=== PATIENT | female | born 1935 | race Caucasian/White ===

== ENCOUNTER 2019-05-27 08:12 | Outpatient (CLI) | payer MEDICARE, SELFPAY ==
--- NOTE | ~2019-05-27 | CT_ITS ---
EXAMINATION: CT abdomen pelvis w con DATE: 05/27/2019 09:04 INDICATION: Restaging, malignant neoplasm of ascending colon TECHNIQUE: Computed tomography (CT) of the abdomen and pelvis was performed with 100 cc Omnipaque 350 intravenous contrast. Automated exposure control and iterative reconstruction technique were employe d. Exam dose: 366.96 mGy-cm total exam DLP. COMPARISON: 06/02/2017 CT abdomen pelvis FINDINGS: There is mild atelectasis and/or scarring at the lung bases. Cardiomegaly. No pericardial o r pleural effusion. There are multiple small stones in the dependent aspect of the gallbladder. No gallbladder wall thick ening or pericholecystic fluid or bile duct or pancreatic duct dilatation. There are multiple splenic and occasional hepatic calcified granulomas. No hepatic, splenic, pancreatic, and adrenal or renal s pace-occupying mass lesion is detected. No urinary tract calculus or hydroureteronephrosis is evident . There is extensive atherosclerotic calcification of the abdominal aorta and iliac and femoral artery calcification. No abdominal aortic aneurysm. No intraperitoneal or retroperitoneal or pelvic mass les ion or adenopathy or ascites. The uterus, adnexal areas and urinary bladder are unremarkable. There is prominent diverticulosis of the colon. A short segment of transverse colon partially occupie s and umbilical hernia. Status post right colectomy. No bowel obstruction or intraperitoneal free air is detected. Old healed right inferior pubic ramus fracture. There is prominent degenerative change at the apophys eal joints with associated grade 1 anterolisthesis at L4-5. There is severe degenerative disc disease at L2-3, L3-4 and L5-S1. Diffuse osteopenia. IMPRESSION: Status post right colectomy for colon cancer; no metastatic disease identified Cardiomegaly Cholelithiasis Prominent diverticulosis of the colon; no CT evidence of diverticulitis Umbilical hernia containing part of a short segment of the transverse colon Reviewed, dictated and finalized at Location A. Reviewed, dictated and finalized at location B. ATIONS INTERN IMPRESSION: Status post right colectomy for colon cancer; no metastatic diseas e identified Cardiomegaly Cholelithiasis Prominent diverticulosis of the colon; no CT evidence of diverticulitis Umbilical hernia containing part of a short segment of the transverse colon
[2019-05-27 08:51] LABS: Blood Urea Nitrogen 19 mg/dL (8-26); Estimated Glomerular Filt Rate 53
== END 2019-05-27 08:13 | disposition home or self-care (01) ==
PROVIDERS: PCP Family Medicine; Visit Provider Internal Medicine Hematology & Oncology
DX: C18.2 Malignant neoplasm of ascending colon (principal); Z90.49 Acquired absence of other specified parts of digestive tract; I51.7 Cardiomegaly; K57.90 Diverticulosis of intestine, part unspecified, without perforation or abscess without bleeding; K42.9 Umbilical hernia without obstruction or gangrene
CPT/HCPCS: 36415; 74177; 80053; 82378; 82607; 82746; 85025; Q9967

== ENCOUNTER 2019-05-27 09:24 | Outpatient (CLI) | payer MEDICARE, SELFPAY ==
[2019-05-27 09:45] LABS: Basophils Absolute Auto 0.1 K/mm3 (0.0-0.1); Basophils Percent Auto 0.7 % (0.2-1.2); Eosinophils Absolute Auto 0.3 K/mm3 (0-0.3); Eosinophils Percent Auto 3.7 % (0-4.4); Hematocrit 41.5 % (37.0-47.0); Hemoglobin 13.3 g/dL (12.0-15.0); Immature Granulocyte Absolute 0.01 K/mm3 (0.00-0.031); Immature Granulocyte Percent A 0.1 % (0-0.5); Lymphocytes Absolute Auto 1.59 K/mm3 (0.9-3.2); Lymphocytes Percent Auto 19.7 % (18.3-44.2); Mean Corpuscular Hemoglobin 33.1 pg (26-34); Mean Corpuscular Volume 103.2 fl (80-100); Mean Platelet Volume 12.1 fl (7.4-10.4); Monocytes Absolute Auto 1.1 K/mm3 (0.1-0.6); Neutrophils Absolute Auto 5.1 K/mm3 (1.3-6.7); Neutrophils Percent Auto 62.8 % (45.5-73.1); Platelet Count Result 174 k/mm3 (150-375); Red Blood Count 4.02 M/mm3 (4.2-5.4); Red Cell Distribution Width 14.5 % (11.5-14.5); White Blood Count 8.1 K/mm3 (4.5-10.0)
[2019-05-27 11:56] LABS: Alanine Aminotransferase 31 U/L (4-35); Albumin Level 4.2 g/dL (3.5-5.1); Alkaline Phosphatase 75 U/L (38-126); Aspartate Amino Transferase 36 U/L (14-36); Bilirubin,Total 0.6 mg/dL (0.2-1.3); Blood Urea Nitrogen 18 mg/dL (7-17); Calcium 9.7 mg/dL (8.4-10.2); Carbon Dioxide 28 mmol/L (22-30); Chloride 98 mmol/L (98-107); Estimated Glomerular Filt Rate 60; Glucose 85 mg/dL (65-105); Potassium 4.4 mmol/L (3.4-5.0); Sodium 139 mmol/L (137-145)
[2019-05-27 12:28] LABS: Carcinoembryonic Antigen 2.1 ng/mL (0.0-3.0)
[2019-05-27 13:03] LABS: Folic Acid > 20.0 ng/mL (2.76->20)
== END 2019-05-27 09:25 | disposition home or self-care (01) ==
PROVIDERS: PCP Family Medicine; Visit Provider Internal Medicine Hematology & Oncology
DX: C18.2 Malignant neoplasm of ascending colon (principal)
CPT/HCPCS: 36415; 80053; 82378; 82607; 82746; 85025

== ENCOUNTER 2019-11-25 10:17 | Outpatient (CLI) | payer MEDICARE, SELFPAY ==
[2019-11-25 10:38] LABS: Basophils Absolute Auto 0.1 K/mm3 (0.0-0.1); Basophils Percent Auto 0.7 % (0.2-1.2); Eosinophils Absolute Auto 0.6 K/mm3 (0-0.3); Eosinophils Percent Auto 7.2 % (0-4.4); Hemoglobin 12.6 g/dL (12.0-15.0); Immature Granulocyte Absolute 0.02 K/mm3 (0.00-0.031); Immature Granulocyte Percent A 0.2 % (0-0.5); Lymphocytes Absolute Auto 1.62 K/mm3 (0.9-3.2); Lymphocytes Percent Auto 18.9 % (18.3-44.2); Mean Corpuscular HGB Conc 32.3 g/dl (32-36); Mean Corpuscular Hemoglobin 32.8 pg (26-34); Mean Corpuscular Volume 101.6 fl (80-100); Mean Platelet Volume 12.1 fl (7.4-10.4); Monocytes Absolute Auto 1.2 K/mm3 (0.1-0.6); Monocytes Percent Auto 14.3 % (2.6-8.5); Neutrophils Percent Auto 58.7 % (45.5-73.1); Platelet Count Result 173 k/mm3 (150-375); Red Blood Count 3.84 M/mm3 (4.2-5.4); Red Cell Distribution Width 15.4 % (11.5-14.5); White Blood Count 8.6 K/mm3 (4.5-10.0)
[2019-11-25 12:19] LABS: Alanine Aminotransferase 36 U/L (4-35); Albumin Level 4.2 g/dL (3.5-5.1); Alkaline Phosphatase 87 U/L (38-126); Anion Gap 8 mmol/L (8-16); Aspartate Amino Transferase 34 U/L (14-36); Bilirubin,Total 0.6 mg/dL (0.2-1.3); Blood Urea Nitrogen 18 mg/dL (7-17); Calcium 9.5 mg/dL (8.4-10.2); Carbon Dioxide 26 mmol/L (22-30); Chloride 103 mmol/L (98-107); Estimated Glomerular Filt Rate > 60; Glucose 108 mg/dL (65-105); Potassium 4.7 mmol/L (3.4-5.0); Sodium 137 mmol/L (137-145)
[2019-11-25 12:48] LABS: Carcinoembryonic Antigen 1.8 ng/mL (0.0-3.0)
== END 2019-11-25 10:18 | disposition home or self-care (01) ==
LOC: ANHLAB 10:19
PROVIDERS: PCP Family Medicine; Visit Provider Internal Medicine Hematology & Oncology
DX: C18.2 Malignant neoplasm of ascending colon (principal)
CPT/HCPCS: 36415; 80053; 82378; 85025

== ENCOUNTER 2020-01-27 10:41 | Outpatient (CLI) | payer MEDICARE, SELFPAY ==
[2020-01-27 13:19] LABS: Cholesterol 168 mg/dL (0-200); HDL Direct 55 mg/dL; Triglycerides 212 mg/dL (<150)
[2020-01-27 13:30] LABS: LDL Cholesterol Direct 67 mg/dL
== END 2020-01-27 10:42 | disposition home or self-care (01) ==
PROVIDERS: PCP Family Medicine; Visit Provider Family Medicine
DX: E78.5 Hyperlipidemia, unspecified (principal); E03.9 Hypothyroidism, unspecified; I10 Essential (primary) hypertension
CPT/HCPCS: 36415; 80061; 84443

== ENCOUNTER 2020-02-05 10:43 | Outpatient (CLI) | payer MEDICARE, SELFPAY ==
[2020-02-05 11:14] LABS: Hematocrit 41.1 % (37.0-47.0); Hemoglobin 13.2 g/dL (12.0-15.0); Mean Corpuscular HGB Conc 32.1 g/dl (32-36); Mean Corpuscular Hemoglobin 32.8 pg (26-34); Mean Platelet Volume 11.8 fl (7.4-10.4); Platelet Count Result 184 k/mm3 (150-375); Red Blood Count 4.03 M/mm3 (4.2-5.4); Red Cell Distribution Width 14.4 % (11.5-14.5)
[2020-02-05 13:12] LABS: Add Urine Microscopic? YES; Appearance Urine Clear (Clear); Bacteria Urine Trace /hpf; Bilirubin Urine Negative (Negative); Blood Urine Negative (Negative); Color Urine Yellow (Yellow); Glucose Urine UA Negative (Negative); Ketones Urine Negative (Negative); Leukocyte Esterase Ur Trace LEU/UL (Negative); Mucus Urine Rare /lpf; Nitrate Urine Negative (Negative); Protein Urine Negative (Negative); RBC Urine 0-2 /hpf (0-2); Squamous Epithelial Cell Urine Rare /hpf (Few); Transitional Epi Cells Urine Rare /hpf (None Seen); Urobilinogen Urine Negative mg/dL (<2.0)
[2020-02-05 13:17] LABS: Alanine Aminotransferase 24 U/L (4-35); Albumin Level 4.2 g/dL (3.5-5.1); Alkaline Phosphatase 71 U/L (38-126); Anion Gap 8 mmol/L (8-16); Aspartate Amino Transferase 30 U/L (14-36); Bilirubin,Total 0.5 mg/dL (0.2-1.3); Blood Urea Nitrogen 22 mg/dL (7-17); CRP < 0.5 mg/dL (<1.0); Calcium 10.1 mg/dL (8.4-10.2); Carbon Dioxide 29 mmol/L (22-30); Chloride 102 mmol/L (98-107); Estimated Glomerular Filt Rate > 60; Glucose 104 mg/dL (65-105); Potassium 4.4 mmol/L (3.4-5.0); Sodium 139 mmol/L (137-145)
[2020-02-05 13:23] LABS: Erythrocyte Sedimentation Rate 15 mm/hr (0-20)
== END 2020-02-05 10:44 | disposition home or self-care (01) ==
PROVIDERS: PCP Family Medicine; Visit Provider Internal Medicine
DX: M35.3 Polymyalgia rheumatica (principal); M19.90 Unspecified osteoarthritis, unspecified site; Z79.899 Other long term (current) drug therapy
CPT/HCPCS: 36415; 80053; 81001; 85027; 85652; 86140

== ENCOUNTER 2020-05-12 13:00 | Outpatient (CLI) | payer MEDICARE, SELFPAY ==
[2020-05-12 13:18] LABS: Basophils Absolute Auto 0.1 K/mm3 (0.0-0.1); Basophils Percent Auto 0.8 % (0.2-1.2); Eosinophils Absolute Auto 0.3 K/mm3 (0-0.3); Eosinophils Percent Auto 3.6 % (0-4.4); Hematocrit 40.4 % (37.0-47.0); Hemoglobin 12.9 g/dL (12.0-15.0); Immature Granulocyte Absolute 0.03 K/mm3 (0.00-0.031); Immature Granulocyte Percent A 0.3 % (0-0.5); Lymphocytes Absolute Auto 2.11 K/mm3 (0.9-3.2); Lymphocytes Percent Auto 22.9 % (18.3-44.2); Mean Corpuscular HGB Conc 31.9 g/dl (32-36); Mean Corpuscular Hemoglobin 32.7 pg (26-34); Mean Corpuscular Volume 102.3 fl (80-100); Mean Platelet Volume 12.3 fl (7.4-10.4); Monocytes Absolute Auto 0.9 K/mm3 (0.1-0.6); Monocytes Percent Auto 10.1 % (2.6-8.5); Neutrophils Absolute Auto 5.7 K/mm3 (1.3-6.7); Neutrophils Percent Auto 62.3 % (45.5-73.1); Platelet Count Result 184 k/mm3 (150-375); Red Blood Count 3.95 M/mm3 (4.2-5.4); Red Cell Distribution Width 14.3 % (11.5-14.5); White Blood Count 9.2 K/mm3 (4.5-10.0)
[2020-05-12 16:47] LABS: Alanine Aminotransferase 22 U/L (4-35); Alkaline Phosphatase 77 U/L (38-126); Anion Gap 8 mmol/L (8-16); Aspartate Amino Transferase 29 U/L (14-36); Bilirubin,Total 0.4 mg/dL (0.2-1.3); Blood Urea Nitrogen 19 mg/dL (7-17); Calcium 9.7 mg/dL (8.4-10.2); Carbon Dioxide 28 mmol/L (22-30); Chloride 105 mmol/L (98-107); Estimated Glomerular Filt Rate 60; Glucose 121 mg/dL (65-105); Potassium 4.2 mmol/L (3.4-5.0); Sodium 141 mmol/L (137-145)
[2020-05-12 16:49] LABS: CRP < 0.5 mg/dL (<1.0)
[2020-05-12 17:11] LABS: Erythrocyte Sedimentation Rate 15 mm/hr (0-20)
[2020-05-12 17:17] LABS: Carcinoembryonic Antigen 1.6 ng/mL (0.0-3.0)
== END 2020-05-12 13:01 | disposition home or self-care (01) ==
LOC: ANHLAB 13:02
PROVIDERS: Internal Medicine Hematology & Oncology; PCP Family Medicine; Visit Provider Internal Medicine
DX: M19.90 Unspecified osteoarthritis, unspecified site (principal); C18.2 Malignant neoplasm of ascending colon; M35.3 Polymyalgia rheumatica
CPT/HCPCS: 36415; 80053; 82378; 85025; 85652; 86140

== ENCOUNTER 2020-08-20 15:32 | Outpatient (CLI) | payer MEDICARE, SELFPAY ==
--- NOTE | ~2020-08-20 | MM_ITS ---
EXAMINATION: MM screening [facility] BI w josiane HISTORY: Screening mammogram TECHNIQUE: Craniocaudal and mediolateral oblique 3-D tomosynthesis images were obtained and synthetic 2-D images were generated. CAD analysis was submitted and interpreted. COMPARISON: 12/18/2017, 12/15/2016, 12/07/2015 BREAST PARENCHYMAL COMPOSITION: There are scattered areas of fibroglandular density. FINDINGS: There is no evidence of suspicious mass, calcification, or architectural distortion to sugg est malignancy in either breast. There has been no suspicious interval change. IMPRESSION: 1. No mammographic evidence of malignancy. 2. Recommend routine screening mammography in one year. BI-RADS Category 1: Negative Reviewed, dictated and finalized at location A.
== END 2020-08-20 15:33 | disposition home or self-care (01) ==
LOC: ANHIMG 15:37
PROVIDERS: PCP Family Medicine; Visit Provider Obstetrics & Gynecology
DX: Z12.31 Encounter for screening mammogram for malignant neoplasm of breast (principal)
CPT/HCPCS: 77063; 77067

== ENCOUNTER 2020-12-15 09:58 | Outpatient (CLI) | payer MEDICARE, SELFPAY ==
[2020-12-15 10:14] LABS: Basophils Absolute Auto 0.1 K/mm3 (0.0-0.1); Basophils Percent Auto 0.8 % (0.2-1.2); Eosinophils Absolute Auto 0.3 K/mm3 (0-0.3); Eosinophils Percent Auto 3.4 % (0-4.4); Hematocrit 41.5 % (37.0-47.0); Hemoglobin 13.4 g/dL (12.0-15.0); Immature Granulocyte Absolute 0.03 K/mm3 (0.00-0.031); Immature Granulocyte Percent A 0.3 % (0-0.5); Lymphocytes Absolute Auto 1.85 K/mm3 (0.9-3.2); Lymphocytes Percent Auto 20.4 % (18.3-44.2); Mean Corpuscular HGB Conc 32.3 g/dl (32-36); Mean Corpuscular Volume 102.2 fl (80-100); Mean Platelet Volume 12.1 fl (7.4-10.4); Monocytes Absolute Auto 1.1 K/mm3 (0.1-0.6); Monocytes Percent Auto 11.6 % (2.6-8.5); Neutrophils Absolute Auto 5.7 K/mm3 (1.3-6.7); Neutrophils Percent Auto 63.5 % (45.5-73.1); Platelet Count Result 181 k/mm3 (150-375); Red Blood Count 4.06 M/mm3 (4.2-5.4); Red Cell Distribution Width 14.1 % (11.5-14.5); White Blood Count 9.1 K/mm3 (4.5-10.0)
[2020-12-15 20:44] LABS: Alanine Aminotransferase 23 U/L (4-35); Albumin Level 4.3 g/dL (3.5-5.1); Alkaline Phosphatase 75 U/L (38-126); Anion Gap 8 mmol/L (8-16); Aspartate Amino Transferase 28 U/L (14-36); Bilirubin,Total 0.6 mg/dL (0.2-1.3); Blood Urea Nitrogen 18 mg/dL (7-17); Calcium 9.7 mg/dL (8.4-10.2); Carbon Dioxide 26 mmol/L (22-30); Chloride 104 mmol/L (98-107); Estimated Glomerular Filt Rate > 60; Glucose 101 mg/dL (65-110); Potassium 4.2 mmol/L (3.4-5.0); Sodium 138 mmol/L (137-145)
[2020-12-15 21:13] LABS: Carcinoembryonic Antigen 1.9 ng/mL (0.0-3.0)
== END 2020-12-15 09:59 | disposition home or self-care (01) ==
LOC: ANHLAB 10:02
PROVIDERS: PCP Family Medicine; Visit Provider Internal Medicine Hematology & Oncology
DX: C18.2 Malignant neoplasm of ascending colon (principal)
CPT/HCPCS: 36415; 80053; 82378; 85025

== ENCOUNTER 2021-02-01 12:13 | Outpatient (CLI) | payer MEDICARE, SELFPAY ==
[2021-02-01 16:44] LABS: Cholesterol 161 mg/dL (0-200); HDL Direct 51 mg/dL; Triglycerides 233 mg/dL (<150)
[2021-02-01 16:54] LABS: LDL Cholesterol Direct 52 mg/dL
[2021-02-01 17:00] LABS: Vitamin D 25 Hydroxy 38.9 ng/mL
== END 2021-02-01 12:14 | disposition home or self-care (01) ==
PROVIDERS: PCP Family Medicine; Visit Provider Family Medicine
DX: E03.9 Hypothyroidism, unspecified (principal); E78.5 Hyperlipidemia, unspecified; E55.9 Vitamin D deficiency, unspecified
CPT/HCPCS: 36415; 80061; 82306; 84443

== ENCOUNTER 2021-06-14 08:26 | Outpatient (CLI) | payer MEDICARE, SELFPAY ==
--- NOTE | ~2021-06-14 | CT_ITS ---
EXAMINATION: CT abdomen pelvis w con EXAM DATE: 06/14/2021 08:52 INDICATION: Colon cancer. TECHNIQUE: Spiral CT of the abdomen and pelvis was performed following intravenous injection of 100 m L Omnipaque 350. Axial, coronal and sagittal images of the abdomen and pelvis were reviewed. The do se-length product (DLP) for this examination was 838.34 mGy-cm. The exposure was tailored according to patient size (auto mA exposure control), and iterative reconstruction (ASIR) was used as additiona l dose reduction technique. Comparison is made to prior examination from 05/27/2019. FINDINGS: The liver, spleen, adrenal glands and pancreas are unremarkable. There are gallstones with in an otherwise unremarkable gallbladder. No evidence of obstructive biliary disease. Portal and sp lenic veins are patent. Kidneys enhance symmetrically. There is no hydronephrosis. The uterus is unremarkable. The bladder is unremarkable. There is no retroperitoneal or pelvic lymphadenopathy. There is mild to moderate scattered arteriosclerotic disease. Upper abdominal wall dehiscence with gastric antrum bulging within Probable cecal resection. There is moderate colonic diverticulosis. There is no adjacent inflammator y change to suggest diverticulitis. The stomach and small bowel are unremarkable. There is expected amount of colonic stool. No free intraperitoneal gas. There is cardiomegaly. There are no pleura l or pericardial effusions. The lung bases are unremarkable. Old right rib fracture. Mild lumbar le voscoliosis. Advanced mid lumbar disc disease. There are no osteoblastic or osteolytic lesions identi fied. IMPRESSION: 1. Right hemicolectomy. Stable exam, no evidence of metastatic disease. 2. Colonic diverticulosis. 3. Cardiomegaly. Reviewed, dictated and finalized at location A. GER BUSINESS CONTINUITY
[2021-06-14 08:47] LABS: Estimated Glomerular Filt Rate > 60
== END 2021-06-14 08:27 | disposition home or self-care (01) ==
PROVIDERS: PCP Family Medicine; Visit Provider Internal Medicine Hematology & Oncology
DX: C18.2 Malignant neoplasm of ascending colon (principal); Z90.49 Acquired absence of other specified parts of digestive tract; K57.90 Diverticulosis of intestine, part unspecified, without perforation or abscess without bleeding; I51.7 Cardiomegaly
CPT/HCPCS: 36415; 74177; 80053; 82378; 85025; Q9967

== ENCOUNTER 2021-06-14 09:00 | Outpatient (CLI) | payer MEDICARE, SELFPAY ==
[2021-06-14 09:23] LABS: Basophils Absolute Auto 0.1 K/mm3 (0.0-0.1); Basophils Percent Auto 0.8 % (0.2-1.2); Eosinophils Absolute Auto 0.2 K/mm3 (0-0.3); Eosinophils Percent Auto 2.8 % (0-4.4); Hematocrit 41.8 % (37.0-47.0); Hemoglobin 13.1 g/dL (12.0-15.0); Immature Granulocyte Absolute 0.02 K/mm3 (0.00-0.031); Immature Granulocyte Percent A 0.2 % (0-0.5); Lymphocytes Absolute Auto 1.61 K/mm3 (0.9-3.2); Lymphocytes Percent Auto 19.1 % (18.3-44.2); Mean Corpuscular HGB Conc 31.3 g/dl (32-36); Mean Corpuscular Volume 105.3 fl (80-100); Mean Platelet Volume 11.8 fl (7.4-10.4); Monocytes Percent Auto 11.6 % (2.6-8.5); Neutrophils Absolute Auto 5.5 K/mm3 (1.3-6.7); Neutrophils Percent Auto 65.5 % (45.5-73.1); Platelet Count Result 200 k/mm3 (150-375); Red Blood Count 3.97 M/mm3 (4.2-5.4); Red Cell Distribution Width 15.1 % (11.5-14.5); White Blood Count 8.5 K/mm3 (4.5-10.0)
[2021-06-14 10:32] LABS: Alanine Aminotransferase 24 U/L (4-35); Albumin Level 4.3 g/dL (3.5-5.1); Alkaline Phosphatase 83 U/L (38-126); Anion Gap 8 mmol/L (8-16); Aspartate Amino Transferase 30 U/L (14-36); Bilirubin,Total 0.7 mg/dL (0.2-1.3); Blood Urea Nitrogen 21 mg/dL (7-17); Calcium 9.1 mg/dL (8.4-10.2); Carbon Dioxide 27 mmol/L (22-30); Chloride 103 mmol/L (98-107); Estimated Glomerular Filt Rate > 60; Glucose 112 mg/dL (65-110); Potassium 4.2 mmol/L (3.4-5.0); Sodium 138 mmol/L (137-145)
[2021-06-14 10:58] LABS: Carcinoembryonic Antigen 1.5 ng/mL (0.0-3.0)
== END 2021-06-14 09:01 | disposition home or self-care (01) ==
LOC: ANHLAB 09:03
PROVIDERS: PCP Family Medicine; Visit Provider Internal Medicine Hematology & Oncology
DX: C18.2 Malignant neoplasm of ascending colon (principal)
CPT/HCPCS: 36415; 80053; 82378; 85025

== ENCOUNTER 2022-02-01 10:46 | Outpatient (CLI) | payer MEDICARE, SELFPAY ==
[2022-02-01 19:36] LABS: Basophils Percent Auto 0.3 % (0.2-1.2); Eosinophils Absolute Auto 0.9 K/mm3 (0-0.3); Eosinophils Percent Auto 7.2 % (0-4.4); Hemoglobin 13.2 g/dL (12.0-15.0); Immature Granulocyte Absolute 0.04 K/mm3 (0.00-0.031); Immature Granulocyte Percent A 0.3 % (0-0.5); Lymphocytes Absolute Auto 2.17 K/mm3 (0.9-3.2); Lymphocytes Percent Auto 16.6 % (18.3-44.2); Mean Corpuscular HGB Conc 31.4 g/dl (32-36); Mean Corpuscular Hemoglobin 32.8 pg (26-34); Mean Corpuscular Volume 104.5 fl (80-100); Mean Platelet Volume 12.2 fl (7.4-10.4); Monocytes Absolute Auto 1.2 K/mm3 (0.1-0.6); Monocytes Percent Auto 8.8 % (2.6-8.5); Neutrophils Absolute Auto 8.7 K/mm3 (1.3-6.7); Neutrophils Percent Auto 66.8 % (45.5-73.1); Platelet Count Result 267 k/mm3 (150-375); Red Blood Count 4.02 M/mm3 (4.2-5.4); Red Cell Distribution Width 14.9 % (11.5-14.5); White Blood Count 13.1 K/mm3 (4.5-10.0)
[2022-02-01 21:06] LABS: Alanine Aminotransferase 24 U/L (6-35); Albumin Level 4.4 g/dL (3.5-5.1); Alkaline Phosphatase 94 U/L (38-126); Anion Gap 10 mmol/L (8-16); Aspartate Amino Transferase 30 U/L (14-36); Bilirubin,Total 0.5 mg/dL (0.2-1.3); Blood Urea Nitrogen 18 mg/dL (7-17); Calcium 9.7 mg/dL (8.4-10.2); Carbon Dioxide 25 mmol/L (22-30); Chloride 106 mmol/L (98-107); Cholesterol 139 mg/dL (0-200); Estimated Glomerular Filt Rate 59; Glucose 111 mg/dL (65-110); HDL Direct 36 mg/dL; Potassium 4.2 mmol/L (3.4-5.0); Sodium 141 mmol/L (137-145); Triglycerides 205 mg/dL (<150); Uric Acid 7.2 mg/dL (2.5-7.5)
[2022-02-01 21:15] LABS: LDL Cholesterol Direct 49 mg/dL
[2022-02-01 22:10] LABS: Hemoglobin A1C 6.5 % (<5.7)
[2022-02-01 22:18] LABS: Vitamin D 25 Hydroxy 37.3 ng/mL
== END 2022-02-01 10:47 | disposition home or self-care (01) ==
LOC: ANHGOSHLAB 10:50
PROVIDERS: PCP Family Medicine; Visit Provider Family Medicine
DX: I10 Essential (primary) hypertension (principal); M25.442 Effusion, left hand; E53.8 Deficiency of other specified B group vitamins; E78.5 Hyperlipidemia, unspecified; E55.9 Vitamin D deficiency, unspecified; I50.9 Heart failure, unspecified; G57.93 Unspecified mononeuropathy of bilateral lower limbs; E03.9 Hypothyroidism, unspecified; R73.9 Hyperglycemia, unspecified; G47.00 Insomnia, unspecified
CPT/HCPCS: 36415; 71046; 73130; 80053; 80061; 82306; 82607; 83036; 84443; 84550; 85025

== ENCOUNTER → 2022-02-01 11:00 | Outpatient (CLI) | payer MEDICARE, SELFPAY ==
--- NOTE | ~2022-02-01 | XR_ITS ---
XR chest 2V 02/01/2022 11:17 Indication: Cough Procedure: 2 view chest Comparison: Comparison to multiple prior studies sequentially, with oldest reviewed study dated 11/22. Findings: Status post median sternotomy for CABG. Cardiomegaly. There is mild interstitial edema. The re is elevation of the left diaphragm. There are healed right rib fractures with deformity of the [address]. There is deformity of the clavicles bilaterally, unchanged. Impression: 1: Cardiomegaly with mild interstitial edema. Reviewed, dictated and finalized at location B. Impression: 1: Cardiomegaly with mild interstitial edema.
--- NOTE | ~2022-02-01 | XR_ITS ---
XR hand LT min 3V DATE: 02/01/2022 11:17 INDICATION: Left hand swelling TECHNIQUE: 3 views COMPARISON: None FINDINGS: There is diffuse osteopenia. There is polyarticular osteoarthritis, including triscaphe, first carpometacarpal and particular mult iple interphalangeal joints. No fracture or dislocation, periosteal reaction or bone destruction. IMPRESSION: Polyarticular osteoarthritis Osteopenia Reviewed, dictated and finalized at location A.
== END ==
PROVIDERS: PCP Family Medicine; Visit Provider Family Medicine
DX: R05.9 Cough, unspecified (principal); M25.442 Effusion, left hand; M19.042 Primary osteoarthritis, left hand; M85.842 Other specified disorders of bone density and structure, left hand; I51.7 Cardiomegaly; J84.9 Interstitial pulmonary disease, unspecified
CPT/HCPCS: 71046; 73130

== ENCOUNTER 2022-02-14 10:54 | Outpatient (CLI) | payer MEDICARE, SELFPAY ==
[2022-02-14 19:51] LABS: Anion Gap 9 mmol/L (8-16); Blood Urea Nitrogen 22 mg/dL (7-17); Calcium 9.4 mg/dL (8.4-10.2); Carbon Dioxide 25 mmol/L (22-30); Chloride 105 mmol/L (98-107); Estimated Glomerular Filt Rate 59; Glucose 105 mg/dL (65-110); Potassium 4.2 mmol/L (3.4-5.0); Sodium 139 mmol/L (137-145)
== END 2022-02-14 10:55 | disposition home or self-care (01) ==
LOC: ANHGOSHLAB 10:58
PROVIDERS: PCP Family Medicine; Visit Provider Specialist
DX: I25.10 Atherosclerotic heart disease of native coronary artery without angina pectoris (principal)
CPT/HCPCS: 36415; 80048

== ENCOUNTER 2022-03-14 14:08 | Outpatient (CLI) | payer MEDICARE, SELFPAY ==
[2022-03-14 19:05] LABS: Appearance Urine Slightly Cloudy (Clear); Bilirubin Urine Negative (Negative); Blood Urine Negative (Negative); Color Urine Yellow (Yellow); Glucose Urine UA Negative (Negative); Ketones Urine Negative (Negative); Leukocyte Esterase Ur 1+ LEU/UL (Negative); Nitrate Urine Negative (Negative); Protein Urine 2+ mg/dL (Negative); Urobilinogen Urine 0.2 mg/dL (<2.0)
[2022-03-14 19:10] LABS: Bacteria Urine Trace /hpf; Mucus Urine Rare /lpf; RBC Urine 21-50 /hpf (0-2); Squamous Epithelial Cell Urine Rare /hpf (Few); WBC Urine >75 /hpf
[2022-03-14 19:14] LABS: Add Urine Microscopic? YES
== END 2022-03-14 14:09 | disposition home or self-care (01) ==
LOC: ANHGOSHLAB 14:12
PROVIDERS: PCP Family Medicine; Visit Provider Family Medicine
DX: R35.0 Frequency of micturition (principal)
CPT/HCPCS: 81001; 87077; 87086; 87186

== ENCOUNTER 2022-03-27 01:42 | Emergency (ER) | payer MEDICARE, SELFPAY ==
[2022-03-27] VITALS (13 sets, daily range): BP systolic 151–168; BP diastolic 52–94; PULSE 56–77; RESP 18–29; TEMP 36.5; O2SAT 94–99
--- NOTE | ~2022-03-27 | XR_ITS ---
EXAMINATION: XR chest 2V DATE: 03/27/2022 04:58 INDICATION: Cough TECHNIQUE: PA and lateral views of the chest are obtained. COMPARISON: 02/01/2022 FINDINGS: There is mild atelectasis of the lung bases. No pleural effusion or pneumothorax. The heart size is normal. Median sternotomy wires and mediastinal surgical clips are seen, likely from prior c oronary artery bypass grafting. There are healed fractures of the clavicles and multiple right ribs. A coronary artery stent is noted. There is mild thoracic spondylosis. IMPRESSION: 1. Mild atelectasis of the lung bases. Reviewed, dictated and finalized at location A. S OPERATIONS ASSISTANT
[2022-03-27 05:09] LABS: Basophils Absolute Auto 0.1 K/mm3 (0.0-0.1); Basophils Percent Auto 0.7 % (0.2-1.2); Eosinophils Absolute Auto 0.3 K/mm3 (0-0.3); Eosinophils Percent Auto 2.5 % (0-4.4); Hematocrit 41.5 % (37.0-47.0); Hemoglobin 13.3 g/dL (12.0-15.0); Immature Granulocyte Absolute 0.05 K/mm3 (0.00-0.031); Immature Granulocyte Percent A 0.5 % (0-0.5); Lymphocytes Absolute Auto 2.74 K/mm3 (0.9-3.2); Lymphocytes Percent Auto 25.6 % (18.3-44.2); Mean Corpuscular Hemoglobin 32.8 pg (26-34); Mean Corpuscular Volume 102.2 fl (80-100); Mean Platelet Volume 11.8 fl (7.4-10.4); Monocytes Absolute Auto 1.1 K/mm3 (0.1-0.6); Monocytes Percent Auto 10.4 % (2.6-8.5); Neutrophils Absolute Auto 6.5 K/mm3 (1.3-6.7); Neutrophils Percent Auto 60.3 % (45.5-73.1); Platelet Count Result 184 k/mm3 (150-375); Red Blood Count 4.06 M/mm3 (4.2-5.4); Red Cell Distribution Width 15.3 % (11.5-14.5); White Blood Count 10.7 K/mm3 (4.5-10.0)
[2022-03-27 05:19] LABS: Alanine Aminotransferase 28 U/L (6-35); Albumin Level 4.6 g/dL (3.5-5.1); Alkaline Phosphatase 78 U/L (38-126); Anion Gap 8 mmol/L (8-16); Aspartate Amino Transferase 30 U/L (14-36); Bilirubin,Total 0.5 mg/dL (0.2-1.3); Blood Urea Nitrogen 20 mg/dL (7-17); Calcium 9.5 mg/dL (8.4-10.2); Carbon Dioxide 25 mmol/L (22-30); Chloride 105 mmol/L (98-107); Estimated CRCL calculation 48 ml/min; Estimated Glomerular Filt Rate > 60; Glucose 115 mg/dL (65-110); Potassium 3.9 mmol/L (3.4-5.0); Sodium 138 mmol/L (137-145)
[2022-03-27 05:27] LABS: NT Pro B Type Natriuretic Pept 3510 pg/mL (5-100)
[2022-03-27 05:32] LABS: INR 1.1; Prothrombin Time 13.3 Seconds (11.1-14.7)
[2022-03-27 05:33] LABS: Partial Thromboplastin Time 28.3 SECONDS (22.3-36.8)
--- NOTE | 2022-03-27 05:46 | ED.GENADULT ---
HPI - General Adult General Chief complaint: Unspecified Stated complaint: cough, bilateral arm numbness Time Seen by Provider: 03/27/22 04:09 History of Present Illness HPI narrative: Patient is an 86-year-old female who presents ER with 2 issues. First complaint is cough and nasal congestion. Ongoing for 2 days. Worse when she lays back. No dyspnea or exertional shortness of breath. She is without fevers or chills or sweats. No known sick contacts. Related Data Home Medications Medication Instructions Recorded Confirmed aspirin 81 mg tablet,delayed 81 mg PO DAILY 03/26/19 03/21/22 release (Adult Low Dose Aspirin) clopidogrel 75 mg tablet 75 mg PO DAILY 03/26/19 03/21/22 cranberry 500 mg capsule 1,000 mg PO DAILY 03/26/19 03/21/22 diclofenac sodium 1 % topical gel 2 gm topical QID 03/26/19 03/21/22 (Voltaren) isosorbide mononitrate 30 mg 30 mg PO DAILY 03/26/19 03/21/22 tablet,extended release 24 hr lactobacillus combination no.8 PO 03/26/19 03/21/22 [Adult Probiotic] multivitamin 1 tablet PO DAILY 03/26/19 03/21/22 nitroglycerin 0.4 mg sublingual 0.4 mg sublingual Q5M PRN 03/26/19 03/21/22 tablet (Nitrostat) calcium carbonate 600 mg calcium 600 mg PO DAILY 06/20/19 03/21/22 (1,500 mg) tablet (Calcium) peg 400-propylene glycol 0.4 %-0.3 1 drop ophthalmic (eye) DAILY PRN 06/20/19 03/21/22 % eye drops (Systane Ultra) psyllium seed (sugar) oral powder 1 tsp PO DAILY 06/20/19 03/21/22 (Metamucil (sugar) oral powder) spironolactone 25 mg tablet 6.25 mg PO DAILY 06/20/19 03/21/22 vitamin B complex (B 1 tablet PO DAILY 06/20/19 03/21/22 Complex-Vitamin B12 tablet) carvedilol 25 mg tablet 12.5 mg PO Q12H 01/27/20 03/21/22 acetaminophen 500 mg tablet 650 mg PO Q6H PRN 11/02/20 03/21/22 lactobacillus combination no.9 4 4,000 mmu cells PO DAILY 07/08/21 03/21/22 billion cell capsule (Adult 50 Plus Probiotic) peg 400-propylene glycol 0.4 %-0.3 1 drp EACH EYE DAILY PRN 07/08/21 03/21/22 % eye drops (Systane Ultra) psyllium husk 0.4 gram capsule 0.4 g PO DAILY 07/08/21 03/21/22 (Metamucil) bimatoprost 0.01 % eye drops 1 drp EACH EYE DAILY 08/09/21 03/21/22 furosemide 20 mg tablet 20 mg PO QAM 08/09/21 03/21/22 latanoprost 0.005 % eye drops 1 drp EACH EYE QPM 08/09/21 03/21/22 loteprednol etabonate 0.5 % eye 1 drp EACH EYE BID 10/20/21 03/21/22 drops,suspension timolol 0.5 % eye drops 1 drp RIGHT EYE DAILY 10/20/21 03/21/22 clobetasol 0.05 % topical cream 1 applic topical DAILY 02/01/22 03/21/22 tacrolimus 0.1 % topical ointment 1 applic topical .PRN 02/01/22 03/21/22 Allergies Allergy/AdvReac Type Severity Reaction Status Date / Time hydroxychloroquine Allergy Mild Rash Verified 03/21/22 11:47 clindamycin AdvReac Intermediate cDiff Verified 03/21/22 11:47 duloxetine AdvReac Mild Diarrhea Verified 03/21/22 11:47 PMFSH Past Medical History Medical History Anxiety CAD in [place] artery CHF (congestive heart failure) Chronic low back pain without sciatica Dyslipidemia, goal LDL below 100 Eczema Essential (primary) hypertension Generalized osteoarthritis of multiple sites History of Clostridioides difficile colitis 2018 History of colon cancer History of recurrent deep vein thrombosis (DVT) 2013 - left LE 2019 - left LE Hx of blood clots Hypothyroidism (acquired) Insomnia Neuropathy of lower extremity Polymyalgia rheumatica (~2019) Surgical History Surgical History History of back surgery 1990 for herniated disc L spine History of coronary artery stent placement 1999 History of eyelid surgery 03/2013 - b/l History of right hemicolectomy 05/2017 Hx of cataract extraction left - 11/2012 right - 12/2012 Family History Family History Mother Family history of cardiovascular disease Father Cerebrovascular accident
[2022-03-27 07:13] LABS: Influenza A QL RT-PCR Negative (Negative); Influenza B QL RT-PCR Negative (Negative); SARS-CoV-2 RNA PCR Negative
== END 2022-03-27 08:11 | disposition home or self-care (01) ==
PROVIDERS: Emergency Provider Emergency Medicine; PCP Family Medicine
DX: B34.9 Viral infection, unspecified (principal); I25.10 Atherosclerotic heart disease of native coronary artery without angina pectoris; I11.0 Hypertensive heart disease with heart failure; I50.9 Heart failure, unspecified; E03.9 Hypothyroidism, unspecified; Z85.038 Personal history of other malignant neoplasm of large intestine; Z20.822 Contact with and (suspected) exposure to COVID-19; Z79.82 Long term (current) use of aspirin
CPT/HCPCS: 36415; 71046; 80053; 83880; 84484; 85025; 85610; 85730; 87636; 99284

== ENCOUNTER 2022-04-07 10:31 | Outpatient (CLI) | payer MEDICARE, SELFPAY ==
[2022-04-08 10:46] LABS: Basophils Absolute Auto 0.1 K/mm3 (0.0-0.1); Eosinophils Absolute Auto 0.4 K/mm3 (0-0.3); Eosinophils Percent Auto 3.9 % (0-4.4); Hematocrit 41.7 % (37.0-47.0); Hemoglobin 13.1 g/dL (12.0-15.0); Immature Granulocyte Absolute 0.02 K/mm3 (0.00-0.031); Immature Granulocyte Percent A 0.2 % (0-0.5); Lymphocytes Absolute Auto 1.82 K/mm3 (0.9-3.2); Lymphocytes Percent Auto 20.5 % (18.3-44.2); Mean Corpuscular HGB Conc 31.4 g/dl (32-36); Mean Corpuscular Hemoglobin 32.7 pg (26-34); Mean Platelet Volume 12.9 fl (7.4-10.4); Monocytes Percent Auto 11.3 % (2.6-8.5); Neutrophils Absolute Auto 5.6 K/mm3 (1.3-6.7); Neutrophils Percent Auto 63.1 % (45.5-73.1); Platelet Count Result 199 k/mm3 (150-375); Red Blood Count 4.01 M/mm3 (4.2-5.4); Red Cell Distribution Width 15.4 % (11.5-14.5); White Blood Count 8.9 K/mm3 (4.5-10.0)
[2022-04-08 10:59] LABS: Alanine Aminotransferase 26 U/L (6-35); Albumin Level 4.4 g/dL (3.5-5.1); Alkaline Phosphatase 73 U/L (38-126); Anion Gap 6 mmol/L (8-16); Aspartate Amino Transferase 40 U/L (14-36); Bilirubin,Total 0.7 mg/dL (0.2-1.3); Blood Urea Nitrogen 27 mg/dL (7-17); Calcium 9.6 mg/dL (8.4-10.2); Carbon Dioxide 30 mmol/L (22-30); Chloride 105 mmol/L (98-107); Estimated Glomerular Filt Rate 59; Glucose 116 mg/dL (65-110); Potassium 4.2 mmol/L (3.4-5.0); Sodium 141 mmol/L (137-145)
[2022-04-08 11:26] LABS: Carcinoembryonic Antigen 1.5 ng/mL (0.0-3.0)
== END 2022-04-07 10:32 | disposition home or self-care (01) ==
LOC: ANHGOSHLAB 10:34
PROVIDERS: PCP Family Medicine; Visit Provider Internal Medicine Hematology & Oncology
DX: C18.2 Malignant neoplasm of ascending colon (principal)
CPT/HCPCS: 36415; 80053; 82378; 85025

== ENCOUNTER 2022-07-06 14:33 | Outpatient (CLI) | payer MEDICARE, SELFPAY ==
[2022-07-06 18:57] LABS: Appearance Urine Cloudy (Clear); Bacteria Urine None Seen /hpf; Bilirubin Urine Negative (Negative); Blood Urine Negative (Negative); Color Urine Dark Yellow (Yellow); Glucose Urine UA Negative (Negative); Ketones Urine Negative (Negative); Leukocyte Esterase Ur 3+ LEU/UL (Negative); Nitrate Urine Negative (Negative); Non Pathogenic Casts 0-2; Protein Urine 1+ mg/dL (Negative); RBC Urine 0-2 /hpf (0-2); Specific Grav Ur 1.023 (1.001-1.035); Squamous Epithelial Cell Urine None seen /hpf (Few); WBC Urine >100 /hpf
[2022-07-06 19:01] LABS: Add Urine Microscopic? YES
== END 2022-07-06 14:34 | disposition home or self-care (01) ==
LOC: ANHGOSHLAB 14:35
PROVIDERS: PCP Family Medicine; Visit Provider Family Medicine
DX: R30.0 Dysuria (principal)
CPT/HCPCS: 81001; 87086; 87147; 87181; 87186

== ENCOUNTER 2022-08-08 10:27 | Outpatient (CLI) | payer MEDICARE, SELFPAY ==
[2022-08-08 13:46] LABS: Basophils Absolute Auto 0.1 K/mm3 (0.0-0.1); Basophils Percent Auto 1.1 % (0.2-1.2); Eosinophils Percent Auto 10.7 % (0-4.4); Hematocrit 41.6 % (37.0-47.0); Hemoglobin 12.9 g/dL (12.0-15.0); Immature Granulocyte Absolute 0.03 K/mm3 (0.00-0.031); Immature Granulocyte Percent A 0.3 % (0-0.5); Lymphocytes Absolute Auto 2.04 K/mm3 (0.9-3.2); Mean Corpuscular Hemoglobin 32.3 pg (26-34); Mean Corpuscular Volume 104.3 fl (80-100); Mean Platelet Volume 12.3 fl (7.4-10.4); Monocytes Absolute Auto 0.9 K/mm3 (0.1-0.6); Monocytes Percent Auto 9.6 % (2.6-8.5); Neutrophils Absolute Auto 5.2 K/mm3 (1.3-6.7); Neutrophils Percent Auto 56.3 % (45.5-73.1); Platelet Count Result 192 k/mm3 (150-375); Red Blood Count 3.99 M/mm3 (4.2-5.4); Red Cell Distribution Width 15.4 % (11.5-14.5); White Blood Count 9.3 K/mm3 (4.5-10.0)
[2022-08-08 13:55] LABS: Hemoglobin A1C 6.1 % (<5.7)
[2022-08-08 13:56] LABS: Alanine Aminotransferase 29 U/L (6-35); Albumin Level 4.5 g/dL (3.5-5.1); Alkaline Phosphatase 70 U/L (38-126); Anion Gap 5 mmol/L (8-16); Aspartate Amino Transferase 55 U/L (14-36); Bilirubin,Total 0.8 mg/dL (0.2-1.3); Blood Urea Nitrogen 20 mg/dL (7-17); Calcium 9.6 mg/dL (8.4-10.2); Carbon Dioxide 31 mmol/L (22-30); Chloride 104 mmol/L (98-107); Cholesterol 169 mg/dL (0-200); Estimated Glomerular Filt Rate > 60; Glucose 94 mg/dL (65-110); HDL Direct 52 mg/dL; Sodium 140 mmol/L (137-145); Triglycerides 242 mg/dL (<150)
[2022-08-08 13:58] LABS: Appearance Urine Clear (Clear); Bacteria Urine 1+ /hpf; Bilirubin Urine Negative (Negative); Blood Urine Negative (Negative); Color Urine Yellow (Yellow); Glucose Urine UA Negative (Negative); Ketones Urine Negative (Negative); Leukocyte Esterase Ur 1+ LEU/UL (NEGATIVE); Nitrate Urine Negative (Negative); Non Pathogenic Casts 0-2; Protein Urine Trace mg/dL (Negative); RBC Urine 0-2 /hpf (0-2); Specific Grav Ur 1.018 (1.001-1.035); Squamous Epithelial Cell Urine None seen /hpf (Few); Urobilinogen Urine 0.2 mg/dL (<2.0); WBC Urine 21-50 /hpf (0-3); pH Urine 7.5 (5.0-9.0)
[2022-08-08 14:07] LABS: Add Urine Microscopic? YES
[2022-08-08 14:08] LABS: LDL Cholesterol Direct 53 mg/dL
== END 2022-08-08 10:28 | disposition home or self-care (01) ==
LOC: ANHGOSHLAB 10:30
PROVIDERS: PCP Family Medicine; Visit Provider Nurse Practitioner Family
DX: E03.9 Hypothyroidism, unspecified (principal); E11.9 Type 2 diabetes mellitus without complications; E78.5 Hyperlipidemia, unspecified; I10 Essential (primary) hypertension
CPT/HCPCS: 36415; 80053; 80061; 81001; 83036; 84443; 85025; 87086; 87147; 87181; 87186

== ENCOUNTER 2022-08-09 10:12 | Outpatient (NON) | payer MEDICARE, SELFPAY | END 2022-08-09 10:13 | disposition home or self-care (01) | PROVIDERS: PCP Family Medicine; Visit Provider Nurse Practitioner Family | DX: R82.90 Unspecified abnormal findings in urine (principal) | CPT/HCPCS: 87086; 87147; 87181; 87186 ==

== ENCOUNTER 2022-12-07 10:14 | Outpatient (CLI) | payer MEDICARE, SELFPAY ==
[2022-12-07 10:32] LABS: Hematocrit 39.3 % (37.0-47.0); Hemoglobin 12.8 g/dL (12.0-15.0); Mean Corpuscular HGB Conc 32.6 g/dl (32-36); Mean Corpuscular Hemoglobin 34.2 pg (26-34); Mean Corpuscular Volume 105.1 fl (80-100); Mean Platelet Volume 11.6 fl (7.4-10.4); Platelet Count Result 165 k/mm3 (150-375); Red Blood Count 3.74 M/mm3 (4.2-5.4); White Blood Count 13.5 K/mm3 (4.5-10.0)
[2022-12-07 14:37] LABS: Alanine Aminotransferase 40 U/L (6-35); Alkaline Phosphatase 53 U/L (38-126); Anion Gap 3 mmol/L (8-16); Aspartate Amino Transferase 35 U/L (14-36); Bilirubin,Total 0.6 mg/dL (0.2-1.3); Blood Urea Nitrogen 25 mg/dL (7-17); CRP < 0.5 mg/dL (<1.0); Calcium 9.2 mg/dL (8.4-10.2); Carbon Dioxide 31 mmol/L (22-30); Chloride 104 mmol/L (98-107); Estimated Glomerular Filt Rate 53; Glucose 120 mg/dL (65-110); Potassium 4.2 mmol/L (3.4-5.0); Sodium 138 mmol/L (137-145)
[2022-12-07 14:41] LABS: Appearance Urine Clear (Clear); Bacteria Urine None Seen /hpf; Bilirubin Urine Negative (Negative); Blood Urine Negative (Negative); Color Urine Dark Yellow (Yellow); Glucose Urine UA Negative (Negative); Ketones Urine Negative (Negative); Leukocyte Esterase Ur Trace LEU/UL (Negative); Nitrate Urine Negative (Negative); Non Pathogenic Casts 0-2; Protein Urine Negative (Negative); RBC Urine 0-2 /hpf (0-2); Specific Grav Ur 1.022 (1.001-1.035); Squamous Epithelial Cell Urine None seen /hpf (Few); Urobilinogen Urine 0.2 mg/dL (<2.0); pH Urine 6.5 (5.0-9.0)
[2022-12-07 14:51] LABS: Add Urine Microscopic? YES
[2022-12-07 15:30] LABS: Erythrocyte Sedimentation Rate 8 mm/hr (0-20)
== END 2022-12-07 10:15 | disposition home or self-care (01) ==
LOC: ANHLAB 10:17
PROVIDERS: Internal Medicine; PCP Family Medicine; Visit Provider Internal Medicine Hematology & Oncology
DX: G57.93 Unspecified mononeuropathy of bilateral lower limbs (principal); M35.3 Polymyalgia rheumatica; M19.90 Unspecified osteoarthritis, unspecified site
CPT/HCPCS: 36415; 80053; 81001; 85027; 85652; 86140; 87086

== ENCOUNTER 2023-01-04 14:11 | Outpatient (CLI) | payer MEDICARE, SELFPAY ==
[2023-01-04 14:26] LABS: Basophils Absolute Auto 0.1 K/mm3 (0.0-0.1); Basophils Percent Auto 0.5 % (0.2-1.2); Eosinophils Absolute Auto 0.1 K/mm3 (0-0.3); Eosinophils Percent Auto 0.5 % (0-4.4); Hematocrit 39.6 % (37.0-47.0); Hemoglobin 12.6 g/dL (12.0-15.0); Immature Granulocyte Absolute 0.08 K/mm3 (0.00-0.031); Immature Granulocyte Percent A 0.7 % (0-0.5); Lymphocytes Absolute Auto 1.13 K/mm3 (0.9-3.2); Lymphocytes Percent Auto 10.5 % (18.3-44.2); Mean Corpuscular HGB Conc 31.8 g/dl (32-36); Mean Corpuscular Hemoglobin 34.1 pg (26-34); Mean Corpuscular Volume 107.3 fl (80-100); Monocytes Absolute Auto 0.8 K/mm3 (0.1-0.6); Monocytes Percent Auto 7.5 % (2.6-8.5); Neutrophils Absolute Auto 8.6 K/mm3 (1.3-6.7); Neutrophils Percent Auto 80.3 % (45.5-73.1); Platelet Count Result 174 k/mm3 (150-375); Red Blood Count 3.69 M/mm3 (4.2-5.4); Red Cell Distribution Width 15.1 % (11.5-14.5); White Blood Count 10.7 K/mm3 (4.5-10.0)
[2023-01-04 16:46] LABS: Alanine Aminotransferase 37 U/L (6-35); Albumin Level 4.2 g/dL (3.5-5.1); Alkaline Phosphatase 52 U/L (38-126); Anion Gap 5 mmol/L (8-16); Aspartate Amino Transferase 36 U/L (14-36); Bilirubin,Total 0.6 mg/dL (0.2-1.3); Blood Urea Nitrogen 22 mg/dL (7-17); Calcium 9.3 mg/dL (8.4-10.2); Carbon Dioxide 27 mmol/L (22-30); Chloride 105 mmol/L (98-107); Estimated Glomerular Filt Rate 52; Glucose 128 mg/dL (65-110); Potassium 4.3 mmol/L (3.4-5.0); Sodium 137 mmol/L (137-145)
[2023-01-04 16:59] LABS: Carcinoembryonic Antigen 2.5 ng/mL (0.0-3.0)
== END 2023-01-04 14:12 | disposition home or self-care (01) ==
PROVIDERS: PCP Family Medicine; Visit Provider Internal Medicine Hematology & Oncology
DX: C18.2 Malignant neoplasm of ascending colon (principal)
CPT/HCPCS: 36415; 80053; 82378; 85025

== ENCOUNTER 2023-04-08 09:16 | Emergency (ER) | payer MEDICARE, SELFPAY ==
[2023-04-08 09:30] VITALS: BP 150/78; PULSE 72; RESP 16; TEMP 36.4; O2SAT 98
--- NOTE | 2023-04-08 09:36 | ED.EXTPRO ---
HPI - Extremity Problem General Chief complaint: Extremity Problem,Nontraumatic Stated complaint: left leg is swollen Time Seen by Provider: 04/08/23 09:30 Source: patient Mode of arrival: ambulatory Limitations: no limitations History of Present Illness HPI Narrative: Krystle is a 87-year-old female patient presenting to clinic today with complaints of left leg swelling x1 week. The left leg appears to be twice the size of the right leg. States she does have a history congestive heart failure. Does take Plavix daily as prescribed. Is concerned about a blood clot in the left leg. Has pain into her knee all the way down into her foot. Denies any injury to the left leg. History of neuropathy in the left lower extremity. Denies any open wounds. Denies any chest pain. Related Data Home Medications Medication Instructions Recorded Confirmed aspirin 81 mg tablet,delayed 81 mg PO DAILY 03/26/19 04/08/23 release (Adult Low Dose Aspirin) clopidogrel 75 mg tablet 75 mg PO DAILY 03/26/19 04/08/23 cranberry 500 mg capsule 1,000 mg PO DAILY 03/26/19 04/08/23 diclofenac sodium 1 % topical gel 2 gm topical QID 03/26/19 04/08/23 (Voltaren) isosorbide mononitrate 30 mg 30 mg PO DAILY 03/26/19 04/08/23 tablet,extended release 24 hr multivitamin 1 tablet PO DAILY 03/26/19 04/08/23 nitroglycerin 0.4 mg sublingual 0.4 mg sublingual Q5M PRN Chest 03/26/19 04/08/23 tablet (Nitrostat) Pain calcium carbonate 600 mg calcium 600 mg PO DAILY 06/20/19 04/08/23 (1,500 mg) tablet (Calcium) spironolactone 25 mg tablet 6.25 mg PO DAILY 06/20/19 04/08/23 vitamin B complex (B 1 tablet PO DAILY 06/20/19 04/08/23 Complex-Vitamin B12 tablet) carvedilol 25 mg tablet 12.5 mg PO Q12H 01/27/20 04/08/23 acetaminophen 500 mg tablet 650 mg PO Q6H PRN Pain (Scale 11/02/20 04/08/23 Score 1-3) lactobacillus combination no.9 4 4,000 mmu cells PO DAILY 07/08/21 04/08/23 billion cell capsule (Adult 50 Plus Probiotic) peg 400-propylene glycol 0.4 %-0.3 1 drp EACH EYE DAILY PRN Dry Eyes 07/08/21 04/08/23 % eye drops (Systane Ultra) psyllium husk 0.4 gram capsule 0.4 g PO DAILY 07/08/21 04/08/23 (Metamucil) bimatoprost 0.01 % eye drops 1 drp EACH EYE DAILY 08/09/21 04/08/23 furosemide 20 mg tablet 20 mg PO QAM 08/09/21 04/08/23 latanoprost 0.005 % eye drops 1 drp EACH EYE QPM 08/09/21 04/08/23 loteprednol etabonate 0.5 % eye 1 drp EACH EYE BID 10/20/21 04/08/23 drops,suspension timolol 0.5 % eye drops 1 drp RIGHT EYE DAILY 10/20/21 04/08/23 tacrolimus 0.1 % topical ointment 1 applic topical .PRN 02/01/22 04/08/23 alprazolam 0.25 mg tablet 0.25 mg PO DAILY PRN Anxiety 08/08/22 04/08/23 clobetasol 0.05 % topical cream 1 applic topical DAILY PRN Rash 08/08/22 04/08/23 prednisone 2.5 mg tablet 2.5 mg PO DAILY 08/08/22 04/08/23 Allergies Allergy/AdvReac Type Severity Reaction Status Date / Time hydroxychloroquine Allergy Mild Rash Verified 03/06/23 10:38 clindamycin AdvReac Intermediate cDiff Verified 03/06/23 10:38 duloxetine AdvReac Mild Diarrhea Verified 03/06/23 10:38 Review of Systems Review of Systems: Pertinent positives per HPI. Patient denies any fever, chills, rash, headache, visual changes, dizziness, cough, runny nose, sore throat, shortness of breath, chest pain, palpitations, nausea, vomiting, diarrhea, constipation, abdominal pain, or any urinary issues. [facility] Past Medical History Medical History Anxiety Bullous pemphigoid CAD in [place] artery CHF (congestive heart failure) Chronic low back pain without sciatica Dyslipidemia, goal LDL below 100 Eczema Essential (primary) hypertension Generalized osteoarthritis of multiple sites History of Clostridioides difficile colitis 2018 History of colon cancer History of recurrent deep vein thrombosis (DVT) 2014 - left LE 2019 - left LE Hx of blood clots Hypothyroidism (acquired) Insomnia Neuropathy of lower extremity
== END 2023-04-08 09:45 | disposition short-term general hospital (02) ==
PROVIDERS: Emergency Provider Nurse Practitioner Family; PCP Family Medicine
DX: R60.9 Edema, unspecified (principal); M79.662 Pain in left lower leg; I25.10 Atherosclerotic heart disease of native coronary artery without angina pectoris; I50.9 Heart failure, unspecified; E78.5 Hyperlipidemia, unspecified; I11.0 Hypertensive heart disease with heart failure; E03.9 Hypothyroidism, unspecified
CPT/HCPCS: 99212; G0463

== ENCOUNTER 2023-04-08 10:01 | Emergency (ER) | payer MEDICARE, SELFPAY ==
[2023-04-08] VITALS (7 sets, daily range): BP systolic 115–149; BP diastolic 51–66; PULSE 59–78; RESP 14–22; TEMP 36.5; O2SAT 95–96
--- NOTE | ~2023-04-08 | XR_ITS ---
EXAMINATION: XR chest 2V DATE: 04/08/2023 10:55 INDICATION: Extremity swelling. Congestive heart failure. TECHNIQUE: Frontal and lateral views of the chest were obtained. COMPARISON: Chest 2 views 03/27/2022 FINDINGS: There is mild atelectasis at the lung bases. No pleural effusion or pneumothorax. Cardiomeg aliza is noted. There are old healed right rib fractures. Median sternotomy wires are noted. There are old healed fractures of the clavicles. IMPRESSION: 1. Mild atelectasis at the lung bases. 2. Cardiomegaly. Reviewed, dictated and finalized at location A. S ACCOUNT MANAGER
--- NOTE | ~2023-04-08 | US_ITS ---
EXAMINATION: US venous doppler LE DATE: 04/08/2023 14:50 INDICATION: BLE pain and swelling, L>R . TECHNIQUE: Grayscale images without and with compression and Doppler images of the bilateral lower ex tremity veins were obtained. COMPARISON: US venous lower extremity left 07/27/2018 FINDINGS: The right common femoral vein, profunda (deep) femoral vein, femoral vein, popliteal vein, peroneal v ein, posterior tibial veins, and greater saphenous vein are patent. The left common femoral vein, profunda (deep) femoral vein, femoral vein, popliteal vein, peroneal v ein, posterior tibial veins, and greater saphenous vein are patent. IMPRESSION: Patent bilateral lower extremity veins. No evidence of deep venous thrombosis. Reviewed, dictated and finalized at location K. DING ENERGY CONSULTANT
--- NOTE | 2023-04-08 10:04 | ECG_ITS ---
Measurements Intervals [place] Rate: 59 P: 38 [place]: 207 QRS: -7 QRSD: 101 T: 97 QT: 444 QTc: 442 Interpretive Statements SINUS BRADYCARDIA WITH FREQUENT SUPRAVENTRICULAR PREMATURE COMPLEXES MODERATE T-WAVE ABNORMALITY, CONSIDER LATERAL ISCHEMIA [-0.1+ mV T WAVE IN I/aVL/V5/V6] COMPARED TO ECG 11/22/2018 02:45:31 SINUS BRADYCARDIA NOW PRESENT Electronically Signed On 04-09-2023 14:32:16 SHOP MANAGER by Inga Chu M.D.
[2023-04-08 10:29] LABS: Basophils Percent Auto 0.4 % (0.2-1.2); Eosinophils Absolute Auto 0.1 K/mm3 (0-0.3); Eosinophils Percent Auto 1.1 % (0-4.4); Hematocrit 39.3 % (37.0-47.0); Hemoglobin 12.2 g/dL (12.0-15.0); Immature Granulocyte Absolute 0.03 K/mm3 (0.00-0.031); Immature Granulocyte Percent A 0.3 % (0-0.5); Lymphocytes Percent Auto 10.4 % (18.3-44.2); Mean Corpuscular Hemoglobin 32.7 pg (26-34); Mean Corpuscular Volume 105.4 fl (80-100); Mean Platelet Volume 12.2 fl (7.4-10.4); Monocytes Absolute Auto 0.7 K/mm3 (0.1-0.6); Monocytes Percent Auto 6.8 % (2.6-8.5); Neutrophils Absolute Auto 7.7 K/mm3 (1.3-6.7); Platelet Count Result 163 k/mm3 (150-375); Red Blood Count 3.73 M/mm3 (4.2-5.4); Red Cell Distribution Width 14.7 % (11.5-14.5); White Blood Count 9.6 K/mm3 (4.5-10.0)
[2023-04-08 10:39] LABS: Alanine Aminotransferase 23 U/L (6-35); Alkaline Phosphatase 74 U/L (38-126); Anion Gap 8 mmol/L (8-16); Aspartate Amino Transferase 31 U/L (14-36); Bilirubin,Total 0.6 mg/dL (0.2-1.3); Blood Urea Nitrogen 22 mg/dL (7-17); Calcium 9.8 mg/dL (8.4-10.2); Carbon Dioxide 27 mmol/L (22-30); Chloride 106 mmol/L (98-107); Estimated CRCL calculation 38 ml/min; Estimated Glomerular Filt Rate 59; Glucose 122 mg/dL (65-110); Sodium 141 mmol/L (137-145)
[2023-04-08 10:41] LABS: Prothrombin Time 13.7 Seconds (11.1-14.7)
[2023-04-08 10:42] LABS: Partial Thromboplastin Time 25.7 SECONDS (22.3-36.8)
[2023-04-08 10:50] LABS: NT Pro B Type Natriuretic Pept 2830 pg/mL (19.9-100); Troponin I 0.015 ng/mL (0.000-0.034)
--- NOTE | 2023-04-08 12:03 | ED.EXTPRO ---
HPI - Extremity Problem General Chief complaint: Extremity Problem,Nontraumatic <Swetha Muñiz PA-C - Last Filed: 04/08/23 18:12> Stated complaint: swollen legs <Swetha Muñiz PA-C - Last Filed: 04/08/23 18:12> Time Seen by Provider: 04/08/23 11:39 <Swetha Muñiz PA-C - Last Filed: 04/08/23 18:12> History of Present Illness HPI Narrative: 87 y/o F with a hx of CABG, s/p stent placement, CHF, hypertension, dyslipidemia, CHF reports for evaluation for BLE for 1 week. Pt states she has progressively haven worsening BLE for the past week, worse in the left leg. She states she is concerned for CHF and a DVT. She had a DVT many years ago but is not currently anticoagulated. she denies chest pain, shortness of breath, cough or congestion, fever, lower abdominal pain or edema, dysuria or hematuria, fever or rash. <Swetha Muñiz PA-C - Last Filed: 04/08/23 18:12> Related Data Home medications: Home Medications Medication Instructions Recorded Confirmed aspirin 81 mg tablet,delayed 81 mg PO DAILY 03/26/19 04/08/23 release (Adult Low Dose Aspirin) clopidogrel 75 mg tablet 75 mg PO DAILY 03/26/19 04/08/23 cranberry 500 mg capsule 1,000 mg PO DAILY 03/26/19 04/08/23 diclofenac sodium 1 % topical gel 2 gm topical QID 03/26/19 04/08/23 (Voltaren) isosorbide mononitrate 30 mg 30 mg PO DAILY 03/26/19 04/08/23 tablet,extended release 24 hr multivitamin 1 tablet PO DAILY 03/26/19 04/08/23 nitroglycerin 0.4 mg sublingual 0.4 mg sublingual Q5M PRN Chest 03/26/19 04/08/23 tablet (Nitrostat) Pain calcium carbonate 600 mg calcium 600 mg PO DAILY 06/20/19 04/08/23 (1,500 mg) tablet (Calcium) spironolactone 25 mg tablet 6.25 mg PO DAILY 06/20/19 04/08/23 vitamin B complex (B 1 tablet PO DAILY 06/20/19 04/08/23 Complex-Vitamin B12 tablet) carvedilol 25 mg tablet 12.5 mg PO Q12H 01/27/20 04/08/23 lactobacillus combination no.9 4 4,000 mmu cells PO DAILY 07/08/21 04/08/23 billion cell capsule (Adult 50 Plus Probiotic) peg 400-propylene glycol 0.4 %-0.3 1 drp EACH EYE DAILY PRN Dry Eyes 07/08/21 04/08/23 % eye drops (Systane Ultra) psyllium husk 0.4 gram capsule 0.4 g PO DAILY 07/08/21 04/08/23 (Metamucil) bimatoprost 0.01 % eye drops 1 drp EACH EYE DAILY 08/09/21 04/08/23 furosemide 20 mg tablet 20 mg PO QAM 08/09/21 04/08/23 latanoprost 0.005 % eye drops 1 drp EACH EYE QPM 08/09/21 04/08/23 loteprednol etabonate 0.5 % eye 1 drp EACH EYE BID 10/20/21 04/08/23 drops,suspension timolol 0.5 % eye drops 1 drp RIGHT EYE DAILY 10/20/21 04/08/23 tacrolimus 0.1 % topical ointment 1 applic topical .PRN 02/01/22 04/08/23 alprazolam 0.25 mg tablet 0.25 mg PO DAILY PRN Anxiety 08/08/22 04/08/23 clobetasol 0.05 % topical cream 1 applic topical DAILY PRN Rash 08/08/22 04/08/23 prednisone 2.5 mg tablet 7.5 mg PO EVERY OTHER DAY 08/08/22 04/08/23 doxycycline hyclate 100 mg tablet 100 mg PO DAILY 04/08/23 04/08/23 <Swetha Muñiz PA-C - Last Filed: 04/08/23 18:12> Allergies/Adverse reactions: Allergies Allergy/AdvReac Type Severity Reaction Status Date / Time hydroxychloroquine Allergy Mild Rash Verified 04/08/23 10:18 clindamycin AdvReac Intermediate cDiff Verified 04/08/23 10:18 duloxetine AdvReac Mild Diarrhea Verified 04/08/23 10:18 <Swetha Muñiz PA-C - Last Filed: 04/08/23 18:12> Review of Systems Review of Systems: CONSTITUTIONAL: Denies fever, chills, or sweats. EYES: Denies visual changes, redness, or discharge. ENT: Denies rhinorrhea, congestion, sore throat, or otalgia. CARDIOVASCULAR: See HPI RESPIRATORY: Denies cough or dyspnea. GASTROINTESTINAL: Denies abdominal pain, nausea, vomiting, or diarrhea. GENITOURINARY: Denies dysuria or hematuria. SKIN: Denies rash or itching. MUSCULOSKELETAL: Denies back pain, joint pain, or myalgia. NEUROLOGIC: Denies headache, numbness, or weakness. PSYCHIATRIC: Denies anxiety or depression. <Swetha Muñiz PA-C - [place]
[2023-04-08 12:16] LABS: Magnesium 1.9 mg/dL (1.6-2.3)
[2023-04-08 12:26] LABS: NT Pro B Type Natriuretic Pept 2810 pg/mL (19.9-100)
[2023-04-08] MEDS: FUROSEMIDE INJ 40 MG/4 ML VIAL IV PUSH (13:06)
== END 2023-04-08 16:52 | disposition home or self-care (01) ==
PROVIDERS: Emergency Medicine; Emergency Provider Physician Assistant; PCP Family Medicine
DX: R60.0 Localized edema (principal); I11.0 Hypertensive heart disease with heart failure; I50.9 Heart failure, unspecified; E03.9 Hypothyroidism, unspecified; M35.3 Polymyalgia rheumatica; G62.9 Polyneuropathy, unspecified; E78.5 Hyperlipidemia, unspecified; I25.10 Atherosclerotic heart disease of native coronary artery without angina pectoris; L12.0 Bullous pemphigoid; F41.9 Anxiety disorder, unspecified; Z95.5 Presence of coronary angioplasty implant and graft; Z90.49 Acquired absence of other specified parts of digestive tract; Z85.038 Personal history of other malignant neoplasm of large intestine; Z79.82 Long term (current) use of aspirin; Z79.02 Long term (current) use of antithrombotics/antiplatelets; Z79.621 Long term (current) use of calcineurin inhibitor
CPT/HCPCS: 36415; 71046; 80053; 83735; 83880; 84484; 85025; 85610; 85730; 93005; 93970; 96374; 99284; J1940

== ENCOUNTER 2023-05-10 10:10 | Outpatient (CLI) | payer MEDICARE, SELFPAY ==
[2023-05-10 14:00] LABS: Anion Gap 8 mmol/L (8-16); Blood Urea Nitrogen 31 mg/dL (7-17); Calcium 9.8 mg/dL (8.4-10.2); Carbon Dioxide 27 mmol/L (22-30); Chloride 104 mmol/L (98-107); Estimated Glomerular Filt Rate 59; Glucose 113 mg/dL (65-110); Potassium 4.7 mmol/L (3.4-5.0); Sodium 139 mmol/L (137-145)
== END 2023-05-10 10:11 | disposition home or self-care (01) ==
LOC: ANHGOSHLAB 10:13
PROVIDERS: PCP Family Medicine; Visit Provider Specialist
DX: I50.9 Heart failure, unspecified (principal)
CPT/HCPCS: 36415; 80048

== ENCOUNTER → 2023-05-19 14:48 | Outpatient (CLI) | payer MEDICARE, SELFPAY ==
--- NOTE | ~2023-05-19 | XR_ITS ---
EXAMINATION: XR foot LT min 3V DATE: 05/19/2023 15:06 INDICATION: Lateral left foot pain. TECHNIQUE: 4 views of left foot were obtained. COMPARISON: None. FINDINGS: There is mild hallux valgus. No fracture. There is mild osteoarthritis of first metatarsoph alangeal joint and some of the interphalangeal joints and midfoot joints. There are enthesophytes at the posterior and plantar aspects of calcaneal tuberosity. IMPRESSION: 1. Mild polyarticular osteoarthritis. 2. Mild hallux valgus. Reviewed, dictated and finalized at location E. PATIAL APPLICATIONS DEVELOPER
== END ==
PROVIDERS: PCP Nurse Practitioner Family; Visit Provider Nurse Practitioner Family
DX: M15.9 Polyosteoarthritis, unspecified (principal); M20.12 Hallux valgus (acquired), left foot; M79.672 Pain in left foot
CPT/HCPCS: 73630

== ENCOUNTER 2023-06-16 09:23 | Observation (INO) | payer MEDICARE, SELFPAY ==
[2023-06-16] VITALS (19 sets, daily range): BP systolic 99–157; BP diastolic 49–78; PULSE 58–77; RESP 12–27; TEMP 36.1; O2SAT 95–100; BMI 24.7
--- NOTE | ~2023-06-16 | CT_ITS ---
EXAMINATION: CTA chest PE abdomen pel DATE: 06/16/2023 10:35 INDICATION: Left-sided chest pain TECHNIQUE: Computed tomography angiography (CTA) of the chest was performed with 100 mL Omnipaque-350 intravenous contrast timed to evaluate the pulmonary arteries. Subsequent postcontrast images of the abdomen and pelvis are obtained. Coronal maximum intensity projection 3D-reconstructions were create d by the technologist. The dose-length product (DLP) was 877.50 mGy-cm. Automated exposure control an d iterative reconstruction technique were employed. COMPARISON: 06/14/2021 FINDINGS: CTA CHEST: The pulmonary arteries are well-opacified. No pulmonary embolism is identified. Cardiomega ly is noted. There are no pathologically enlarged thoracic lymph nodes. There is mild dependent atele ctasis. No pleural effusion or pneumothorax. There are multiple old bilateral rib fractures. An old h ealed right clavicle fracture is also noted. There is an age-indeterminate mild compression fracture of T8. ABDOMEN/PELVIS CT: Punctate calcifications in an otherwise normal spleen likely represent healed gran ulomatous disease. The liver, pancreas, and adrenal glands are unremarkable. Stones are present in th e nondistended gallbladder. Hypoattenuating lesions in the kidneys, measuring up to 3 mm on the right , are too small to characterize but likely represent cysts. There is a 10 mm nonobstructing stone of the left kidney lower pole. There is calcified atherosclerosis of the aorta and many of the other art eries. No pathologically enlarged abdominal or pelvic lymph nodes are identified. Colonic diverticulo sis is present without evidence of diverticulitis. There is a [place] midline ventral hernia contai hugo fat. There is severe lumbar spondylosis. IMPRESSION: 1. No pulmonary embolus identified. 2. No acute findings of the abdomen and pelvis. 3. Cholelithiasis without evidence of cholecystitis. 4. Nonobstructing left nephrolithiasis. 5. Cardiomegaly. Reviewed, dictated and finalized at location B. [employer]
--- NOTE | 2023-06-16 09:35 | ECG_ITS ---
Measurements Intervals [place] Rate: 59 P: -10 NE: 221 QRS: -7 QRSD: 106 T: 137 QT: 429 QTc: 428 Interpretive Statements SINUS BRADYCARDIA WITH FIRST DEGREE AV BLOCK ST-T WAVE ABNORMALITY IN LAT/HIGH LAT LEADS- CONSIDER ISCHEMIA BASELINE ARTIFACT- I, II, III, AVR, AVL, AVF, V6 ABNORMAL ECG COMPARED TO ECG 04/08/2023 10:16:03 ST-T WAVE ABNORMALITY NOW PRESENT Electronically Signed On 06-16-2023 10:10:19 LEAD PROGRAMMER ANALYST by Jay Gibson D.O.
--- NOTE | 2023-06-16 10:05 | ED.GENADULT ---
HPI - General Adult General Chief complaint: Abdominal Pain Stated complaint: abdominal pain Time Seen by Provider: 06/16/23 09:39 History of Present Illness HPI narrative: Patient 87-year-old female who presents emerged from with chief complaint of left-sided abdominal pain/chest pain. Patient reports that several days ago started having sharp pain underneath her left breast that radiates to her epigastrium and her back. The patient reports pain worse by inspiration worse by movement the patient states that she has had no diaphoresis reports that time because her daughter she takes deep breath but does not have shortness of breath. The patient reports that she has prior history of bowel resection due to a localized: Neoplasm patient reports she is not on any chemoradiation therapy reports that she has been cancer free since her surgery. Related Data Home Medications Medication Instructions Recorded Confirmed aspirin 81 mg tablet,delayed 81 mg PO DAILY 03/26/19 05/19/23 release (Adult Low Dose Aspirin) clopidogrel 75 mg tablet 75 mg PO DAILY 03/26/19 05/19/23 cranberry 500 mg capsule 1,000 mg PO DAILY 03/26/19 05/19/23 isosorbide mononitrate 30 mg 30 mg PO DAILY 03/26/19 04/08/23 tablet,extended release 24 hr multivitamin 1 tablet PO DAILY 03/26/19 05/19/23 nitroglycerin 0.4 mg sublingual 0.4 mg sublingual Q5M PRN Chest 03/26/19 05/19/23 tablet (Nitrostat) Pain calcium carbonate 600 mg calcium 600 mg PO DAILY 06/20/19 05/19/23 (1,500 mg) tablet (Calcium) spironolactone 25 mg tablet 6.25 mg PO DAILY 06/20/19 05/19/23 vitamin B complex (B 1 tablet PO DAILY 06/20/19 05/19/23 Complex-Vitamin B12 tablet) carvedilol 25 mg tablet 12.5 mg PO Q12H 01/27/20 05/19/23 lactobacillus combination no.9 4 4,000 mmu cells PO DAILY 07/08/21 05/19/23 billion cell capsule (Adult 50 Plus Probiotic) peg 400-propylene glycol 0.4 %-0.3 1 drp EACH EYE DAILY PRN Dry Eyes 07/08/21 05/19/23 % eye drops (Systane Ultra) psyllium husk 0.4 gram capsule 0.4 g PO DAILY 07/08/21 05/19/23 (Metamucil) bimatoprost 0.01 % eye drops 1 drp EACH EYE DAILY 08/09/21 04/08/23 latanoprost 0.005 % eye drops 1 drp EACH EYE QPM 08/09/21 05/19/23 loteprednol etabonate 0.5 % eye 1 drp EACH EYE BID 10/20/21 04/08/23 drops,suspension alprazolam 0.25 mg tablet 0.25 mg PO DAILY PRN Anxiety 08/08/22 05/19/23 clobetasol 0.05 % topical cream 1 applic topical DAILY PRN Rash 08/08/22 05/19/23 prednisone 2.5 mg tablet 7.5 mg PO EVERY OTHER DAY 08/08/22 05/19/23 doxycycline hyclate 100 mg tablet 100 mg PO DAILY 04/08/23 05/19/23 furosemide 20 mg tablet 40 mg PO QAM 05/19/23 05/19/23 Allergies Allergy/AdvReac Type Severity Reaction Status Date / Time hydroxychloroquine Allergy Mild Rash Verified 06/16/23 09:24 clindamycin AdvReac Intermediate cDiff Verified 06/16/23 09:24 duloxetine AdvReac Mild Diarrhea Verified 06/16/23 09:24 Review of Systems Review of Systems: A 10 system review of systems was completed on the patient and is negative except for what is stated in the HPI. Nursing and ancillary documentation was reviewed. [facility] Past Medical History Medical History Anxiety Bullous pemphigoid CAD in [place] artery CHF (congestive heart failure) Chronic low back pain without sciatica Dyslipidemia, goal LDL below 100 Eczema Essential (primary) hypertension Generalized osteoarthritis of multiple sites History of Clostridioides difficile colitis 2018 History of colon cancer History of recurrent deep vein thrombosis (DVT) 2014 - left LE 2019 - left LE Hx of blood clots Hypothyroidism (acquired) Insomnia Neuropathy of lower extremity Polymyalgia rheumatica (~2019) Surgical History Surgical History History of back surgery 1990 for herniated disc L spine History of coronary artery stent placement 1999 History of eyelid jyoti
[2023-06-16 10:16] LABS: Basophils Absolute Auto 0.1 K/mm3 (0.0-0.1); Basophils Percent Auto 0.5 % (0.2-1.2); Eosinophils Absolute Auto 0.2 K/mm3 (0-0.3); Eosinophils Percent Auto 2.2 % (0-4.4); Hematocrit 37.6 % (37.0-47.0); Immature Granulocyte Absolute 0.02 K/mm3 (0.00-0.031); Immature Granulocyte Percent A 0.2 % (0-0.5); Lymphocytes Absolute Auto 1.65 K/mm3 (0.9-3.2); Lymphocytes Percent Auto 17.2 % (18.3-44.2); Mean Corpuscular HGB Conc 31.9 g/dl (32-36); Mean Corpuscular Hemoglobin 32.8 pg (26-34); Mean Corpuscular Volume 102.7 fl (80-100); Mean Platelet Volume 11.9 fl (7.4-10.4); Monocytes Absolute Auto 1.5 K/mm3 (0.1-0.6); Monocytes Percent Auto 15.1 % (2.6-8.5); Neutrophils Absolute Auto 6.2 K/mm3 (1.3-6.7); Neutrophils Percent Auto 64.8 % (45.5-73.1); Platelet Count Result 166 k/mm3 (150-375); Red Blood Count 3.66 M/mm3 (4.2-5.4); Red Cell Distribution Width 15.4 % (11.5-14.5); White Blood Count 9.6 K/mm3 (4.5-10.0)
[2023-06-16 10:23] LABS: Alanine Aminotransferase 23 U/L (6-35); Albumin Level 4.1 g/dL (3.5-5.1); Alkaline Phosphatase 65 U/L (38-126); Anion Gap 4 mmol/L (8-16); Aspartate Amino Transferase 33 U/L (14-36); Bilirubin,Total 0.8 mg/dL (0.2-1.3); Blood Urea Nitrogen 22 mg/dL (7-17); Calcium 9.6 mg/dL (8.4-10.2); Carbon Dioxide 27 mmol/L (22-30); Chloride 106 mmol/L (98-107); Estimated Glomerular Filt Rate > 60; Glucose 116 mg/dL (65-110); Lipase 156 U/L (23-300); Potassium 4.3 mmol/L (3.4-5.0); Sodium 137 mmol/L (137-145)
[2023-06-16 10:39] LABS: NT Pro B Type Natriuretic Pept 2630 pg/mL (19.9-100); Partial Thromboplastin Time 26.2 SECONDS (22.3-36.8); Troponin I 0.052 ng/mL (0.000-0.034)
[2023-06-16 10:46] LABS: Appearance Urine Clear (Clear); Bacteria Urine None Seen /hpf; Bilirubin Urine Negative (Negative); Blood Urine Negative (Negative); Color Urine Yellow (Yellow); Glucose Urine UA Negative (Negative); Ketones Urine Negative (Negative); Leukocyte Esterase Ur 1+ LEU/UL (Negative); Need Manual Microscopic Reviewed; Nitrate Urine Negative (Negative); Non Pathogenic Casts 0-2; Protein Urine Negative (Negative); RBC Urine 0-2 /hpf (0-2); Specific Grav Ur 1.016 (1.001-1.035); Squamous Epithelial Cell Urine None seen /hpf (Few); Urobilinogen Urine 0.2 mg/dL (<2.0); WBC Urine 0-5 /hpf
[2023-06-16 10:47] LABS: Add Urine Microscopic? YES
[2023-06-16] MEDS: ASPIRIN 81 MG CHEWABLE TABLET 324 MG PO (11:43)
--- NOTE | 2023-06-16 11:45 | PC.NURSE ---
pt stated they already took one 81mg aspirin this morning prior to arrival. pt received 3 more 81mg chewable aspirin to completed the dose. one 81mg aspirin was returned to [facility]
--- NOTE | 2023-06-16 12:42 | ECG_ITS ---
Measurements Intervals [place] Rate: 59 P: 3 NM: 229 QRS: -21 QRSD: 96 T: 152 QT: 458 QTc: 455 Interpretive Statements SINUS BRADYCARDIA WITH FIRST DEGREE AV BLOCK ATRIAL PREMATURE COMPLEX DELAYED PRECORDIAL R/S TRANSITION ST-T WAVE ABNORMALITY IN LAT/HIGH LAT LEADS- CONSIDER ISCHEMIA BASELINE ARTIFACT- I, II, III, AVR, AVL, AVF, V2 ABNORMAL ECG COMPARED TO ECG 06/16/2023 09:48:06 NO SIGNIFICANT CHANGES Electronically Signed On 06-16-2023 12:51:54 PTA by Jay Gibson D.O.
[2023-06-16 13:15] LABS: Troponin I 0.054 ng/mL (0.000-0.034)
--- NOTE | 2023-06-16 14:06 | PM.IMHP ---
H&P: HPI History of Present Illness Date/Time: 06/16/23 14:06 Chief Complaint: Left upper quadrant/abdominal pain Narrative: 87 year old female with significant medical history of hypertension, coronary artery disease s/p bypass graft (2009), diastolic heart failure with reduced ejection fraction (EF 47%), dyslipidemia, hypothyroidism, recurrent lower extremity DVT, and adenocarcinoma of the ascending colon s/p right colectomy (06/07/2017). Patient arrives to the hospital from home for left upper quadrant/chest pain. Patient gave the following history with daughter in room, daughter gave further information with patient permission. Patient describes the pain as an intermittent sharp, stabbing pain with radiation to the back. She states the pain started on Tuesday 06/13 and has continued to progress. The pain is worse with inspiration and twisting movements. She took aspirin with minimal relief of symptoms. She denies recent shortness of breath, nausea, vomiting, changes in bowel/bladder, cough and sick contacts. She has an extensive cardiac history and follows Dr. Barboza. History of LAD revascularization followed by restenosis requiring RICE placed to LAD. RICE graft failed and another LAD intervention was done. Angiogram in 2008 demonstrates revascularization. She was recently seen by her apiculturist, who increased her furosemide due to increased lower extremity edema. Her most recent echo was on 09/2019 which revealed impaired diastolic dysfunction grade I with an ejection fraction of 47%, mild mitral valve regurgitation and mild tricuspid regurgitation. EKG in ED is essentially unchanged from previous EKG in 03/2023. Her BNP and troponin levels were elevated in the ED. Will continue to trend troponin until downtrending. Will obtain an echo to reevaluate heart function. Patient found to have chronic macrocytosis without associated anemia. She is on B12 supplementation. Patient most recent TSH 4.94 in 08/2022. Will check TSH level and continue home levothyroxine. Patient will be admitted to IMU. Her home medications will be reviewed and resumed as appropriate. VS on arrival: AF, HR 66, RR 18, SpO2 100%, BP 136/64 ED workup: Elevated troponin 0.054 and BNP 2630. Labs other unremarkable. CTA chest revealed no pulmonary embolus and cardiomegaly. EKG sinus bradycardia with first degree AV block and T wave depression in lateral leads. T wave depression noted in previous EKG from 03/2023. Received aspirin in the ER. Review of Systems Review of Systems: All systems reviewed & are unremarkable except as noted in HPI and below PMFSH Past Medical History Medical History Anxiety Bullous pemphigoid CAD in [place] artery CHF (congestive heart failure) Chronic low back pain without sciatica Dyslipidemia, goal LDL below 100 Eczema Essential (primary) hypertension Generalized osteoarthritis of multiple sites History of Clostridioides difficile colitis 2018 History of colon cancer History of recurrent deep vein thrombosis (DVT) 2014 - left LE 2019 - left LE Hx of blood clots Hypothyroidism (acquired) Insomnia Neuropathy of lower extremity Polymyalgia rheumatica (~2018) Surgical History Surgical History History of back surgery 1990 for herniated disc L spine History of coronary artery stent placement 1999 History of eyelid surgery 03/2013 - b/l History of right hemicolectomy 05/2017 Hx of cataract extraction left - 11/2012 right - 12/2012 Family History Family History Mother Family history of cardiovascular disease Father Cerebrovascular accident Social History Social History Social History: Caffeine-coffee daily Smoking status: Never smoker Second hand tobacco smoke exposure: No Alc
--- NOTE | 2023-06-16 17:23 | PC.NURSE ---
Pt admitted to room 204-1. The pt was escorted to the unit on a stretcher. Assisted to the bed per staff. Denies pain no distress noted. Fall precautions initiated. Orientation given to the unit, call light, et unit normals. Call light remains in reach
[2023-06-16] MEDS: ACETAMINOPHEN 325 MG TABLET 650 MG PO (22:22)
[2023-06-16] MEDS: ATORVASTATIN 10 MG TABLET PO (23:59)
[2023-06-16] MEDS: carvediloL 12.5 MG TABLET PO (23:59)
[2023-06-17] VITALS (18 sets, daily range): BP systolic 113–154; BP diastolic 49–69; PULSE 60–91; RESP 16–20; TEMP 35.8–36.4; O2SAT 94–98
--- NOTE | 2023-06-17 | ECHO_ITS ---
Patient Info Name: Krystle Avila Age: 87 years : 1935 Gender: Female Ht: 67 in Wt: 158 lbs BSA: 1.85 m2 HR: 78 bpm BP: 154 / 65 mmHg Heart Rhythm: Sinus Rhythm Technical Quality: Fair Exam Date: 06/17/2023 9:18 AM Exam Location: Echo Lab Exam Room: [facility] Patient Status: Outpatient Admit Date: 06/16/2023 Staff Ordering Physician: Patricia Howe PA-C Pilot Boat Captain: Brittaney Schilling RDCS Attending Provider: Ricardo Flood MD Referring Physician: Shyam PÉREZ; Exam Type: CA echo dop color flow w con Study Info Indications - ELEVATED TYROPONINS CAD HTN S/P CABG CHEST PAIN Complete two-dimensional, color flow and Doppler transthoracic echocardiogram is performed with contrast to opacify the left ventricle and to improve the deliniation of the left ventricle endocardial borders. Contrast/Agitated Saline Contrast/Ag. Saline: Definity Amount: 2.00 ml Administered By: Brittaney Schilling [facility] Existing IV Access: Yes IV Access Condition: patent with no signs of infiltration Summary 1. Left ventricular chamber dimension is moderately enlarged. 2. Left ventricular systolic function is severely reduced, estimated at 20-25%. 3. The left ventricular diastolic function is grade I diastolic dysfunction. 4. Right ventricular systolic function is normal. 5. Left atrial chamber dimension is severely enlarged. 6. Right atrial chamber dimension is mildly enlarged. 7. There is mild aortic valve regurgitation. 8. There is moderate to severe mitral valve regurgitation. 9. There is mild tricuspid valve regurgitation. Left Ventricle Left ventricular chamber dimension is moderately enlarged. Left ventricular systolic function is severely reduced, estimated at 20-25%. There is no increased left ventricular wall thickness. The left ventricular diastolic function is grade I diastolic dysfunction. Right Ventricle Right ventricular chamber dimension is normal. Right ventricular systolic function is normal. Left Atria Left atrial chamber dimension is severely enlarged. Right Atria Right atrial chamber dimension is mildly enlarged. Atrial Septum Intact interatrial septum visualized by color flow imaging. Aortic Valve The aortic valve is trileaflet. There is no aortic valve stenosis. There is mild aortic valve regurgitation. There is mild aortic valve calcification. Pulmonic Valve The pulmonic valve is not well visualized. There is trace pulmonic regurgitation. Mitral Valve There is moderate to severe mitral valve regurgitation. The mitral valve annulus is mildly calcified. Tricuspid Valve There is mild tricuspid valve regurgitation. Pericardium/Pleural There is no pericardial effusion. Inferior Vena Cava Normal inferior vena cava with >50% collapse upon inspiration consistent with normal right atrial pressure, 3 mmHg. Aorta The aortic root size at the sinus of Valsalva is normal. Left Ventricular Outflow Tract Name Value Normal LVOT 2D LVOT Diameter 1.96 cm LVOT Doppler LVOT Peak Gradient 5 mmHg LVOT Mean Gradient 3 mmHg LVOT VTI 22.97 cm LV
[2023-06-17 04:54] LABS: Hematocrit 36.5 % (37.0-47.0); Hemoglobin 11.5 g/dL (12.0-15.0); Mean Corpuscular HGB Conc 31.5 g/dl (32-36); Mean Corpuscular Hemoglobin 32.6 pg (26-34); Mean Corpuscular Volume 103.4 fl (80-100); Mean Platelet Volume 12.8 fl (7.4-10.4); Platelet Count Result 154 k/mm3 (150-375); Red Blood Count 3.53 M/mm3 (4.2-5.4); Red Cell Distribution Width 15.4 % (11.5-14.5); White Blood Count 8.9 K/mm3 (4.5-10.0)
[2023-06-17 05:12] LABS: Anion Gap 3 mmol/L (8-16); Blood Urea Nitrogen 20 mg/dL (7-17); Calcium 9.4 mg/dL (8.4-10.2); Carbon Dioxide 25 mmol/L (22-30); Chloride 107 mmol/L (98-107); Estimated CRCL calculation 42 ml/min; Estimated Glomerular Filt Rate > 60; Glucose 98 mg/dL (65-110); Sodium 135 mmol/L (137-145)
[2023-06-17] MEDS: LEVOTHYROXINE SODIUM 75 MCG TABLET PO (06:33)
--- NOTE | 2023-06-17 07:14 | PM.IMPN ---
Progress Note: A&P Assessment and Plan (1) Elevated troponin: Code(s): R79.89 - Other specified abnormal findings of blood chemistry Status: Acute Assessment and Plan: Patient presented with left sided chest pain worse with movement and deep inspiration. PE and pancreatitis ruled out, likely musculoskeletal due to pain being reproducible with inspiration and movement. Peak troponin 0.054. EKG unchanged from previous tracing. Echo shows LVEF 20-25%. Per cardiology will optimize heart failure regimen by increasing her spironolactone to 25mg. Continue dual antiplatelet therapy (2) Heart failure with reduced ejection fraction and diastolic dysfunction: Code(s): I50.40 - Unspecified combined systolic (congestive) and diastolic (congestive) heart failure Status: Acute Assessment and Plan: Echo 09/2019: impaired diastolic dysfunction grade I with an ejection fraction of 47%. Appears euvolemic. Echo 06/17/23: LVEF 20-25% Continue home medications of lisinopril, furosemide, and carvedilol Increase spironolactone to 25mg per cardiology recommendations (3) CAD in [place] artery: Code(s): I25.10 - Atherosclerotic heart disease of [place] coronary artery without angina pectoris Status: Acute Assessment and Plan: History of LAD revascularization followed by restenosis requiring RICE placed to LAD. RICE graft failed and another LAD intervention was done. Angiogram in 2008 demonstrates revascularization. Continue home dual therapy with aspirin and clopidogrel Continue home medication of isosorbide Continue home medication of atorvastatin Nitroglycerin PRN for chest pain (4) Essential (primary) hypertension: Code(s): I10 - Essential (primary) hypertension Status: Acute Assessment and Plan: BP reviewed and are stable. Will controlled on home medications Continue home medication of lisinopril and carvedilol (5) Hypothyroidism (acquired): Code(s): E03.9 - Hypothyroidism, unspecified Status: Acute Assessment and Plan: Previous TSH 4.94 on 08/30. TSH ordered Continue home levothyroxine Plan VTE prophylaxis with home dual antiplatelet therapy. Time Spent With Patient Time with patient: 25 - 35 minutes Subjective Date/time seen: 06/17/23 07:14 Interval history: 87 year old female with significant medical history of hypertension, coronary artery disease s/p bypass graft (2009), diastolic heart failure with reduced ejection fraction (EF 47%), dyslipidemia, hypothyroidism, recurrent lower extremity DVT, and adenocarcinoma of the ascending colon s/p right colectomy (06/07/2017). Patient arrives to the hospital from home for left upper quadrant/chest pain. Patient gave the following history with daughter in room, daughter gave further information with patient permission. Patient describes the pain as an intermittent sharp, stabbing pain with radiation to the back. She states the pain started on Tuesday 06/13 and has continued to progress. The pain is worse with inspiration and twisting movements. She took aspirin with minimal relief of symptoms. She denies recent shortness of breath, nausea, vomiting, changes in bowel/bladder, cough and sick contacts. She has an extensive cardiac history and follows Dr. Barboza. History of LAD revascularization followed by restenosis requiring RICE placed to LAD. RICE graft failed and another LAD intervention was done. Angiogram in 2008 demonstrates revascularization. She was recently seen by her chief technician, who increased her furosemide due to increased lower extremity edema. Her most recent echo was on 09/2019 which revealed impaired diastolic dysfunction grade I with an ejection fraction of 47%, mild mitral valve regurgitation and mild tricuspid regurgitation. EKG in ED is essentially unchanged from previous EKG in 03/2023. Her BNP and troponin levels were elevated in the ED. Will continue to trend troponin until
[2023-06-17] MEDS: ASPIRIN 81 MG CHEWABLE TABLET PO (08:29)
[2023-06-17] MEDS: ISOSORBIDE MONONITRATE 30 MG TAB.ER.24H PO (08:29)
[2023-06-17] MEDS: ACIDOPHILUS/BULGARICUS CHEWABLE TABLET 2 TABLET BY MOUTH (08:29)
[2023-06-17] MEDS: POTASSIUM CHLORIDE 20 MEQ ER TABLET PO (08:30)
[2023-06-17] MEDS: CALCIUM CARBONATE (OSCAL) 500 MG TABLET PO (08:35)
[2023-06-17] MEDS: SPIRONOLACTONE 12.5 MG TABLET 6.25 MG PO (08:35)
[2023-06-17] MEDS: GABAPENTIN 300 MG CAPSULE BY MOUTH ×2 (08:37→18:38)
[2023-06-17] MEDS: FUROSEMIDE 40 MG TABLET PO (08:37)
[2023-06-17] MEDS: CLOPIDOGREL BISULFATE 75 MG TABLET PO (08:37)
[2023-06-17] MEDS: lisinopriL 20 MG TABLET PO (08:37)
[2023-06-17] MEDS: MULTIVITAMINS THERAPEUTIC TAB (*BKC) 1 TABLET PO (08:37)
[2023-06-17] MEDS: VITAMIN B COMPLEX CAPSULE 1 CAP PO (08:37)
[2023-06-17] MEDS: DOXYCYCLINE HYCLATE 100 MG TABLET PO (08:38)
[2023-06-17] MEDS: PSYLLIUM POWDER PACKET 1 PACKET BY MOUTH (08:40)
[2023-06-17] MEDS: IPRATROPIUM NASAL SPRAY 0.06% 15 ML BOTTLE 2 SPRAY NASAL (08:45)
[2023-06-17] MEDS: LOTEPREDNOL ETABONATE 0.5% OPH 5 ML BOTTLE 1 DROP EACH EYE ×2 (08:46→18:38)
[2023-06-17] MEDS: PERFLUTREN LIPID MICROSPHERES 1.5 ML VIAL DILUTED TO 10 ML TOTAL VOLUME IV PUSH (10:00)
--- NOTE | 2023-06-17 10:12 | PM.CNCAR ---
Assessment and Plan Assessment and plan (1) Chest pain: Code(s): R07.9 - Chest pain, unspecified Status: Acute Assessment and Plan: Her chest pain is very atypical and is clearly reproducible on examination, consistent with a musculoskeletal etiology. Recommend Tylenol for pain control. Echocardiogram has been ordered, will follow up on results. (2) Elevated troponin: Code(s): R79.89 - Other specified abnormal findings of blood chemistry Status: Acute Assessment and Plan: Minimally elevated and flat. EKGs are unchanged compared to previous ones. This is not consistent with an acute coronary syndrome. Echocardiogram has been ordered, will follow up on the results. (3) Heart failure with reduced ejection fraction and diastolic dysfunction: Code(s): I50.40 - Unspecified combined systolic (congestive) and diastolic (congestive) heart failure Status: Acute Assessment and Plan: Stable. Echo pending. Continue Coreg, Lisinopril, PO Lasix, Spironolactone. (4) Essential (primary) hypertension: Code(s): I10 - Essential (primary) hypertension Status: Acute Assessment and Plan: Continue home antihypertensive regimen. (5) CAD in [place] artery: Code(s): I25.10 - Atherosclerotic heart disease of [place] coronary artery without angina pectoris Status: Acute Assessment and Plan: Continue ASA, Plavix, statin, beta nereyda, Imdur History of Present Illness History of Present Illness Consult date/time: 06/17/23 10:12 Requesting physician: Patricia Howe PA-C Consult reason: Other (Elevated troponin) Reason For Visit: Chest/Abdominal Pain/Elevated Troponin Narrative: We are consulted for elevated troponin. This is an 87 year old female patient of Dr. Barboza'archie who has coronary artery disease and cardiomyopathy. She underwent interventional revascularization of her LAD a long time ago and unfortunately suffered repeated stenoses requiring surgery where she had a RICE to her LAD placed. Despite that, she had failure of her RICE graft and had another LAD intervention done and has been doing okay from a coronary standpoint since then. She has known cardiomyopathy, last echo from 2019 shows LVEF visually estimated at 35% (measured at 47% however). Patient presented to [place] [facility] for chest pain that has been occurring since Monday. Pain is sharp and located underneath her left breast and goes to the left side and to her back. It gets worse when she is trying to get up from laying in bed. EKGs show sinus rhythm with STTW abnormality in the lateral leads. EKGs are unchanged compared to previous. Troponins are mildly elevated at 0.052, 0.054, 0.050. Review of Systems Review of Systems: All systems reviewed & are unremarkable except as noted in HPI and below (HPI) [facility] Past Medical History Medical History Anxiety Bullous pemphigoid CAD in [place] artery CHF (congestive heart failure) Chronic low back pain without sciatica Dyslipidemia, goal LDL below 100 Eczema Essential (primary) hypertension Generalized osteoarthritis of multiple sites History of Clostridioides difficile colitis 2018 History of colon cancer History of recurrent deep vein thrombosis (DVT) 2013 - left LE 2019 - left LE Hx of blood clots Hypothyroidism (acquired) Insomnia Neuropathy of lower extremity Polymyalgia rheumatica (~2018) Surgical History Surgical History History of back surgery 1990 for herniated disc L spine History of coronary artery stent placement 1999 History of eyelid surgery 03/2013 - b/l History of right hemicolectomy 05/2017 Hx of cataract extraction left - 11/2012 right - 12/2012 Family History Family History Mother Family history of cardiovascular disease Father Cerebrovascular accide
--- NOTE | 2023-06-17 10:30 | IVDEFINITY ---
Prior to administration of IV Definity the patient was educated on the risks and benefits of the imaging enhancing agent including potential adverse side effects. The patient verbalized understanding. Allergies were verified. No exclusion criteria were identified and at least one of the following inclusion criteria were met: 1) physician request, 2) patient technically difficult to image (per the [place] [employer]ocardi[employer] guidelines of two or more segments not discernable within the apical view), or 3) questionable left ventricular function. ?
[2023-06-17] MEDS: ACETAMINOPHEN 325 MG TABLET 650 MG PO ×2 (11:30→19:13)
[2023-06-17] MEDS: carvediloL 12.5 MG TABLET PO ×2 (11:30→20:23)
[2023-06-17] MEDS: LATANOPROST 0.005% OP SOLN 2.5 ML BTL 1 DROP EACH EYE (18:40)
[2023-06-17] MEDS: ATORVASTATIN 10 MG TABLET PO (20:23)
[2023-06-18] VITALS (11 sets, daily range): BP systolic 104–122; BP diastolic 41–61; PULSE 58–83; RESP 16–18; TEMP 36.1–36.5; O2SAT 93–97
--- NOTE | 2023-06-18 01:54 | PC.NURSE ---
Daylight Savings Time For Daylight Savings Time Ending in the Fall - Clocks are moved back. For Daylight Savings Time Beginning in the Spring - Clocks are moved ahead. For [facility], the time of change occurs at 0200 hrs. Time is taken from the time study observer. This entry on the patient's chart recognizes the change in time reflected during documentation. Example: 2 entries for vital signs may be charted for 0200 hrs.
[2023-06-18] MEDS: LEVOTHYROXINE SODIUM 75 MCG TABLET PO (06:27)
[2023-06-18] MEDS: PSYLLIUM POWDER PACKET 1 PACKET BY MOUTH (09:13)
[2023-06-18] MEDS: LOTEPREDNOL ETABONATE 0.5% OPH 5 ML BOTTLE 1 DROP EACH EYE (09:13)
[2023-06-18] MEDS: predniSONE 2.5 MG TABLET 7.5 MG PO (09:15)
[2023-06-18] MEDS: ISOSORBIDE MONONITRATE 30 MG TAB.ER.24H PO (09:16)
[2023-06-18] MEDS: FUROSEMIDE 40 MG TABLET PO (09:16)
[2023-06-18] MEDS: ACIDOPHILUS/BULGARICUS CHEWABLE TABLET 2 TABLET BY MOUTH (09:16)
[2023-06-18] MEDS: DOXYCYCLINE HYCLATE 100 MG TABLET PO (09:16)
[2023-06-18] MEDS: CALCIUM CARBONATE (OSCAL) 500 MG TABLET PO (09:17)
[2023-06-18] MEDS: GABAPENTIN 300 MG CAPSULE BY MOUTH (09:17)
[2023-06-18] MEDS: VITAMIN B COMPLEX CAPSULE 1 CAP PO (09:17)
[2023-06-18] MEDS: carvediloL 12.5 MG TABLET PO (09:17)
[2023-06-18] MEDS: SPIRONOLACTONE 25 MG TABLET PO (09:17)
[2023-06-18] MEDS: ACETAMINOPHEN 325 MG TABLET 650 MG PO (09:17)
[2023-06-18] MEDS: lisinopriL 20 MG TABLET PO (09:18)
[2023-06-18] MEDS: CLOPIDOGREL BISULFATE 75 MG TABLET PO (09:18)
[2023-06-18] MEDS: ASPIRIN 81 MG ENTERIC TABLET PO (09:18)
[2023-06-18] MEDS: MULTIVITAMINS THERAPEUTIC TAB (*BKC) 1 TABLET PO (09:18)
[2023-06-18] MEDS: POTASSIUM CHLORIDE 20 MEQ ER TABLET PO (09:18)
[2023-06-18] MEDS: IPRATROPIUM NASAL SPRAY 0.06% 15 ML BOTTLE 2 SPRAY NASAL (09:19)
--- NOTE | 2023-06-18 10:35 | PM.PNCARD ---
Progress Note: A&P Assessment and Plan (1) Chest pain: Code(s): R07.9 - Chest pain, unspecified Status: Acute Assessment and Plan: Her chest pain is very atypical and is clearly reproducible on examination, consistent with a musculoskeletal etiology. Recommend Tylenol for pain control. Her pain has significantly improved with Tylenol. (2) Elevated troponin: Code(s): R79.89 - Other specified abnormal findings of blood chemistry Status: Acute Assessment and Plan: Minimally elevated and flat. EKGs are unchanged compared to previous ones. This is not consistent with an acute coronary syndrome. 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 Echocardiogram this admission shows LVEF is now 20-25%. Discussed the results with the patient. Will optimize her heart failure regimen. Increased her Spironolactone to 25mg. Continue Coreg, Lisinopril, PO Lasix. Since I increased her dose of Spironolactone, will stop her potassium supplement of 20meq daily to avoid hyperkalemia. Will have her check a BMP in 1 week. (4) Essential (primary) hypertension: Code(s): I10 - Essential (primary) hypertension Status: Acute Assessment and Plan: Continue home antihypertensive regimen. Her Spironolactone was increased to 25mg once daily. (5) CAD in [place] artery: Code(s): I25.10 - Atherosclerotic heart disease of [place] coronary artery without angina pectoris Status: Acute Assessment and Plan: Continue ASA, Plavix, statin, beta nereyda, Imdur Plan Okay to discharge home from my standpoint. Will arrange follow up with Dr. Barboza. Subjective Date/time seen: 06/18/23 10:35 Interval history: Reason for visit: Chest pain, elevated troponins HPI: We are consulted for elevated troponin. This is an 87 year old female patient of Dr. Barboza's who has coronary artery disease and cardiomyopathy. She underwent interventional revascularization of her LAD a long time ago and unfortunately suffered repeated stenoses requiring surgery where she had a RICE to her LAD placed. Despite that, she had failure of her RICE graft and had another LAD intervention done and has been doing okay from a coronary standpoint since then. She has known cardiomyopathy, last echo from 2019 shows LVEF visually estimated at 35% (measured at 47% however). Patient presented to [facility] for chest pain that has been occurring since Monday. Pain is sharp and located underneath her left breast and goes to the left side and to her back. It gets worse when she is trying to get up from laying in bed. EKGs show sinus rhythm with STTW abnormality in the lateral leads. EKGs are unchanged compared to previous. Troponins are mildly elevated at 0.052, 0.054, 0.050. Date of service 06/17: Feeling well today. Review of Systems Review of Systems: All systems reviewed & are unremarkable except as noted in HPI and below (HPI) Exam Const: General: comfortable and no acute distress HENMT: Mouth: Yes moist mucous membranes Eyes: General: appearance normal, both eyes and all related structures Sclera: sclerae normal Resp: Effort & Inspection: normal respiratory effort Cardio: Rate: regular rate Rhythm: regular rhythm Skin: General skin exam: normal color Neuro: Speech: normal speech Psych: Mental Status: mental status grossly normal Affect: normal affect Objective Data Vital Signs Vital Signs: Vital Signs - 24 hr 06/17/23 10:00 06/17/23 11:30 06/17/23 11:32 Temperature 35.8 C L Pulse Rate 91 65 73 Respiratory Rate 20 Blood Pressure 138/57 L Pulse Oximetry 96 Oxygen Delivery 06/17/23 15:52 06/17/23 12:00 06/17/23 16:00 Temperature 35.9 C L Pulse Rate 78 Respiratory Rate 18 Blood
--- NOTE | 2023-06-18 10:48 | PM.DS ---
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: Code(s): I50.40 - Unspecified combined systolic (congestive) and diastolic (congestive) heart failure Status: Acute (3) CAD in [place] artery: Code(s): I25.10 - Atherosclerotic heart disease of [place] coronary artery without angina pectoris Status: Acute (4) Essential (primary) hypertension: Code(s): I10 - Essential (primary) hypertension Status: Acute (5) Hypothyroidism (acquired): Code(s): E03.9 - Hypothyroidism, unspecified Status: Acute DS: Summary Hospital Course Reason for hospitalization: Elevated troponin Heart failure wtih reduced ejection fraction and diastolic dysfunction CAD Hypertension Hypothyroidism Hospital Course: 87 year old female with significant medical history of hypertension, coronary artery disease s/p bypass graft (2009), diastolic heart failure with reduced ejection fraction (EF 47%), dyslipidemia, hypothyroidism, recurrent lower extremity DVT, and adenocarcinoma of the ascending colon s/p right colectomy (06/07/2017). Patient arrived to the hospital from home for left upper quadrant/chest pain. Patient gave the following history with daughter in room, daughter gave further information with patient permission. Patient described the pain as an intermittent sharp, stabbing pain with radiation to the back. She stated the pain started on Tuesday 06/13 and has continued to progress. The pain was worse with inspiration and twisting movements. She took aspirin with minimal relief of symptoms. She denies recent shortness of breath, nausea, vomiting, changes in bowel/bladder, cough and sick contacts. CTA was obtained and reveals no pulmonary embolus. Lipase was unremarkable. She had an extensive cardiac history and follows Dr. Barboza. History of LAD revascularization followed by restenosis requiring RICE placed to LAD. RICE graft failed and another LAD intervention was done. Angiogram in 2008 demonstrates revascularization. She was recently seen by her charter boat operator, who increased her furosemide due to increased lower extremity edema. Echo on 09/2019 revealed impaired diastolic dysfunction grade I with an ejection fraction of 47%, mild mitral valve regurgitation and mild tricuspid regurgitation. An echo was obtained during hospitalization and LVEF was 20-25%. EKG in ED was essentially unchanged from previous EKG in 03/2023. Troponin peaked at 0.054. Cardiology evaluated patient and increased her spironolactone to 25mg. Will discontinue potassium supplement and patient is to have a BMP drawn outpatient. She will follow up with cardiology and primary care provider outpatient. Patient is stable and will be discharged to home. Final diagnosis: Elevated troponin in setting of heart failure with reduced ejection fraction Status at Discharge Functional status at discharge: uses cane/walker Time Spent with Patient Time attestation: Total time spent providing and/or coordinating discharge services: Time spent: Greater than 30 minutes Exam Narrative: AF HR 74 RR 18 SpO2 95 RA BP 122/61 General: well-developed female in no acute respiratory distress who is nontoxic appearing, sitting on side of bed HEENT: Normocephalic. Atraumatic. Pupils equal round reactive to light. Extraocular movement intact. Sclera clear and anicteric.No facial asymmetry. Chest: Lungs are clear to auscultation bilaterally. No wheezes or crackles. CV: Heart was regular rate and rhythm. S1-S2. No murmurs, gallops, or rubs. Abd: Abdomen was soft. Nontender. Nondistended. Positive
--- NOTE | 2023-06-18 14:12 | PC.NURSE ---
The pt was escorted to private family vehicle in a wheelchair. The pt was discharge. Discharge education given with all questions answered. All belongings removed from the room per pt. Denies pain no manifestations of distress noted.
== END 2023-06-18 13:18 | disposition home or self-care (01) ==
LOC: ANHED 12:51 → ANHIMU 17:38
PROVIDERS: Student in an Organized Health Care Education/Training Program; Admitting Provider Internal Medicine; Emergency Provider Emergency Medicine; PCP Nurse Practitioner Family; Visit Provider Internal Medicine
DX: I11.0 Hypertensive heart disease with heart failure (principal); I50.40 Unspecified combined systolic (congestive) and diastolic (congestive) heart failure; R79.89 Other specified abnormal findings of blood chemistry; I08.3 Combined rheumatic disorders of mitral, aortic and tricuspid valves; K80.20 Calculus of gallbladder without cholecystitis without obstruction; N20.0 Calculus of kidney; I25.10 Atherosclerotic heart disease of native coronary artery without angina pectoris; Z95.1 Presence of aortocoronary bypass graft; Z95.5 Presence of coronary angioplasty implant and graft; F41.9 Anxiety disorder, unspecified; G89.29 Other chronic pain; M54.50 Low back pain, unspecified; E78.5 Hyperlipidemia, unspecified; R94.31 Abnormal electrocardiogram [ECG] [EKG]; M15.9 Polyosteoarthritis, unspecified; E03.9 Hypothyroidism, unspecified; G62.9 Polyneuropathy, unspecified; Z86.718 Personal history of other venous thrombosis and embolism; Z90.49 Acquired absence of other specified parts of digestive tract; Z85.038 Personal history of other malignant neoplasm of large intestine; Z79.82 Long term (current) use of aspirin; Z79.01 Long term (current) use of anticoagulants; Z79.52 Long term (current) use of systemic steroids; Z79.899 Other long term (current) drug therapy
CPT/HCPCS: 36415; 71275; 74177; 80048; 80053; 81001; 83690; 83735; 83880; 84443; 84484; 85025; 85027; 85610; 85730; 93005; 93306; 96374; 99285; A9270; G0378; Q9957; Q9967

== ENCOUNTER 2023-06-21 01:54 | Observation (INO) | payer MEDICARE, SELFPAY ==
[2023-06-21] VITALS (14 sets, daily range): BP systolic 111–172; BP diastolic 51–68; PULSE 54–79; RESP 15–18; TEMP 36.4–36.9; O2SAT 96–98
--- NOTE | ~2023-06-21 | CT_ITS ---
Clinical Indication: Chest pain, abdominal pain CT Scan of the Chest, Abdomen, and Pelvis with Contrast: Technique: Contiguous sections were acquired throughout the chest, abdomen, and pelvis after intraven ous administration of 100 cc of Omnipaque 350. Dose reduction technique was used on this scan by sommer ronquilloing automated exposure control and iterative reconstruction technique. The dose-length product (DL P) was 972.15 mGy-cm. COMPARISON: 06/16/2023 Findings: There is no evidence of any significant mediastinal, hilar or axillary lymphadenopathy. Cardiomegaly noted. No aortic aneurysm or dissection seen. No pulmonary embolus identified. There is no evidence of pleural or pericardial effusion. The lungs are clear. No pulmonary nodules or infiltrates are noted. Chronic right rib fracture deform ities are noted. The liver, spleen, pancreas, adrenals and right kidney are within normal limits. 1.2 cm nonobstructin g left renal stone present. Small layering calcified gallstones are present. There are atheroscleroti c calcifications of the aorta. No lymphadenopathy. No bowel obstruction or bowel wall thickening. There is no evidence to suggest acute appendicitis. Sm all upper ventral fat-containing hernia present. Additional ventral hernia just superior to the umbil icus contains a focal small bowel, and one wall of the adjacent transverse colon. Urinary bladder is unremarkable. No pelvic mass seen. No ascites. T8 compression fracture present, wo rsened from prior exam. Impression: Worsening T8 compression fracture since prior exam, with mild progressive loss of height. No other acute abnormality seen. No pulmonary embolus. Cholelithiasis. Nonobstructing 1.2 cm left renal stone. Ventral hernias, as detailed above. No bowel obstruction or bowel wall thickening. Reviewed, dictated and finalized at [facility]. Impression: Worsening T8 compression fracture since prior exam, with mild progressive loss of height. No other acute abnormality seen. No pulmonary embolus. Cholelithiasis. Nonobstructing 1.2 cm left renal stone. Ventral hernias, as detailed above. No bowel obstruction or bowel wall thickeni ng.
--- NOTE | ~2023-06-21 | XR_ITS ---
Portable chest x-ray Comparison: 04/08/2023 Clinical History: Shortness of breath Findings: Possible minimal bibasilar haziness. Cardiomediastinal silhouette is stable. Chronic rib fracture deformities are noted. Impression: Possible mild bibasilar pulmonary edema. Correlate clinically. Stable cardiomegaly, status post probable CABG. Reviewed, dictated and finalized at [facility]. Impression: Possible mild bibasilar pulmonary edema. Correlate clinically. Stable cardiomegaly, status post probable CABG.
--- NOTE | 2023-06-21 02:23 | ECG_ITS ---
Measurements Intervals [place] Rate: 62 P: -26 [place]: 206 QRS: -4 QRSD: 105 T: 164 QT: 419 QTc: 426 Interpretive Statements SINUS RHYTHM WITH FIRST DEGREE AV BLOCK POSSIBLE LEFT ATRIAL ENLARGEMENT BORDERLINE R WAVE PROGRESSION, ANTERIOR LEADS ST-T WAVE ABNORMALITY IN HIGH LATERAL LEADS- CONSIDER ISCHEMIA BASELINE ARTIFACT- I, II, III, AVR, AVL, AV ABNORMAL ECG COMPARED TO ECG 06/16/2023 12:49:21 SINUS RHYTHM NOW PRESENT Electronically Signed On 06-21-2023 6:39:44 CDT by Jay Gibson D.O.
--- NOTE | 2023-06-21 02:42 | ED.GENADULT ---
HPI - General Adult General Chief complaint: Unspecified Stated complaint: generalized pain Time Seen by Provider: 06/21/23 02:00 History of Present Illness HPI narrative: He is a 86-year-old female who presents emergency department with chief complaint of generalized pain. The patient was in the hospital recently after she was having some chest and abdomen pain patient reports that she was in the hospital for several days and then got discharged home patient reports she has been having pain now on the right side of her chest and abdomen reports that radiates to her back reports that she has pain with inspiration Related Data Home Medications Medication Instructions Recorded Confirmed aspirin 81 mg tablet,delayed 81 mg PO DAILY 03/26/19 06/16/23 release (Adult Low Dose Aspirin) clopidogrel 75 mg tablet 75 mg PO DAILY 03/26/19 06/16/23 cranberry 500 mg capsule 1,000 mg PO DAILY 03/26/19 06/16/23 isosorbide mononitrate 30 mg 30 mg PO DAILY 03/26/19 06/16/23 tablet,extended release 24 hr multivitamin 1 tablet PO DAILY 03/26/19 06/16/23 nitroglycerin 0.4 mg sublingual 0.4 mg sublingual Q5M PRN Chest 03/26/19 06/16/23 tablet (Nitrostat) Pain calcium carbonate 600 mg calcium 600 mg PO DAILY 06/20/19 06/16/23 (1,500 mg) tablet (Calcium) vitamin B complex (B 1 tablet PO DAILY 06/20/19 06/16/23 Complex-Vitamin B12 tablet) carvedilol 25 mg tablet 12.5 mg PO Q12H 01/27/20 06/16/23 lactobacillus combination no.9 4 4,000 mmu cells PO DAILY 07/08/21 06/16/23 billion cell capsule (Adult 50 Plus Probiotic) peg 400-propylene glycol 0.4 %-0.3 1 drp EACH EYE DAILY PRN Dry Eyes 07/08/21 06/16/23 % eye drops (Systane Ultra) psyllium husk 0.4 gram capsule 0.4 g PO DAILY 07/08/21 06/16/23 (Metamucil) latanoprost 0.005 % eye drops 1 drp EACH EYE QPM 08/09/21 06/16/23 loteprednol etabonate 0.5 % eye 1 drp EACH EYE BID 10/20/21 06/16/23 drops,suspension clobetasol 0.05 % topical cream 1 applic topical DAILY PRN Rash 08/08/22 06/16/23 prednisone 2.5 mg tablet 7.5 mg PO EVERY OTHER DAY 08/08/22 06/16/23 doxycycline hyclate 100 mg tablet 100 mg PO DAILY 04/08/23 06/16/23 furosemide 20 mg tablet 40 mg PO QAM 05/19/23 06/16/23 bimatoprost 0.01 % eye drops 1 drp EACH EYE QPM 06/16/23 06/16/23 (Lumigan) loteprednol etabonate 0.5 % eye 2 drp EACH EYE BID 06/16/23 06/16/23 drops,suspension Allergies Allergy/AdvReac Type Severity Reaction Status Date / Time hydroxychloroquine Allergy Mild Rash Verified 06/21/23 02:13 clindamycin AdvReac Intermediate cDiff Verified 06/21/23 02:13 duloxetine AdvReac Mild Diarrhea Verified 06/21/23 02:13 Review of Systems Review of Systems: A 10 system review of systems was completed on the patient and is negative except for what is stated in the HPI. Nursing and ancillary documentation was reviewed. [facility] Past Medical History Medical History Anxiety Bullous pemphigoid CAD in [place] artery CHF (congestive heart failure) Chronic low back pain without sciatica Dyslipidemia, goal LDL below 100 Eczema Essential (primary) hypertension Generalized osteoarthritis of multiple sites History of Clostridioides difficile colitis 2018 History of colon cancer History of recurrent deep vein thrombosis (DVT) 2013 - left LE 2019 - left LE Hx of blood clots Hypothyroidism (acquired) Insomnia Neuropathy of lower extremity Polymyalgia rheumatica (~2019) Surgical History Surgical History History of back surgery 1990 for herniated disc L spine History of coronary artery stent placement 1999 History of eyelid surgery 03/2013 - b/l History of right hemicolectomy 05/2017 Hx of cataract extraction left - 11/2012 right - 12/2012 Family History Family History Mother Family history of cardiovascular disea
[2023-06-21 02:53] LABS: Basophils Percent Auto 0.4 % (0.2-1.2); Eosinophils Absolute Auto 0.2 K/mm3 (0-0.3); Eosinophils Percent Auto 2.3 % (0-4.4); Hematocrit 37.3 % (37.0-47.0); Hemoglobin 12.1 g/dL (12.0-15.0); Immature Granulocyte Absolute 0.05 K/mm3 (0.00-0.031); Immature Granulocyte Percent A 0.5 % (0-0.5); Lymphocytes Absolute Auto 1.97 K/mm3 (0.9-3.2); Lymphocytes Percent Auto 20.8 % (18.3-44.2); Mean Corpuscular HGB Conc 32.4 g/dl (32-36); Mean Corpuscular Hemoglobin 33.3 pg (26-34); Mean Corpuscular Volume 102.8 fl (80-100); Mean Platelet Volume 12.2 fl (7.4-10.4); Monocytes Absolute Auto 1.3 K/mm3 (0.1-0.6); Monocytes Percent Auto 13.3 % (2.6-8.5); Neutrophils Percent Auto 62.7 % (45.5-73.1); Platelet Count Result 173 k/mm3 (150-375); Red Blood Count 3.63 M/mm3 (4.2-5.4); Red Cell Distribution Width 15.2 % (11.5-14.5); White Blood Count 9.5 K/mm3 (4.5-10.0)
[2023-06-21] MEDS: MORPHINE SULFATE (*CRX) 4 MG/ML INJ 2 MG IV PUSH (03:00)
[2023-06-21 03:01] LABS: Appearance Urine Clear (Clear); Bacteria Urine None Seen /hpf; Bilirubin Urine Negative (Negative); Blood Urine Negative (Negative); Color Urine Yellow (Yellow); Glucose Urine UA Negative (Negative); Ketones Urine Negative (Negative); Leukocyte Esterase Ur Trace LEU/UL (Negative); Nitrate Urine Negative (Negative); Non Pathogenic Casts 0-2; Protein Urine Negative (Negative); RBC Urine 0-2 /hpf (0-2); Specific Grav Ur 1.015 (1.001-1.035); Squamous Epithelial Cell Urine None Seen /hpf (Few); Urobilinogen Urine 0.2 mg/dL (<2.0); WBC Urine 0-5 /hpf (0-3); pH Urine 7.5 (5.0-9.0)
[2023-06-21] MEDS: FAMOTIDINE 20 MG/2 ML VIAL IV PUSH (03:01)
[2023-06-21 03:06] LABS: Prothrombin Time 13.1 Seconds (11.1-14.7)
[2023-06-21 03:07] LABS: Partial Thromboplastin Time 27.2 Seconds (22.3-36.8)
[2023-06-21 03:08] LABS: Add Urine Microscopic? YES
[2023-06-21 03:13] LABS: Lactic Acid Reflex 1.1 mmol/L (0.7-2.0)
[2023-06-21 03:14] LABS: Alanine Aminotransferase 23 U/L (6-35); Albumin Level 4.1 g/dL (3.5-5.1); Alkaline Phosphatase 78 U/L (38-126); Anion Gap 4 mmol/L (8-16); Aspartate Amino Transferase 33 U/L (14-36); Bilirubin,Total 0.5 mg/dL (0.2-1.3); Blood Urea Nitrogen 29 mg/dL (7-17); Calcium 9.7 mg/dL (8.4-10.2); Carbon Dioxide 27 mmol/L (22-30); Chloride 105 mmol/L (98-107); Estimated CRCL calculation 38 ml/min; Estimated Glomerular Filt Rate 59; Glucose 112 mg/dL (65-110); Lipase 163 U/L (23-300); Magnesium 2.2 mg/dL (1.6-2.3); Potassium 4.2 mmol/L (3.4-5.0); Sodium 136 mmol/L (137-145)
[2023-06-21 03:25] LABS: NT Pro B Type Natriuretic Pept 1580 pg/mL (19.9-100); Troponin I 0.016 ng/mL (0.000-0.034)
[2023-06-21 03:42] LABS: Procalcitonin 0.1 ng/mL
[2023-06-21 03:50] LABS: Influenza A QL RT-PCR Negative (Negative); Influenza B QL RT-PCR Negative (Negative); RSV RNA, RT-PCR Negative (Negative); SARS-CoV-2 RNA PCR Negative (Negative)
[2023-06-21] MEDS: MORPHINE SULFATE (*CRX) 4 MG/ML INJ IV PUSH (05:52)
--- NOTE | 2023-06-21 06:04 | ECG_ITS ---
Measurements Intervals [place] Rate: 55 P: 64 [place]: 219 QRS: -27 QRSD: 100 T: 153 QT: 450 QTc: 433 Interpretive Statements SINUS BRADYCARDIA WITH FIRST DEGREE AV BLOCK BORDERLINE R WAVE PROGRESSION, ANTERIOR LEADS ST-T WAVE ABNORMALITY IN HIGH LATERAL LEADS- CONSIDER ISCHEMIA BASELINE ARTIFACT- I, II, AVR ABNORMAL ECG COMPARED TO ECG 06/21/2023 02:56:59 SINUS BRADYCARDIA NOW PRESENT Electronically Signed On 06-21-2023 6:43:13 CDT by Jay Gibson D.O.
[2023-06-21 06:40] LABS: Troponin I 0.017 ng/mL (0.000-0.034)
--- NOTE | 2023-06-21 07:42 | PC.NURSE ---
0700- Assumed care of pt. Pt resting with reg resp. Family at bedside. Waiting on IP room.
--- NOTE | 2023-06-21 09:07 | ADMGEN ---
This patient, Krystle Avila, was admitted to 2 Medical Room 244-. Patient/family oriented to hospital policies and general routines including ID bracelet, bed and alarms, visiting hours, pain management, procedures, bathroom and other care routines, personal items, smoking policy, room service/diet, and visiting hours. Information on how to activate the Rapid Response Team has been discussed. Patient/Family are encouraged to report perceived risks to care and to ask questions if they do not understand what they are told or what they should do.
--- NOTE | 2023-06-21 11:18 | PM.IMHP ---
H&P: HPI History of Present Illness Date/Time: 06/21/23 11:18 Chief Complaint: Abdominal and back pain Narrative: 86yo female with CHF, CAD, HTN, osteoarthritis and polymyalgia rheumatica here for generalized pain. Patient was here 06/15 for left upper quadrant/abdominal pain. CTA chest with no pulmonary embolus. Lipase was unremarkable. She was recently seen by her local hazmat driver, who increased her furosemide due to increased lower extremity edema. Echo showing LVEF was 20-25%. EKG in ED was essentially unchanged from previous EKG in 03/2023. Troponin peaked at 0.054. Cardiology evaluated patient and increased her spironolactone to 25mg. She was discharged on 06/17. Patient was doing well until around 1:00 a.m. on admission she was up to void. Patient was trying to get out of bed, she developed sharp shooting through the upper abdomen right worse than left that radiated to the back. She had numbness in her legs but later states that this is more chronic and not acute. She was short of breath and had some mild nausea. She states this is the same pain that brought her to the hospital on June 15. Pain has never really resolved and waxes and wanes in severity. She tried Tylenol at home with some benefit. She denies any fever, chills, headache, vision changes, odynophagia, dysphagia, hearing loss, otalgia, chest pain, cough, dysuria, hematuria, frequency or urinary urgency. No diarrhea constipation. She does have some leg edema but this is better since her local hazmat driver advanced her diuretic few weeks ago. Patient presented to the ED. Vital signs stable with elevated BP. Labs were unrevealing. Her BNP was 1580 but lower from prior hospital stay. Troponin negative x2. UA clear. CTA Chest/Abd/Pelvis showing worsening T8 compression fracture o/w no acute findings. Patient was given Pepcid and morphine with improvement in her pain. Review of Systems Review of Systems: All systems reviewed & are unremarkable except as noted in HPI and below PMFSH Past Medical History Medical History Anxiety Bullous pemphigoid CAD in [place] artery CHF (congestive heart failure) Chronic low back pain without sciatica Dyslipidemia, goal LDL below 100 Eczema Essential (primary) hypertension Generalized osteoarthritis of multiple sites History of Clostridioides difficile colitis 2018 History of colon cancer History of recurrent deep vein thrombosis (DVT) 2014 - left LE 2019 - left LE Hx of blood clots Hypothyroidism (acquired) Insomnia Neuropathy of lower extremity Polymyalgia rheumatica (~2018) Surgical History Surgical History History of back surgery 1990 for herniated disc L spine History of coronary artery stent placement 1999 History of eyelid surgery 03/2013 - b/l History of right hemicolectomy 05/2017 Hx of cataract extraction left - 11/2012 right - 12/2012 Family History Family History Mother Family history of cardiovascular disease Father Cerebrovascular accident Social History Social History Social History: Caffeine-coffee daily Smoking status: Never smoker Second hand tobacco smoke exposure: No Alcohol intake: never Substance use: never Substance use type: does not use Do You Feel Safe in your Home?: Yes Lack of Transportation: No Lack of Food: Never True Current Housing: I Have Housing Concerned About Future Housing: No Difficulty Paying Gas/Electric Bills: No Difficulty Paying for Meds: No Currently Unemployed: No Education: Don't Know Difficulty w/ Childcare or Family Care: No Living arrangements: alone Occupation/Education: retired Gender identity (if verbalized by the patient): Female Spiritual care concerns: No Agree to blood products: Yes Meds
[2023-06-21] MEDS: FUROSEMIDE 40 MG TABLET PO (12:51)
[2023-06-21] MEDS: carvediloL 12.5 MG TABLET PO ×2 (12:51→20:40)
[2023-06-21] MEDS: ASPIRIN 81 MG ENTERIC TABLET PO (12:52)
[2023-06-21] MEDS: HYDROcodone/acetaminophen (*CRX) 5-325 MG TABLET 1 TAB PO ×2 (12:52→20:40)
[2023-06-21] MEDS: lisinopriL 20 MG TABLET PO (12:52)
[2023-06-21 13:21] LABS: Folic Acid > 20.0 ng/mL (2.76->20)
--- NOTE | 2023-06-21 14:06 | WPDNEUROSGCN ---
Assessment and Plan Assessment and plan (1) Compression fracture of T8 vertebra: Code(s): S22.060A - [place]ge compression fracture of T7-T8 vertebra, initial encounter for closed fracture Status: Acute Plan Ms. Avila is an 87-year-old female with multiple medical comorbidities who was readmitted today with continued pain in the lower rib cage and more recently in the back who was found to have a T8 compression fracture. She is neurologically intact on physical exam. CT scan shows a T8 compression fracture with about 50% loss of height and no retropulsion, kyphosis, or canal stenosis. I am told that a TLSO brace has already been ordered for her. She can wear this for comfort and does not need to wear it in bed. She should not lift > 10lbs while healing from this fracture and should avoid bending/twisting. NSAIDs should also be ideally avoided as these can interfere with bone healing. I will arrange for follow up in our clinic in a few weeks. Consult date: 06/21/23 HPI: Krystle Avila is a 87 year old female with history of HTN, CAD, CHF, polymyalgia rheumatica who was admitted to the hospital this morning with back and lower chest pain. She was admitted last week for the same complaints and was discharged home on June 17 at which time she states she was feeling better. Last week, she indicated her pain was more on the sides of her rib cage radiating to the abdomen. Today, she has more back pain generally across the mid and lower back that can radiate around on the sides. On presentation to the ER, she was found to have a thoracic compression fracture for which Neurosurgery was consulted. She denies any history of falls or other trauma/injury. She denies radiation of pain into the legs. She has some occasional paresthesias in the legs which is not a new issue and for which her PCP prescribed gabapentin. She has been walking well with a cane and denies worsening pain with ambulation. Her pain is most significant when going from sitting to standing or when getting in and out of the car. Review of Systems Review of Systems: All systems reviewed & are unremarkable except as noted in HPI and below PMFSH Past Medical History Medical History Anxiety Bullous pemphigoid CAD in [place] artery CHF (congestive heart failure) Chronic low back pain without sciatica Dyslipidemia, goal LDL below 100 Eczema Essential (primary) hypertension Generalized osteoarthritis of multiple sites History of Clostridioides difficile colitis 2018 History of colon cancer History of recurrent deep vein thrombosis (DVT) 2013 - left LE 2019 - left LE Hx of blood clots Hypothyroidism (acquired) Insomnia Neuropathy of lower extremity Polymyalgia rheumatica (~2018) Surgical History Surgical History History of back surgery 1990 for herniated disc L spine History of coronary artery stent placement 1999 History of eyelid surgery 03/2013 - b/l History of right hemicolectomy 05/2017 Hx of cataract extraction left - 11/2012 right - 12/2012 Family History Family History Mother Family history of cardiovascular disease Father Cerebrovascular accident Social History Social History Social History: Caffeine-coffee daily Smoking status: Never smoker Second hand tobacco smoke exposure: No Alcohol intake: never Substance use: never Substance use type: does not use Do You Feel Safe in your Home?: Yes Lack of Transportation: No Lack of Food: Never True Current Housing: I Have Housing Concerned About Future Housing: No Difficulty Paying Gas/Electric Bills: No Difficulty Paying for Meds: No Currently Unemployed: No Education: Don't Know Difficulty w/ Childcare or Family Care: No Living arrangements: alone Occ
[2023-06-21] MEDS: LATANOPROST 0.005% OP SOLN 2.5 ML BTL 1 DROP EACH EYE (17:28)
[2023-06-21] MEDS: GABAPENTIN 300 MG CAPSULE PO (17:28)
[2023-06-21] MEDS: CLOPIDOGREL BISULFATE 75 MG TABLET PO (17:28)
[2023-06-21] MEDS: LOTEPREDNOL ETABONATE 0.5% OPH 5 ML BOTTLE 1 DROP EACH EYE (17:29)
[2023-06-21] MEDS: ATORVASTATIN 10 MG TABLET PO (20:40)
[2023-06-22] VITALS: PULSE 68
[2023-06-22 04:00] VITALS: PULSE 73
[2023-06-22 05:17] VITALS: BP 117/50; PULSE 60; RESP 16; TEMP 36.6; O2SAT 96
[2023-06-22] MEDS: LEVOTHYROXINE SODIUM 75 MCG TABLET PO (06:24)
[2023-06-22] MEDS: HYDROcodone/acetaminophen (*CRX) 5-325 MG TABLET 1 TAB PO ×2 (06:24→14:27)
[2023-06-22 08:00] VITALS: PULSE 59
[2023-06-22] MEDS: ASPIRIN 81 MG ENTERIC TABLET PO (08:29)
[2023-06-22] MEDS: SPIRONOLACTONE 25 MG TABLET PO (08:29)
[2023-06-22] MEDS: GABAPENTIN 300 MG CAPSULE PO (08:29)
[2023-06-22] MEDS: FUROSEMIDE 40 MG TABLET PO (08:29)
[2023-06-22 08:30] VITALS: PULSE 74
[2023-06-22] MEDS: carvediloL 12.5 MG TABLET PO (08:30)
[2023-06-22] MEDS: ISOSORBIDE MONONITRATE 30 MG TAB.ER.24H PO (08:30)
[2023-06-22] MEDS: ACIDOPHILUS/BULGARICUS CHEWABLE TABLET 4 TABLET BY MOUTH (08:30)
[2023-06-22] MEDS: CALCIUM CARBONATE (OSCAL) 500 MG TABLET PO (08:30)
[2023-06-22] MEDS: VITAMIN B COMPLEX CAPSULE 1 CAP PO (08:30)
[2023-06-22] MEDS: MULTIVITAMINS THERAPEUTIC TAB (*BKC) 1 TABLET PO (08:30)
[2023-06-22] MEDS: PSYLLIUM POWDER PACKET 1 PACKET BY MOUTH (08:30)
[2023-06-22] MEDS: predniSONE 2.5 MG TABLET 7.5 MG PO (08:30)
[2023-06-22] MEDS: lisinopriL 20 MG TABLET PO (08:30)
[2023-06-22] MEDS: LOTEPREDNOL ETABONATE 0.5% OPH 5 ML BOTTLE 1 DROP EACH EYE (08:31)
[2023-06-22] MEDS: ACETAMINOPHEN 325 MG TABLET 650 MG PO (10:05)
--- NOTE | 2023-06-22 12:52 | PM.DS ---
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 Please see H&P for details. Hospital Course: Patient here for generalized pain worse in the upper abdomen radiating to the flanks and back. She presented to the ED. Vital signs stable with elevated BP. Labs were unrevealing. Her BNP was 1580 but lower then from prior hospital stay. Troponin negative x2. UA clear. CTA Chest/Abd/Pelvis showing worsening T8 compression fracture o/w no acute findings. EKG showing sinus bradycardia (55), borderline R wave progression and ST-T wave changes in high lateral leads but no significant change. No trauma or other injuries. Suspected she has osteoporosis related to her cronic steroid use. Patient was given Pepcid and morphine with improvement in her pain. B12/folate normal. Neurosurgery consulted. Patient was fitted with a TLSO brace. She worked with therapy and did well. Pain was controlled. Home health was arranged. She overall did well and was able to be discharged home on 06/22/23. Family in the room and stated family will be checking up on the patient frequently. Status at Discharge Cognitive/behavioral status at discharge: stable Time Spent with Patient Time attestation: Total time spent providing and/or coordinating discharge services: 35 minutes Time spent: Greater than 30 minutes Exam Narrative: AF 97.8 117/50 74 16 96% ra Gen - NARD sitting up in chair with back brace in place. Chest - CTA bilaterally, nml RR CV - RRR. S1-S2. Tele showing PVCs Abd - soft, NT/ND Ext - no pedal edema Psych - normal mood and affect. Patient is pleasant and cooperative. Skin - warm and dry. DS: Data Data Completed and Pending Labs on day of discharge: Labs from last 24 hours 06/21/23 06:15 Vitamin B12 776.0 Folate > 20.0 H Discharge Plan Discharge Attending physician on discharge: Ignacio Townsend Consulting providers: Troy Faria; Ignacio Gonzalez Discharging Clinician: Ignacio Townsend Anticipated Discharge Date/Time: 06/22/23 13:03 Patient Disposition: Home Health Service Activity: other - see discharge instructions Diet: heart healthy Discharge Instructions: Home Health -- Per Care Coordination: Patient to have [facility] for RN/PT/OT evaluation and treat. #[phone]. They will contact patient to schedule first visit Activity -- You can wear the brace for comfort but does not need to wear it in bed. Do not lift greater than 10lbs while healing from this fracture and please avoid bending/twisting. NSAIDs (Ibuprofen, Naproxen, Aleve) should also be ideally avoided as these can interfere with bone healing. Take precautions to avoid falls. Rise slowly from a lying or sitting position. Pause before standing or walking. Contact your doctor or call 911 and come to the Emergency Room if you have increasing back or abdominal pain or other worrisome symptoms. Avoid NSAIDs as above. Tylenol is safe to take. Follow-up with your primary care provider in 1-2 weeks. Please call for
== END 2023-06-22 14:35 | disposition home health service (06) ==
LOC: ANHED 06:22 → ANH2MED 09:17
PROVIDERS: Admitting Provider Internal Medicine Infectious Disease; Emergency Provider Emergency Medicine; PCP Nurse Practitioner Family; Visit Provider Internal Medicine
DX: S22.060A Wedge compression fracture of T7-T8 vertebra, initial encounter for closed fracture (principal); X58.XXXA Exposure to other specified factors, initial encounter; R10.9 Unspecified abdominal pain; G89.29 Other chronic pain; M54.50 Low back pain, unspecified; I11.0 Hypertensive heart disease with heart failure; I50.40 Unspecified combined systolic (congestive) and diastolic (congestive) heart failure; R22.1 Localized swelling, mass and lump, neck; R94.31 Abnormal electrocardiogram [ECG] [EKG]; M15.9 Polyosteoarthritis, unspecified; M35.3 Polymyalgia rheumatica; E78.5 Hyperlipidemia, unspecified; Z20.822 Contact with and (suspected) exposure to COVID-19; F41.9 Anxiety disorder, unspecified; E03.9 Hypothyroidism, unspecified; I25.10 Atherosclerotic heart disease of native coronary artery without angina pectoris; Z95.5 Presence of coronary angioplasty implant and graft; Z95.1 Presence of aortocoronary bypass graft; Z86.718 Personal history of other venous thrombosis and embolism; Z79.82 Long term (current) use of aspirin; Z79.02 Long term (current) use of antithrombotics/antiplatelets; Z79.52 Long term (current) use of systemic steroids; Z79.899 Other long term (current) drug therapy
CPT/HCPCS: 36415; 71045; 71275; 74177; 80053; 82607; 82746; 83605; 83690; 83735; 83880; 84145; 84484; 85025; 85610; 85730; 87637; 93005; 96374; 96375; 96376; 97161; 97165; 97530; 97535; 99285; A9270; G0378; J2270; Q9967

== ENCOUNTER 2023-07-14 14:29 | Outpatient (CLI) | payer MEDICARE, SELFPAY ==
[2023-07-14 18:47] LABS: Alanine Aminotransferase 21 U/L (6-35); Albumin Level 4.2 g/dL (3.5-5.1); Alkaline Phosphatase 84 U/L (38-126); Aspartate Amino Transferase 42 U/L (14-36); Bilirubin,Total 0.5 mg/dL (0.2-1.3); Blood Urea Nitrogen 43 mg/dL (7-17); Calcium 10.1 mg/dL (8.4-10.2); Carbon Dioxide 28 mmol/L (22-30); Estimated Glomerular Filt Rate 39; Glucose 109 mg/dL (65-110)
[2023-07-14 18:52] LABS: Anion Gap 5 mmol/L (4-12); Chloride 106 mmol/L (98-107); Potassium 4.5 mmol/L (3.4-5.0); Sodium 139 mmol/L (137-145)
== END 2023-07-14 14:30 | disposition home or self-care (01) ==
LOC: ANHGOSHLAB 14:31
PROVIDERS: PCP Family Medicine; Visit Provider Nurse Practitioner Family
DX: I10 Essential (primary) hypertension (principal); Z09 Encounter for follow-up examination after completed treatment for conditions other than malignant neoplasm
CPT/HCPCS: 36415; 80053; 84443

== ENCOUNTER 2023-07-14 14:41 | Outpatient (CLI) | payer MEDICARE, SELFPAY ==
--- NOTE | ~2023-07-14 | US_ITS ---
EXAMINATION: US soft tissue head and neck DATE: 07/14/2023 15:07 INDICATION: Nontoxic single thyroid nodule. Right neck mass. TECHNIQUE: Multiple ultrasound images of the thyroid were obtained. COMPARISON: None. FINDINGS: The right thyroid lobe measures 3.4 x 1.4 x 0.9 cm. The left thyroid lobe measures 3.1 x 1.0 x 0.7 c m. In the right thyroid lobe, there is a 5 mm solid, hypoechoic, wider than tall nodule with smooth margin without echogenic foci. In the right submandibular gland, there is a 1.6 cm hypoechoic mass. IMPRESSION: 1. 1.6 cm mass in the right submandibular gland. The differential diagnosis includes benign mixed micheal or, Warthin tumor, and primary malignancy. Ultrasound-guided fine-needle aspiration is recommended. 2. Small thyroid nodule, likely not clinically significant. No follow-up is needed. Reviewed, dictated and finalized at location A. IMPRESSION: 1. 1.6 cm mass in the right submandibular gland. The differential diagnosis inc ludes benign mixed tumor, Warthin tumor, and primary malignancy. Ultrasound-yissel ded fine-needle aspiration is recommended. 2. Small thyroid nodule, likely not clinically significant. No follow-up is nee ded.
== END 2023-07-14 14:42 ==
LOC: GOSHIMG 14:43
PROVIDERS: PCP Family Medicine; Visit Provider Nurse Practitioner Family
DX: E04.1 Nontoxic single thyroid nodule (principal); R22.1 Localized swelling, mass and lump, neck
CPT/HCPCS: 76536

== ENCOUNTER 2023-07-21 09:58 | Outpatient (CLI) | payer MEDICARE, SELFPAY ==
--- NOTE | ~2023-07-21 | XR_ITS ---
EXAM: XR thoracic spine 2V DATE: 07/21/2023 10:24 HISTORY: S22.060A - Wedge compression fx of T7-T8 vertebra,FOLLOW UP . COMPARISON: CTPA 06/21/2023. FINDINGS: Mediastinal clips. Several fractured sternotomy wires, mild interval inferior migration of the twisted tail of the fifth sternotomy wire, counting from superior to inferior. Coronary stent. Se nescent changes in the lungs. Vertebral body alignment intact. Moderate scoliosis. Demineralization. Moderate height loss at T8. Remaining vertebral body heights preserved. Multilevel mild disc height l oss and marginal osteophytosis. No traumatic malalignment or fracture. Visualized lung parenchyma is clear. IMPRESSION: Osteopenia. Scoliosis. Multiple fractured sternotomy wires, with mild interval migration. Multilevel mild thoracic degenerative disc disease Moderate compression fracture at T8, stable given interval differences in technique. Reviewed, dictated and finalized at location K. IMPRESSION: Osteopenia. Scoliosis. Multiple fractured sternotomy wires, with mi ld interval migration. Multilevel mild thoracic degenerative disc disease Moder ate compression fracture at T8, stable given interval differences in technique.
== END 2023-07-21 09:59 | disposition home or self-care (01) ==
PROVIDERS: PCP Family Medicine; Visit Provider Neurological Surgery
DX: S22.060A Wedge compression fracture of T7-T8 vertebra, initial encounter for closed fracture (principal); M85.88 Other specified disorders of bone density and structure, other site; M41.84 Other forms of scoliosis, thoracic region; M51.34 Other intervertebral disc degeneration, thoracic region; X58.XXXA Exposure to other specified factors, initial encounter
CPT/HCPCS: 72070

== ENCOUNTER 2023-07-31 11:47 | Outpatient (CLI) | payer MEDICARE, SELFPAY ==
--- NOTE | ~2023-07-31 | DEXA_ITS ---
? Bone Density Report? Name:? [facility] Patient ID:??? [id number] Age:? 87 Sex:? Female Ethnicity:? White Date of : 1935 Indication: postmenopausal; screening for osteoporosis; height loss; prior fracture; secondary osteoporosis; Referring Provider: DOMINIC MAXWELL Study: Bone densitometry was performed. Exam Date: July 31, 2023 Accession number: [id number] Bone Density: Region? BMD??? T-score? Z-score?? Classification AP Spine(L2, L3, L4)? 1.080??? 0.0?3.0? Normal Femoral Neck (Left)? 0.484?? -3.3? -0.8? Osteoporosis Total Hip (Left)? 0.673?? -2.2? 0.1? Osteopenia Femoral Neck (Right)? 0.621?? -2.0? 0.5? Osteopenia Total Hip (Right)? 0.630?? -2.6? -0.2? Osteoporosis Femoral Neck Mean? 0.553?? -2.7? -0.1? Osteoporosis Total Hip Mean?0.651?? -2.4? 0.0? Osteopenia World Health Organization criteria for BMD impression classify patients as: Normal (T-score at or above -1.0), Osteopenia (T-score between -1.0 and -2.5), or Osteoporosis (T-score at or below -2.5). 10-year Fracture Risk: FRAX not reported because: ? Some T-score for Spine Total or Hip Total or Femoral Neck at or below -2.5 ? Prior hip or vertebral fracture Clinical Information Provided by Patient: Have had a previous hip or vertebral fracture Has had a low trauma fracture Has secondary osteoporosis Has used the following medications: Evista (i.e. raloxifene), Vitamin D, Calcium Patient maximum height was 67 Menopause Age: 50 No regular weight bearing exercise Does not regularly consume dairy products Drinks caffeinated beverages Onset of menses at age 12 Number of children 2 Impression: The patient has established osteoporosis, based on the Left Femoral Neck T-score and the existence of a prior fracture. The patient has risk factors, including: previous fracture. Discussion: HIGH RISK OF FRACTURE. BONE DENSITY IS UNDESIRABLY LOW AT ONE OR MORE SKELETAL SITES, CONSISTENT WITH POSTMENOPAUSAL OSTEOPOROSIS. This patient's lowest T-score, in a patient who has previously fractured,? meets the World Health Organization's (WHO) criteria for severe osteoporosis. In untreated patients, the risk of osteoporotic fracture increases approximately two-fold for each 1.0 SD decrease in T-score.? Low bone density is not the only risk factor for fracture; also consider factors such as patient's age, frailty or poor health, risk of falling, risk of injury, previous osteoporotic fracture, family history of osteoporosis, cigarette smoking, low body weight, etc.? Not everyone with low bone mineral density has osteoporosis; osteomalacia and other metabolic bone disorders should also be considered. Patients who have osteoporosis should be evaluated for specific diseases and conditions (secondary causes) that may cause or contribute to bone loss.? The [place] [employer]ocrin[employer] (AACE) and National Osteoporosis Foundation (NOF) recommend pharmacologic int
== END 2023-07-31 11:48 | disposition home or self-care (01) ==
LOC: CHSIMG 11:48
PROVIDERS: PCP Family Medicine; Visit Provider Nurse Practitioner Family
DX: S22.060A Wedge compression fracture of T7-T8 vertebra, initial encounter for closed fracture (principal); Z78.0 Asymptomatic menopausal state; M81.0 Age-related osteoporosis without current pathological fracture; M85.89 Other specified disorders of bone density and structure, multiple sites
CPT/HCPCS: 77080

== ENCOUNTER 2023-08-30 11:20 | Outpatient (CLI) | payer MEDICARE, SELFPAY ==
--- NOTE | ~2023-08-30 | XR_ITS ---
XR thoracic spine 3V DATE: 08/30/2023 11:47 INDICATION: Wedge compression fracture at T7-T8 TECHNIQUE: AP, lateral, swimmer views COMPARISON: 06/16/2023 CTA chest 07/21/2023 thoracic spine FINDINGS: Thoracic dextroscoliosis. Diffuse osteopenia. There is moderately severe compression fracture deformity of T8, relatively stable since 07/21/2023. T here is mild loss of height at T5, which appears to be a new mild compression fracture since . Status post sternotomy. Cardiomegaly. Aortic calcification. Coronary artery stent. IMPRESSION: Probably stable T8 compression fracture and new mild T5 compression fracture since 024 Osteopenia Reviewed, dictated and finalized at location B. IMPRESSION: Probably stable T8 compression fracture and new mild T5 compression fracture since 07/21/2023 Osteopenia
== END 2023-08-30 11:21 | disposition home or self-care (01) ==
PROVIDERS: PCP Family Medicine
DX: S22.060A Wedge compression fracture of T7-T8 vertebra, initial encounter for closed fracture (principal); M85.88 Other specified disorders of bone density and structure, other site
CPT/HCPCS: 36415; 72072; 80069; 85025

== ENCOUNTER 2023-08-30 12:54 | Outpatient (CLI) | payer MEDICARE, SELFPAY ==
[2023-08-30 19:59] LABS: Basophils Absolute Auto 0.1 K/mm3 (0.0-0.1); Basophils Percent Auto 0.6 % (0.2-1.2); Eosinophils Absolute Auto 0.1 K/mm3 (0-0.3); Hematocrit 32.8 % (37.0-47.0); Immature Granulocyte Absolute 0.02 K/mm3 (0.00-0.031); Immature Granulocyte Percent A 0.2 % (0-0.5); Lymphocytes Absolute Auto 1.22 K/mm3 (0.9-3.2); Lymphocytes Percent Auto 13.7 % (18.3-44.2); Mean Corpuscular HGB Conc 33.5 g/dl (32-36); Mean Corpuscular Hemoglobin 35.5 pg (26-34); Mean Corpuscular Volume 105.8 fl (80-100); Mean Platelet Volume 12.5 fl (7.4-10.4); Monocytes Absolute Auto 0.7 K/mm3 (0.1-0.6); Monocytes Percent Auto 7.5 % (2.6-8.5); Neutrophils Absolute Auto 6.9 K/mm3 (1.3-6.7); Platelet Count Result 209 k/mm3 (150-375); Red Cell Distribution Width 15.4 % (11.5-14.5); White Blood Count 8.9 K/mm3 (4.5-10.0)
[2023-08-30 20:28] LABS: Albumin Level 4.3 g/dL (3.5-5.1); Anion Gap 9 mmol/L (4-12); Blood Urea Nitrogen 30 mg/dL (7-17); Calcium 9.7 mg/dL (8.4-10.2); Carbon Dioxide 24 mmol/L (22-30); Chloride 105 mmol/L (98-107); Estimated Glomerular Filt Rate 52; Glucose 108 mg/dL (65-110); Phosphorus 3.4 mg/dL (2.5-4.5); Potassium 4.9 mmol/L (3.4-5.0); Sodium 138 mmol/L (137-145)
[2023-08-30 20:32] LABS: Platelet Estimate Adequate (Adequate); Schistocytes None Seen
[2023-08-30 20:33] LABS: Anisocytosis 2+; Macrocytosis 1+ (NORMAL)
== END 2023-08-30 12:55 | disposition home or self-care (01) ==
LOC: ANHGOSHLAB 12:56
PROVIDERS: PCP Family Medicine; Visit Provider Nurse Practitioner Family
DX: N18.9 Chronic kidney disease, unspecified (principal)
CPT/HCPCS: 36415; 80069; 85025

== ENCOUNTER 2023-11-10 13:25 | Emergency (ER) | payer MEDICARE, SELFPAY ==
--- NOTE | 2023-11-10 13:26 | ED.FEMALEGU ---
HPI - Female Genitourinary General Chief complaint: Urogenital-Female Stated complaint: INFECTED FINGER/UTI SYMPTOMS Time Seen by Provider: 11/10/23 13:26 Source: patient Mode of arrival: ambulatory Limitations: no limitations History of Present Illness HPI Narrative: Krystle is an 87-year-old female presents to the clinic today with complaints of urinary frequency, urgency, and right 3rd finger discharge x 1 week. Her right 3rd finger started draining pus yesterday and she has been putting Aquaphor on it. She denies any fevers, chills, abdominal pain, flank pain, nausea, vomiting, hematuria, or dysuria. Related Data Home Medications Medication Instructions Recorded Confirmed aspirin 81 mg tablet,delayed 81 mg PO DAILY 03/26/19 09/11/23 release (Adult Low Dose Aspirin) clopidogrel 75 mg tablet 75 mg PO QACDINNER 03/26/19 09/11/23 cranberry 500 mg capsule 1,000 mg PO BID 03/26/19 09/11/23 isosorbide mononitrate 30 mg 30 mg PO DAILY 03/26/19 09/11/23 tablet,extended release 24 hr multivitamin 1 tablet PO DAILY 03/26/19 09/11/23 nitroglycerin 0.4 mg sublingual 0.4 mg sublingual Q5M PRN Chest 03/26/19 09/11/23 tablet (Nitrostat) Pain calcium carbonate (Calcium 600) 600 mg PO DAILY 06/20/19 09/11/23 vitamin B complex (B 1 tablet PO DAILY 06/20/19 09/11/23 Complex-Vitamin B12 tablet) carvedilol 25 mg tablet 12.5 mg PO Q12H 01/27/20 09/11/23 lactobacillus combination no.9 4 4,000 mmu cells PO DAILY 07/08/21 09/11/23 billion cell capsule (Adult 50 Plus Probiotic) peg 400-propylene glycol 0.4 %-0.3 1 drp EACH EYE DAILY PRN Dry Eyes 07/08/21 09/11/23 % eye drops (Systane Ultra) psyllium husk 0.4 gram capsule 0.4 g PO DAILY 07/08/21 09/11/23 (Metamucil) loteprednol etabonate 0.5 % eye 1 drp EACH EYE BID 10/20/21 09/11/23 drops,suspension clobetasol 0.05 % topical cream 1 applic topical DAILY PRN Rash 08/08/22 09/11/23 furosemide 20 mg tablet 40 mg PO QAM 05/19/23 09/11/23 bimatoprost 0.01 % eye drops 1 drp EACH EYE QPM 06/16/23 09/11/23 (Lumigan) gabapentin 300 mg capsule 300 mg PO BID 06/21/23 09/11/23 ipratropium bromide 42 mcg (0.06 2 spray intranasal TID PRN 06/21/23 09/11/23 %) nasal spray allergies brimonidine 0.025 % eye drops 1 drp EACH EYE QID PRN 09/11/23 09/11/23 (Lumify) dorzolamide 2 %-timolol 0.5 % (PF) 1 drp EACH EYE BID 09/11/23 09/11/23 eye drops niacin 500 mg tablet 500 mg PO TID 09/11/23 09/11/23 prednisone 2.5 mg tablet 5 mg PO EVERY OTHER DAY 09/11/23 09/11/23 prednisone 5 mg tablet mg PO 09/11/23 09/11/23 tacrolimus 0.1 % topical ointment 1 applic topical DAILY PRN 09/11/23 09/11/23 Allergies Allergy/AdvReac Type Severity Reaction Status Date / Time hydroxychloroquine Allergy Mild Rash Verified 11/10/23 13:51 adapalene [From Differin] AdvReac Intermediate eczema Verified 11/10/23 13:51 clindamycin AdvReac Intermediate cDiff Verified 11/10/23 13:51 duloxetine AdvReac Mild Diarrhea Verified 11/10/23 13:51 solorio AdvReac Intermediate eczema Uncoded 11/10/23 13:51 Review of Systems Review of Systems: Pertinent positives per HPI. Patient denies any fever, chills, rash, headache, visual changes, dizziness, cough, runny nose, sore throat, shortness of breath, chest pain, palpitations, nausea, vomiting, diarrhea, constipation, or abdominal pain. 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
[2023-11-10 13:45] VITALS: BP 122/70; PULSE 76; RESP 16; TEMP 36.3; O2SAT 96
[2023-11-10 14:13] LABS: EDUAAPPEAR Cloudy; EDUABILI Negative; EDUABLOOD Trace; EDUACOLOR1 Yellow; EDUAGLUCOSE Negative; EDUAKETONE Negative; EDUALEUKO 3+; EDUANITRATE Positive; EDUAPROTEIN Trace; EDUASPGRAVITY 1.015; EDUAUROBILI 0.2
== END 2023-11-10 14:11 | disposition home or self-care (01) ==
PROVIDERS: Emergency Provider Nurse Practitioner Family; PCP Family Medicine
DX: L03.011 Cellulitis of right finger (principal); N30.01 Acute cystitis with hematuria; I25.10 Atherosclerotic heart disease of native coronary artery without angina pectoris; I11.0 Hypertensive heart disease with heart failure; I50.9 Heart failure, unspecified; E03.9 Hypothyroidism, unspecified; E78.5 Hyperlipidemia, unspecified; M15.9 Polyosteoarthritis, unspecified; M35.3 Polymyalgia rheumatica; Z86.2 Personal history of diseases of the blood and blood-forming organs and certain disorders involving the immune mechanism; Z95.5 Presence of coronary angioplasty implant and graft; Z98.42 Cataract extraction status, left eye; Z98.41 Cataract extraction status, right eye; Z79.82 Long term (current) use of aspirin
CPT/HCPCS: 36415; 80053; 81003; 84443; 85025; 87077; 87086; 87088; 87186; 99213; G0463

== ENCOUNTER 2023-11-10 14:20 | Outpatient (CLI) | payer MEDICARE, SELFPAY ==
[2023-11-10 18:23] LABS: Basophils Percent Auto 0.3 % (0.2-1.2); Eosinophils Absolute Auto 0.1 K/mm3 (0-0.3); Eosinophils Percent Auto 0.8 % (0-4.4); Hematocrit 35.7 % (37.0-47.0); Hemoglobin 11.5 g/dL (12.0-15.0); Immature Granulocyte Absolute 0.04 K/mm3 (0.00-0.031); Immature Granulocyte Percent A 0.3 % (0-0.5); Lymphocytes Absolute Auto 1.18 K/mm3 (0.9-3.2); Lymphocytes Percent Auto 10.1 % (18.3-44.2); Mean Corpuscular HGB Conc 32.2 g/dl (32-36); Mean Corpuscular Hemoglobin 34.2 pg (26-34); Mean Corpuscular Volume 106.3 fl (80-100); Mean Platelet Volume 11.5 fl (7.4-10.4); Monocytes Absolute Auto 0.9 K/mm3 (0.1-0.6); Monocytes Percent Auto 7.3 % (2.6-8.5); Neutrophils Absolute Auto 9.5 K/mm3 (1.3-6.7); Neutrophils Percent Auto 81.2 % (45.5-73.1); Platelet Count Result 209 k/mm3 (150-375); Red Blood Count 3.36 M/mm3 (4.2-5.4); Red Cell Distribution Width 13.7 % (11.5-14.5); White Blood Count 11.7 K/mm3 (4.5-10.0)
[2023-11-10 18:33] LABS: Alanine Aminotransferase 30 U/L (6-35); Albumin Level 4.4 g/dL (3.5-5.1); Alkaline Phosphatase 77 U/L (38-126); Anion Gap 8 mmol/L (4-12); Aspartate Amino Transferase 54 U/L (14-36); Bilirubin,Total 0.5 mg/dL (0.2-1.3); Blood Urea Nitrogen 37 mg/dL (7-17); Calcium 9.5 mg/dL (8.4-10.2); Carbon Dioxide 27 mmol/L (22-30); Chloride 103 mmol/L (98-107); Estimated Glomerular Filt Rate 39; Glucose 118 mg/dL (65-110); Potassium 4.7 mmol/L (3.4-5.0); Sodium 138 mmol/L (137-145)
== END 2023-11-10 14:21 | disposition home or self-care (01) ==
LOC: ANHGOSHLAB 14:23
PROVIDERS: PCP Family Medicine; Visit Provider Student in an Organized Health Care Education/Training Program
DX: E03.9 Hypothyroidism, unspecified (principal); N18.9 Chronic kidney disease, unspecified; I50.22 Chronic systolic (congestive) heart failure
CPT/HCPCS: 36415; 80053; 84443; 85025

== ENCOUNTER 2024-01-10 14:04 | Outpatient (CLI) | payer MEDICARE, SELFPAY ==
[2024-01-10 14:30] LABS: Basophils Percent Auto 0.4 % (0.2-1.2); Eosinophils Absolute Auto 0.3 K/mm3 (0-0.3); Eosinophils Percent Auto 2.7 % (0-4.4); Hematocrit 34.7 % (37.0-47.0); Hemoglobin 10.9 g/dL (12.0-15.0); Immature Granulocyte Absolute 0.04 K/mm3 (0.00-0.031); Immature Granulocyte Percent A 0.4 % (0-0.5); Lymphocytes Absolute Auto 2.07 K/mm3 (0.9-3.2); Lymphocytes Percent Auto 21.5 % (18.3-44.2); Mean Corpuscular HGB Conc 31.4 g/dl (32-36); Mean Corpuscular Hemoglobin 32.9 pg (26-34); Mean Corpuscular Volume 104.8 fl (80-100); Mean Platelet Volume 11.1 fl (7.4-10.4); Monocytes Absolute Auto 1.2 K/mm3 (0.1-0.6); Monocytes Percent Auto 12.2 % (2.6-8.5); Neutrophils Percent Auto 62.8 % (45.5-73.1); Platelet Count Result 196 k/mm3 (150-375); Red Blood Count 3.31 M/mm3 (4.2-5.4); Red Cell Distribution Width 15.4 % (11.5-14.5); White Blood Count 9.6 K/mm3 (4.5-10.0)
[2024-01-10 16:41] LABS: Alanine Aminotransferase 28 U/L (6-35); Albumin Level 4.5 g/dL (3.5-5.1); Alkaline Phosphatase 70 U/L (38-126); Anion Gap 9 mmol/L (4-12); Aspartate Amino Transferase 33 U/L (14-36); Bilirubin,Total 0.6 mg/dL (0.2-1.3); Blood Urea Nitrogen 27 mg/dL (7-17); Calcium 9.1 mg/dL (8.4-10.2); Carbon Dioxide 24 mmol/L (22-30); Chloride 106 mmol/L (98-107); Estimated Glomerular Filt Rate 42; Glucose 98 mg/dL (65-110); Potassium 4.4 mmol/L (3.4-5.0); Sodium 139 mmol/L (137-145)
[2024-01-10 17:12] LABS: Carcinoembryonic Antigen 2.6 ng/mL (0.0-3.0)
== END 2024-01-10 14:05 | disposition home or self-care (01) ==
PROVIDERS: PCP Family Medicine; Visit Provider Internal Medicine Hematology & Oncology
DX: C18.2 Malignant neoplasm of ascending colon (principal)
CPT/HCPCS: 36415; 80053; 82378; 85025

== ENCOUNTER 2024-01-22 10:23 | Outpatient (CLI) | payer MEDICARE, SELFPAY ==
[2024-01-22 12:08] LABS: Iron 125 ug/dL (37-170)
[2024-01-22 12:10] LABS: Add Urine Microscopic? YES; Appearance Urine Clear (Clear); Bacteria Urine 4+ /hpf; Bilirubin Urine Negative (Negative); Blood Urine Negative (Negative); Color Urine Yellow (Yellow); Glucose Urine UA Negative (Negative); Ketones Urine Negative (Negative); Leukocyte Esterase Ur 2+ LEU/UL (Negative); Nitrate Urine Positive (Negative); Non Pathogenic Casts 0-2; Protein Urine Negative (Negative); RBC Urine 0-2 /hpf (0-2); Specific Grav Ur 1.019 (1.001-1.035); Squamous Epithelial Cell Urine None Seen /hpf (Few); Urobilinogen Urine 0.2 mg/dL (<2.0); WBC Urine 21-50 /hpf (0-3); pH Urine 6.5 (5.0-9.0)
[2024-01-22 12:17] LABS: Percent Iron Saturation 36 % (20-50)
== END 2024-01-22 10:24 | disposition home or self-care (01) ==
LOC: ANHLAB 10:26
PROVIDERS: PCP Family Medicine; Visit Provider Internal Medicine Hematology & Oncology
DX: D64.9 Anemia, unspecified (principal); R30.0 Dysuria
CPT/HCPCS: 36415; 81001; 82607; 82728; 83540; 83550

== ENCOUNTER 2024-02-05 07:45 | Inpatient (IN) | payer MEDICARE, SELFPAY ==
[2024-02-05] VITALS (36 sets, daily range): BP systolic 102–156; BP diastolic 49–76; PULSE 70–96; RESP 17–31; TEMP 36.7–37.1; O2SAT 90–100; BMI 23.6
--- NOTE | ~2024-02-05 | XR_ITS ---
EXAMINATION: XR chest 1V portable DATE: 02/05/2024 09:07 INDICATION: Cough and shortness of breath TECHNIQUE: frontal view of the chest was obtained. COMPARISON: Chest radiograph dated 06/21/2023 FINDINGS: Mild elevation of the left hemidiaphragm. There are interstitial and airspace opacities in the bilate ral lower lung zones with blunting at the costophrenic angles latter consistent with small bilateral pleural effusions. No pneumothorax. Mild cardiomegaly. Median sternotomy wires and mediastinal surgic al clips are seen, likely from prior coronary artery bypass grafting. There is also coronary artery s tenting. Old bilateral rib fractures. Mild thoracic dextrocurvature with chronic T8 compression fract ure. IMPRESSION: 1. Interstitial and airspace opacities in bilateral lower lung zones consistent with small bilateral pleural effusions with superimposed mild pulmonary edema, pneumonia, atelectasis or some combination thereof. 2. Cardiomegaly. Reviewed, dictated and finalized at location A.
--- NOTE | 2024-02-05 08:07 | ECG_ITS ---
Test Date: 2024-02-05 08:17:30 Measurements Intervals Hope Rate: 87 P: 81 NC: 204 QRS: 12 QRSD: 97 T: 86 QT: 385 QTc: 464 Interpretive Statements SINUS RHYTHM POSSIBLE LEFT ATRIAL ENLARGEMENT [-0.1mV P WAVE IN V1/V2] NONSPECIFIC ST & T-WAVE ABNORMALITY No previous ECG available for comparison Electronically Signed On 02-05-2024 11:00:37 CDT by Vin Best M.D.
[2024-02-05 08:22] LABS: Basophils Absolute Auto 0.1 K/mm3 (0.0-0.1); Basophils Percent Auto 0.3 % (0.2-1.2); Eosinophils Absolute Auto 0.8 K/mm3 (0-0.3); Eosinophils Percent Auto 3.8 % (0-4.4); Hematocrit 33.9 % (37.0-47.0); Hemoglobin 11.1 g/dL (12.0-15.0); Immature Granulocyte Absolute 0.09 K/mm3 (0.00-0.031); Immature Granulocyte Percent A 0.4 % (0-0.5); Lymphocytes Absolute Auto 1.13 K/mm3 (0.9-3.2); Lymphocytes Percent Auto 5.4 % (18.3-44.2); Mean Corpuscular HGB Conc 32.7 g/dl (32-36); Mean Corpuscular Hemoglobin 34.4 pg (26-34); Mean Platelet Volume 11.6 fl (7.4-10.4); Monocytes Absolute Auto 2.2 K/mm3 (0.1-0.6); Monocytes Percent Auto 10.5 % (2.6-8.5); Neutrophils Absolute Auto 16.6 K/mm3 (1.3-6.7); Neutrophils Percent Auto 79.6 % (45.5-73.1); Platelet Count Result 189 k/mm3 (150-375); Red Blood Count 3.23 M/mm3 (4.2-5.4); Red Cell Distribution Width 14.9 % (11.5-14.5); White Blood Count 20.8 K/mm3 (4.5-10.0)
[2024-02-05] MEDS: IPRATROPIUM 0.5 MG/ALBUTEROL SULFATE 2.5 MG AMPUL.NEB 3 ML INHALATION ×3 (08:26→21:28)
[2024-02-05 08:31] LABS: INR 1.2; Prothrombin Time 15.5 Seconds (11.1-14.7)
[2024-02-05 08:32] LABS: Alveolar/Arterial O2 Gradient 80.7 mmHg; Base Excess ABG -3.6 mEq/l (+/-2.0); Carboxyhemoglobin 0.4 % THb (0-2.0); Fractional Inspired Oxygen 28 %; HCO3 ABG 19.8 mEq/l (22.0-26.0); Methemoglobin ABG 0.2 %THb (0-1.5); Oxygen Content ABG 15.4 %vol (16.0-22.0); Oxygen Saturation ABG 96.6 % (95.0-100.0); Oxyhemoglobin 95.7 % THb (90.0-100.0); PCO2 ABG 30.6 mmHg (35.0-45.0); PO2 ABG 82.8 mmHg (80.0-100.0); PO2 FiO2 Ratio Arterial Blood 2.96 %; Reduced Hemoglobin 3.7 %THb (0-5.0); Total Hemoglobin 11.4 g/dL (12.0-18.0); pH ABG 7.429 (7.350-7.450)
[2024-02-05 08:33] LABS: Alanine Aminotransferase 35 U/L (6-35); Albumin Level 4.3 g/dL (3.5-5.1); Alkaline Phosphatase 78 U/L (38-126); Anion Gap 11 mmol/L (4-12); Aspartate Amino Transferase 34 U/L (14-36); Bilirubin,Total 1.1 mg/dL (0.2-1.3); Blood Urea Nitrogen 28 mg/dL (7-17); Calcium 9.4 mg/dL (8.4-10.2); Carbon Dioxide 24 mmol/L (22-30); Chloride 105 mmol/L (98-107); Estimated CRCL calculation 33 ml/min; Estimated Glomerular Filt Rate 52; Glucose 131 mg/dL (65-110); Lactic Acid Reflex 1.6 mmol/L (0.7-2.0); Potassium 4.6 mmol/L (3.4-5.0); Sodium 140 mmol/L (137-145)
[2024-02-05 08:33] LABS: Device NASAL CANNULA; Modified Allen's Test Pass; Site Drawn LEFT RADIAL
[2024-02-05 08:42] LABS: NT Pro B Type Natriuretic Pept 2150 pg/mL (19.9-100)
[2024-02-05 08:59] LABS: Influenza A QL RT-PCR Negative (Negative); Influenza B QL RT-PCR Negative (Negative); RSV RNA, RT-PCR Negative (Negative); SARS-CoV-2 RNA PCR Negative (Negative)
--- NOTE | 2024-02-05 09:09 | ED.GENADULT ---
HPI - General Adult General Chief complaint: Upper Respiratory Infection Stated complaint: cough Time Seen by Provider: 02/05/24 07:50 Source: patient, RN notes reviewed and old records reviewed Mode of arrival: wheelchair Limitations: no limitations History of Present Illness HPI narrative: This is an 88 year old female with history of skin cancer, hypertension, CHF who presents for evaluation of shortness of breath. PAtient states she developed sudden onset cough, congestion and shortness of breath this morning at 3 am. She reports having coughing spells that cause her shortness of breath. She reports possible subjective fever but did not have fever here. She was found to have oxygen saturation 90% on room air on arrival and she was placed on 2 L NC. She has mild leg tenderness due to recent radation to areas of skin cancer on her legs. HEr oncologist is Dr. Armas. Denies sick contacts. Related Data Home Medications Medication Instructions Recorded Confirmed aspirin 81 mg tablet,delayed 81 mg PO DAILY 03/26/19 02/05/24 release (Adult Low Dose Aspirin) clopidogrel 75 mg tablet 75 mg PO QACDINNER 03/26/19 02/05/24 cranberry 500 mg capsule 1,000 mg PO BID 03/26/19 02/05/24 isosorbide mononitrate 30 mg 30 mg PO DAILY 03/26/19 02/05/24 tablet,extended release 24 hr multivitamin 1 tablet PO DAILY 03/26/19 02/05/24 nitroglycerin 0.4 mg sublingual 0.4 mg sublingual Q5M PRN Chest 03/26/19 02/05/24 tablet (Nitrostat) Pain calcium carbonate (Calcium 600) 600 mg PO DAILY 06/20/19 02/05/24 vitamin B complex (B 1 tablet PO DAILY 06/20/19 02/05/24 Complex-Vitamin B12 tablet) carvedilol 25 mg tablet 12.5 mg PO Q12H 01/27/20 02/05/24 lactobacillus combination no.9 4 4,000 mmu cells PO DAILY 07/08/21 02/05/24 billion cell capsule (Adult 50 Plus Probiotic) peg 400-propylene glycol 0.4 %-0.3 1 drp EACH EYE DAILY PRN Dry Eyes 07/08/21 02/05/24 % eye drops (Systane Ultra) psyllium husk 0.4 gram capsule 0.4 g PO PRN PRN Constipation 07/08/21 02/05/24 (Metamucil) loteprednol etabonate 0.5 % eye 1 drp EACH EYE BID 10/20/21 02/05/24 drops,suspension clobetasol 0.05 % topical cream 1 applic topical DAILY PRN Rash 08/08/22 02/05/24 bimatoprost 0.01 % eye drops 1 drp EACH EYE QPM 06/16/23 02/05/24 (Lumigan) gabapentin 300 mg capsule 300 mg PO BID 06/21/23 02/05/24 ipratropium bromide 42 mcg (0.06 2 spray intranasal TID PRN 06/21/23 02/05/24 %) nasal spray allergies dorzolamide 2 %-timolol 0.5 % (PF) 1 drp EACH EYE BID 09/11/23 02/05/24 eye drops niacin 500 mg tablet 500 mg PO TID 09/11/23 02/05/24 tacrolimus 0.1 % topical ointment 1 applic topical DAILY PRN Rash 09/11/23 02/05/24 brimonidine 0.025 % eye drops 1 drp EACH EYE QID PRN redness 11/10/23 02/05/24 (Lumify) furosemide 20 mg tablet 20 mg PO QAM 12/14/23 02/05/24 prednisone 5 mg tablet 5 mg PO .QOD 12/14/23 02/05/24 nitrofurantoin 100 mg PO Q12H 02/05/24 02/05/24 monohydrate/macrocrystals 100 mg capsule Allergies Allergy/AdvReac Type Severity Reaction Status Date / Time hydroxychloroquine Allergy Mild Rash Verified 02/05/24 07:58 adapalene [From Differin] AdvReac Intermediate eczema Verified 02/05/24 07:58 clindamycin AdvReac Intermediate cDiff Verified 02/05/24 07:58 duloxetine AdvReac Mild Diarrhea Verified 02/05/24 07:58 solorio AdvReac Intermediate eczema Uncoded 02/05/24 07:58 Review of Systems Review of Systems: All systems reviewed & are unremarkable except as noted in HPI and below Cardiovascular: Cardiovascular: Denies chest pain Respiratory: Respiratory: Reports chest congestion, Reports cough, Reports dyspnea and Reports wheezing PMFSH Past Medical History Medical History Anxiety 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 CHF (congestive heart failure) Chronic low back pain without sciatica Dyslipidemia, goal LDL below 100 Eczema Essential (primary) hypertension Generalized osteoarthritis of multiple sites History of Clostridioides difficile colitis 2018 History of colon cancer History of recurrent deep vein thrombosis (DVT) 2014 - left LE 2019 - left LE Hx of blood clots Hypothyroidism (acquired) Insomnia Neuropathy of lower extremity Polymyalgia rheumatica (~2018) Surgical History Surgical History History of back surgery 1990 for herniated disc L spine History of coronary artery stent placement 1999 History of eyelid surgery 03/2013 - b/l History of right hemicolectomy 05/2017 Hx of cataract extraction left - 11/2012 right - 12/2012 Family History Family History Mother Family history of cardiovascular disease Father Cerebrovascular accident Social History Social History Social History: Caffeine-coffee daily Smoking status: Never smoker Second hand tobacco smoke exposure: No Alcohol intake: never Substance use: never Substance use type: does not use Do You Feel Safe in your Home?: Yes Lack of Transportation: No Lack of Food: Never True Current Housing: I Have Housing Concerned About Future Housing: No Difficulty Paying Gas/Electric Bills: No Difficulty Paying for Meds: No Currently Unemployed: No Education: High School Diploma/GED Difficulty w/ Childcare or Family Care: No Living arrangements: alone Occupation/Education: retired Gender identity (if verbalized by the patient): Female Spiritual care concerns: No Agree to blood products: Yes Exam Const: General: alert Orientation/consciousness: patient oriented x3 HENMT: Head: normal to inspection Eyes: EOM: EOMs intact bilaterally Resp: Effort & Inspection: not labored, no retractions and no use of accessory muscles Auscultation: wheezes scattered wheezes Cardio: Rate: regular rate Rhythm: regular rhythm Heart sounds: no murmurs GI: GI Palp: Yes Soft to palpation, No Tenderness to palpation present (GI), No Guarding due to palpation present (GI) and No Rigid due to palpation Other: ventral incisional hernia Skin: General skin exam: normal color Rashes: no rashes Neuro: General: patient oriented x3, moves all extremities and CN's II-XI intact bilaterally Extrem: General: edema bilateral (+1) Psych: Mental Status: mental status grossly normal Affect: normal affect Course Reevaluation(s) Reevaluation #1: Patient states that she feels better after neb tx. I discussed labs and plan to admit. for treatment CHF vs pneumonia. Date: 02/05/24 Time: 10:00 Consultations Consultation #1: I Spoke with Dr. Townsend [facility]. HE accepts patient to floor but request troponin to be ordered. Date: 02/05/24 Time: 10:17 Vital Signs Vital signs: Vital Signs Temperature 98.7 F 02/05/24 07:52 Pulse Rate 95 02/05/24 07:52 Respiratory Rate 28 H 02/05/24 07:52 Blood Pressure 152/76 H 02/05/24 07:52 Pulse Oximetry 90 02/05/24 07:52 Oxygen Delivery Room Air 02/05/24 07:52 Temperature 98.4 F 02/05/24 14:00 Pulse Rate 75 02/05/24 17:04 Respiratory Rate 18 02/05/24 14:00 Blood Pressure 156/65 H 02/05/24 14:00 Pulse Oximetry 98 02/05/24 14:00 Oxygen Delivery Nasal Cannula 02/05/24 13:06 Oxygen Flow Rate 2 02/05/24 13:06 Medical Decision Making Differential Diagnosis Differential Diagnosis: CHF, pneumonia. viral URI, COPD, asthma Vital Signs Vital Signs: Vital Signs Temperature 98.7 F 02/05/24 07:52 Pulse Rate 95 02/05/24 07:52 Respiratory Rate 28 H 02/05/24 07:52 Blood Pressure 152/76 H 02/05/24 07:52 Pulse Oximetry 90 02/05/24 07:52 Oxygen Delivery Room Air 02/05/24 07:52 Temperature 98.4 F 02/05/24 14:00 Pulse Rate 75 02/05/24 17:04 Respiratory Rate 18 02/05/24 14:00 Blood Pressure 156/65 H 02/05/24 14:00 Pulse Oximetry 98 02/05/24 14:00 Oxygen Delivery Nasal Cannula 02/05/24 13:06 Oxygen Flow Rate 2 02/05/24 13:06 Lab Data Lab results reviewed: Yes I reviewed the patient's lab results. 02/05/24 08:16 02/05/24 08:16 Labs: Lab Results 02/05/24 02/05/24 02/05/24 Range/Units 08:15 08:16 08:24 WBC 20.8 H (4.5-10.0) K/mm3 RBC 3.23 L (4.2-5.4) M/mm3 Hgb 11.1 L (12.0-15.0) g/dL Hct 33.9 L (37.0-47.0) % MCV 105.0 H (80-100) fl MCH 34.4 H (26-34) pg MCHC 32.7 (32-36) g/dl RDW 14.9 H (11.5-14.5) % Plt Count 189 (150-375) k/mm3 MPV 11.6 H (7.4-10.4) fl Immature Gran % (Auto) 0.4 (0-0.5) % Neut % (Auto) 79.6 H (45.5-73.1) % Lymph % (Auto) 5.4 L (18.3-44.2) % [place] % (Auto) 10.5 H (2.6-8.5) % Eos % (Auto) 3.8 (0-4.4) % Baso % (Auto) 0.3 (0.2-1.2) % Lymph # (Auto) 1.13 (0.9-3.2) K/mm3 [place] # (Auto) 2.2 H (0.1-0.6) K/mm3 Eos # (Auto) 0.8 H (0-0.3) K/mm3 Baso # (Auto) 0.1 (0.0-0.1) K/mm3 Abs Immat Gran (auto) 0.09 H (0.00-0.031) K/mm3 Absolute Neuts (auto) 16.6 H (1.3-6.7) K/mm3 Absolute Nucleated RBC 0.000 (0.0-0.012) K/mm3 Nucleated RBC % 0.0 (0.0-0.2) % PT 15.5 H (11.1-14.7) Seconds INR 1.2 APTT 25.0 (22.3-36.8) Seconds Methemoglobin 0.2 (0-1.5) %THb Sodium 140 (137-145) mmol/L Potassium 4.6 (3.4-5.0) mmol/L Chloride 105 (98-107) mmol/L Carbon Dioxide 24 (22-30) mmol/L Anion Gap 11 (4-12) mmol/L BUN 28 H (7-17) mg/dL Creatinine 1.00 (0.7-1.0) mg/dL Estim Creat Clear Calc 33 ml/min Estimated GFR 52 L (59 - ) Glucose 131 H (65-110) mg/dL Lactic Acid 1.6 (0.7-2.0) mmol/L Calcium 9.4 (8.4-10.2) mg/dL Total Bilirubin 1.1 (0.2-1.3) mg/dL AST 34 (14-36) U/L ALT 35 (6-35) U/L Alkaline Phosphatase 78 (38-126) U/L Troponin I 0.044 H* (0.000-0.034) ng/mL NT-Pro-B Natriuret Pep 2150 H (19.9-100) pg/mL Total Protein 8.0 (6.3-8.2) g/dL Albumin 4.3 (3.5-5.1) g/dL Influenza A (RT-PCR) Negative (Negative) Influenza B (RT-PCR) Negative (Negative) RSV (RT-PCR) Negative (Negative) SARS-CoV-2 RNA (RT-PCR) Negative (Negative) ABG Data ABG results: 02/05/24 08:24 Puncture Site Left radial ABG pH 7.429 ABG pCO2 30.6 L ABG pO2 82.8 ABG PO2/FiO2 Ratio 2.96 ABG HCO3 19.8 L ABG O2 Saturation 96.6 ABG O2 Content 15.4 L ABG Base Excess -3.6 A-a Gradient 80.7 Oxyhemoglobin 95.7 Carboxyhemoglobin 0.4 Reduced Hemoglobin 3.7 Total Hemoglobin 11.4 L O2 Delivery Device Nasal cannula O2 Liters/Min 2.0 FiO2 28 Imaging Data Radiologist's impression: ITS Impressions Chest X-Ray 02/05/24 09:10 IMPRESSION: 1. Interstitial and airspace opacities in bilateral lower lung zones consistent with small bilateral pleural effusions with superimposed mild pulmonary edema, pneumonia, atelectasis or some combination thereof. 2. Cardiomegaly. ECG Data EKG #1: Attestation: I personally reviewed and interpreted this ECG as follows: ECG completion date: 02/05/24 ECG completion time: 08:17 EKG Interpretation: normal rate (87), sinus rhythm, non-specific ST changes and NL axis Critical Care Time Critical Care Time Critical Care Time: Yes Total Critical Care Time: 35 Discharge Plan Discharge Clinical Impression: CHF (congestive heart failure), Dyspnea, Pneumonia Patient Disposition: Still a Patient Condition: Stable
[2024-02-05] MEDS: FUROSEMIDE INJ 40 MG/4 ML VIAL IV PUSH (10:19)
[2024-02-05] MEDS: AZITHROMYCIN 500 MG/NS 250 ML 500 MG/250 ML BAG 250 MG IVPB (10:20)
--- NOTE | 2024-02-05 10:32 | PC.NURSE ---
heart healthy diet tray ordered
[2024-02-05 10:56] LABS: Troponin I 0.044 ng/mL (0.000-0.034)
--- NOTE | 2024-02-05 13:35 | P.HP_ITS ---
H&P: HPI History of Present Illness Date/Time: 02/05/24 13:35 Chief Complaint: Short of breath Narrative: This is an 88 year old female with history of skin cancer on topical tacrolimus, hypertension, severe systolic heart failure EF 20-25% on echocardiogram in June 2023, CKD stage 3, chronic anemia, present ED with chief complaint of shortness of breath. Patient has been not feeling well since yesterday, patient started have cough in the night, and developed shortness breath. Patient has orthopnea in the night. Patient denies fever, chills. Patient denies chest pain, palpitation, headache, abdomen pain, nausea vomiting diarrhea. Patient has a urinary urgency frequency. Patient has been treating UTI since last week with Macrobid. Patient came to ED for evaluation treatment. Upon arrival in ED, patient was afebrile, blood pressure stable, patient has tachypnea, hypoxemia, on 2 L oxygen, lab showed leukocytosis of 20,800, hemoglobin 11.1, on the baseline, elevated BUN creatinine ratio, 281.0, moderate hydro pointing 0.044, EKG shows sinus rhythm a 8 7, no specific ST or T-wave changes, chest x-ray showed interstitial airspace opacity bilateral lobes suggests pulmonary edema and pneumonia, cardiomegaly elevated BNP [id number] above baseline. Patient received and azithromycin, ceftriaxone in, patient also received furosemide 40 mg once, DuoNeb once in the ED. after received treatment, patient felt better, but still has significant dyspnea. 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 CHF (congestive heart failure) Chronic low back pain without sciatica Dyslipidemia, goal LDL below 100 Eczema Essential (primary) hypertension Generalized osteoarthritis of multiple sites History of Clostridioides difficile colitis 2018 History of colon cancer History of recurrent deep vein thrombosis (DVT) 2013 - left LE 2018 - left LE Hx of blood clots Hypothyroidism (acquired) Insomnia Neuropathy of lower extremity Polymyalgia rheumatica (~2019) Surgical History Surgical History History of back surgery 1990 for herniated disc L spine History of coronary artery stent placement 1999 History of eyelid surgery 03/2013 - b/l History of right hemicolectomy 05/2017 Hx of cataract extraction left - 11/2012 right - 12/2012 Family History Family History Mother Family history of cardiovascular disease Father Cerebrovascular accident Social History Social History Social History: Caffeine-coffee daily Smoking status: Never smoker Second hand tobacco smoke exposure: No Alcohol intake: never Substance use: never Substance use type: does not use Do You Feel Safe in your Home?: Yes Lack of Transportation: No Lack of Food: Never True Current Housing: I Have Housing Concerned About Future Housing: No Difficulty Paying Gas/Electric Bills: No Difficulty Paying for Meds: No Currently Unemployed: No Education: High School Diploma/GED Difficulty w/ Childcare or Family Care: No Living arrangements: alone Occupation/Education: retired Gender identity (if verbalized by the patient): Female Spiritual care concerns: No Agree to blood products: Yes Meds Home Medications and Allergies Home Medications Medication Instructions Recorded Confirmed Type aspirin 81 mg tablet,delayed 81 mg PO DAILY 03/26/19 02/05/24 History release (Adult Low Dose Aspirin) clopidogrel 75 mg tablet 75 mg PO QACDINNER 03/26/19 02/05/24 History cranberry 500 mg capsule 1,000 mg PO BID 03/26/19 02/05/24 History isosorbide mononitrate 30 mg 30 mg PO DAILY 03/26/19 02/05/24 History tablet,extended release 24 hr multivitamin 1 tablet PO DAILY 03/26/19 02/05/24 History nitroglycerin 0.4 mg sublingual 0.4 mg sublingual Q5M PRN Chest 03/26/19 02/05/24 History tablet (Nitrostat) Pain calcium carbonate (Calcium 600) 600 mg PO DAILY 06/20/19 02/05/24 History vitamin B complex (B 1 tablet PO DAILY 06/20/19 02/05/24 History Complex-Vitamin B12 tablet) carvedilol 25 mg tablet 12.5 mg PO Q12H 01/27/20 02/05/24 History lactobacillus combination no.9 4 4,000 mmu cells PO DAILY 07/08/21 02/05/24 History billion cell capsule (Adult 50 Plus Probiotic) peg 400-propylene glycol 0.4 %-0.3 1 drp EACH EYE DAILY PRN Dry Eyes 07/08/21 02/05/24 History % eye drops (Systane Ultra) psyllium husk 0.4 gram capsule 0.4 g PO PRN PRN Constipation 07/08/21 02/05/24 History (Metamucil) loteprednol etabonate 0.5 % eye 1 drp EACH EYE BID 10/20/21 02/05/24 History drops,suspension clobetasol 0.05 % topical cream 1 applic topical DAILY PRN Rash 08/08/22 02/05/24 History bimatoprost 0.01 % eye drops 1 drp EACH EYE QPM 06/16/23 02/05/24 History (Lumigan) spironolactone 25 mg tablet 25 mg PO QAM #20 tabs 06/18/23 02/05/24 Rx gabapentin 300 mg capsule 300 mg PO BID 06/21/23 02/05/24 History ipratropium bromide 42 mcg (0.06 2 spray intranasal TID PRN 06/21/23 02/05/24 History %) nasal spray allergies acetaminophen 325 mg tablet 650 mg PO Q6H PRN Pain Rated 5 Or 06/22/23 02/05/24 Rx Less #0 tabs risedronate 150 mg tablet (Actonel) 150 mg PO MONTHLY #15 tabs 08/07/23 02/05/24 Rx levothyroxine 75 mcg tablet 75 mcg PO DAILY #90 tabs 08/21/23 02/05/24 Rx dorzolamide 2 %-timolol 0.5 % (PF) 1 drp EACH EYE BID 09/11/23 02/05/24 History eye drops niacin 500 mg tablet 500 mg PO TID 09/11/23 02/05/24 History tacrolimus 0.1 % topical ointment 1 applic topical DAILY PRN Rash 09/11/23 02/05/24 History atorvastatin 10 mg tablet 10 mg PO QHS #90 tabs 09/28/23 02/05/24 Rx lisinopril 20 mg tablet 20 mg PO DAILY #90 tabs 10/17/23 02/05/24 Rx brimonidine 0.025 % eye drops 1 drp EACH EYE QID PRN redness 11/10/23 02/05/24 History (Lumify) furosemide 20 mg tablet 20 mg PO QAM 12/14/23 02/05/24 History prednisone 5 mg tablet 5 mg PO .QOD 12/14/23 02/05/24 History nitrofurantoin 100 mg PO Q12H 02/05/24 02/05/24 History monohydrate/macrocrystals 100 mg capsule Allergies Allergy/AdvReac Type Severity Reaction Status Date / Time hydroxychloroquine Allergy Mild Rash Verified 02/05/24 07:58 adapalene [From Differin] AdvReac Intermediate eczema Verified 02/05/24 07:58 clindamycin AdvReac Intermediate cDiff Verified 02/05/24 07:58 duloxetine AdvReac Mild Diarrhea Verified 02/05/24 07:58 solorio AdvReac Intermediate eczema Uncoded 02/05/24 07:58 Vital Signs Vital Signs - 24 hr 02/05/24 07:52 02/05/24 07:59 02/05/24 08:28 Temperature 98.7 F Pulse Rate 95 83 Respiratory Rate 28 H 20 Blood Pressure 152/76 H Pulse Oximetry 90 96 Oxygen Delivery Room Air Nasal Cannula Oxygen Flow Rate 2 02/05/24 08:39 02/05/24 07:55 02/05/24 08:00 Temperature Pulse Rate 86 96 86 Respiratory Rate 20 21 H 26 H Blood Pressure 152/76 H Pulse Oximetry 90 97 Oxygen Delivery Oxygen Flow Rate 02/05/24 08:01 02/05/24 08:15 02/05/24 08:30 Temperature Pulse Rate 88 84 84 Respiratory Rate 29 H 23 H 31 H Blood Pressure Pulse Oximetry 97 98 100 Oxygen Delivery Oxygen Flow Rate 02/05/24 08:32 02/05/24 08:45 02/05/24 09:00 Temperature Pulse Rate 83 85 83 Respiratory Rate 29 H 28 H 18 Blood Pressure 116/66 Pulse Oximetry 100 95 96 Oxygen Delivery Oxygen Flow Rate 02/05/24 09:01 02/05/24 09:15 02/05/24 09:30 Temperature Pulse Rate 83 81 84 Respiratory Rate 29 H 26 H 18 Blood Pressure 102/49 L Pulse Oximetry 99 95 Oxygen Delivery Oxygen Flow Rate 02/05/24 09:31 02/05/24 09:45 02/05/24 10:00 Temperature Pulse Rate 84 80 73 Respiratory Rate 17 20 28 H Blood Pressure 102/56 L Pulse Oximetry 100 98 Oxygen Delivery Oxygen Flow Rate 02/05/24 10:15 02/05/24 10:21 02/05/24 10:30 Temperature Pulse Rate 78 73 71 Respiratory Rate 20 29 H 24 H Blood Pressure 131/64 Pulse Oximetry 97 95 Oxygen Delivery Oxygen Flow Rate 02/05/24 10:31 02/05/24 10:45 02/05/24 11:00 Temperature Pulse Rate 75 74 82 Respiratory Rate 22 H 23 H 31 H Blood Pressure 126/53 L Pulse Oximetry 96 Oxygen Delivery Oxygen Flow Rate 02/05/24 11:01 02/05/24 11:15 02/05/24 12:20 Temperature Pulse Rate 85 79 77 Respiratory Rate 24 H 27 H 20 Blood Pressure 116/57 L 125/62 Pulse Oximetry 96 95 97 Oxygen Delivery Oxygen Flow Rate 02/05/24 13:06 02/05/24 13:06 02/05/24 13:25 Temperature Pulse Rate 72 86 Respiratory Rate 20 20 Blood Pressure Pulse Oximetry 95 Oxygen Delivery Nasal Cannula Oxygen Flow Rate 2 Exam Narrative: GENERAL: Pleasant, in no acute distress. Well-nourished. - EYES: EOMI. Anicteric. - HENT: Moist mucous membranes. - LUNGS: Crackles bilateral base, promi nent left lower lobe - CARDIOVASCULAR: Regular rate and rhyth m. No murmur. No JVD. - ABDOMEN: Soft, non-tender and non-dist ended. No palpable masses. - EXTREMITIES: No edema. Peripheral puls es 2+. Non-tender. - NEUROLOGIC: No focal neurological defi cits. CN II-XII grossly intact. - PSYCHIATRIC: Awake, Alert and oriented x 3. Appropriate mood and affect. - SKIN: No rashes or lesions. Warm. - LYMPH: No cervical lymphadenopathy. H&P: Results Labs Labs: Short CBC 02/05/24 Range/Units 08:16 WBC 20.8 H (4.5-10.0) K/mm3 Hgb 11.1 L (12.0-15.0) g/dL Hct 33.9 L (37.0-47.0) % Plt Count 189 (150-375) k/mm3 [facility] 02/05/24 08:16 Sodium 140 Potassium 4.6 Chloride 105 Carbon Dioxide 24 BUN 28 H Creatinine 1.00 Glucose 131 H Calcium 9.4 Cardiac Enzymes 02/05/24 Range/Units 08:15 Troponin I 0.044 H* (0.000-0.034) ng/mL Liver Function 02/05/24 Range/Units 08:16 Total Bilirubin 1.1 (0.2-1.3) mg/dL AST 34 (14-36) U/L ALT 35 (6-35) U/L Alkaline Phosphatase 78 (38-126) U/L Albumin 4.3 (3.5-5.1) g/dL Assessment and Plan Assessment and plan (1) CAD in [place] artery: Code(s): I25.10 - Atherosclerotic heart disease of [place] coronary artery without angina pectoris Status: Acute (2) Essential (primary) hypertension: Code(s): I10 - Essential (primary) hypertension Status: Acute (3) Hypothyroidism (acquired): Code(s): E03.9 - Hypothyroidism, unspecified Status: Acute (4) CHF (congestive heart failure): Qualifiers: Heart failure type: unspecified Heart failure chronicity: chronic Qualified Code(s): I50.9 - Heart failure, unspecified Code(s): I50.9 - Heart failure, unspecified Status: Acute (5) Multifocal pneumonia: Code(s): J18.9 - Pneumonia, unspecified organism Status: Acute (6) CKD (chronic kidney disease): Qualifiers: Chronic kidney disease stage: stage 3 (moderate) Chronic kidney disease stage 3 subtype: stage 3a (GFR 45-59) Qualified Code(s): N18.31 - Chronic kidney disease, stage 3a Code(s): N18.9 - Chronic kidney disease, unspecified Status: Acute (7) Acute on chronic systolic heart failure: Code(s): I50.23 - Acute on chronic systolic (congestive) heart failure Status: Acute Plan Multifocal pneumonia Patient has a prior diff cough with clear phlegm since yesterday night X-ray shows interstitial patchy few trace both lower lobe, Patient has leukocytosis 20,000 Suggesting multifocal pneumonia Patient received at the [facility] ceftriaxone in the ED, continue the antibiotics Acute on chronic systolic heart failure Patient has history of severe systolic heart failure, patient has sudden onset dyspnea in the night, patient has orthopnea And DVT BMP X-ray shows pulmonary congestion bilaterally, Exacerbation likely secondary to pneumonia Patient received furosemide 40 mg IV push once, Hold furosemide 20 mg daily p.o., start furosemide 20 mg b.i.d. IV push spironolactone 25 mg daily p.o. Follow-up input output Patient does not have AICD/pacemaker Repeat echocardiogram Consult production control scheduler for evaluation treatment Dyspnea, hypoxemia Likely secondary to pneumonia and CHF exacerbation Start O2 therapy p.r.n. with parameters Start DuoNeb p.r.n. O2 therapy p.r.n. to keep pulse ox above 94 Essential hypertension Continue lisinopril 20 mg daily p.o., carvedilol 12.5 mg b.i.d. p.o., Patient may benefit from Entresto, Consult production control scheduler for evaluation and management CAD Patient denies chest pain Marginal high troponin likely secondary to demand ischemia EKG shows sinus rhythm no be specific ST or T-wave changes Continue home medication Plavix 75 mg daily p.o., aspirin 81 mg daily p.o., Lipitor 10 mg daily p.o. isosorbide 30 mg daily p.o. Acquired hypothyroidism Continue Synthroid 75 mcg daily p.o. CKD stage 3 Stable Follow-up BMP Chronic anemia No obvious bleeding Follow-up CBC Patient may stay more than 2 midnights in the hospital based on patient's condition and past medical history Hospitalist MIPS Advance Care Plan I have confirmed that the patient's Advanced Care Plan is present, code status is documented, or surrogate decision maker is listed in patient medical record.: Yes Medication Reconciliation The patient is not eligible for med reconciliation; the patient is in a emergent medical situation where delaying treatment would jeopardize the patients health.: Yes
--- NOTE | 2024-02-05 14:55 | P.CONCA_ITS ---
Assessment and Plan Assessment and plan (1) Acute on chronic systolic heart failure: Code(s): I50.23 - Acute on chronic systolic (congestive) heart failure Status: Acute Assessment and Plan: She does have cardiomyopathy with EF 20-25% and BNP is elevated at 2150. However, she does not appear to be in decompensated heart failure clinically. I think her shortness of breath is primarily caused by pneumonia as she has leukocytosis and evidence of pneumonia on CXR, perhaps mild CHF * Will resume p.o. furosemide * Continue spironolactone, coreg * Lisinopril has not been resumed, would be a good time to shift her to Entresto. Will start after 36 hr CRISTIAN washout period. Hopefully she is able to afford this * We can also consider adding SGLT2i * Wean O2 as able * I don't think a repeat echo is necessary in this situation, so I am going to cancel the order for that (2) CKD (chronic kidney disease): Qualifiers: Chronic kidney disease stage: stage 3 (moderate) Chronic kidney disease stage 3 subtype: stage 3a (GFR 45-59) Qualified Code(s): N18.31 - Chronic kidney disease, stage 3a Code(s): N18.9 - Chronic kidney disease, unspecified Status: Acute Assessment and Plan: Stable. (3) CAD (coronary artery disease): Code(s): I25.10 - Atherosclerotic heart disease of [place] coronary artery without angina pectoris Status: Acute Assessment and Plan: This is stable - not reporting any anginal symptoms. Very mild troponin elevation does not represent ACS, most attributable to mild CHF, infection. Continue ASA, statin. (4) Multifocal pneumonia: Code(s): J18.9 - Pneumonia, unspecified organism Status: Acute Assessment and Plan: Abx and other management per hospitalist. History of Present Illness History of Present Illness Consult date/time: 02/05/24 14:55 Requesting physician: Lissa Najera MD Consult reason: congestive heart failure Reason For Visit: CHF, acute respiratory failure with hypoxia Narrative: Krystle Avila is an 87 year old female patient of Dr. Barboza'archie who has coronary artery disease and cardiomyopathy. She underwent interventional revascularization of her LAD a long time ago and unfortunately suffered repeated stenoses requiring surgery where she had a RICE to her LAD placed. Despite that, she had failure of her RICE graft and had another LAD intervention done and has been doing okay from a coronary standpoint since then. She has known cardiomyopathy with EF 20 - 25% on echo from June of 2023. She presents to the hospital now with a chief complaint of shortness of breath. She has been feeling poorly with malaise and cough but this morning developed shortness of breath. She denies any chest pain, edema, palpitations, orthopnea. She is feeling better now after receiving DuoNeb and IV furosemide. Review of Systems Review of Systems: All systems reviewed & are unremarkable except as noted in HPI and below PMFSH Past Medical History Medical History Anxiety Bullous pemphigoid CAD in [place] artery CHF (congestive heart failure) Chronic low back pain without sciatica Dyslipidemia, goal LDL below 100 Eczema Essential (primary) hypertension Generalized osteoarthritis of multiple sites History of Clostridioides difficile colitis 2018 History of colon cancer History of recurrent deep vein thrombosis (DVT) 2014 - left LE 2019 - left LE Hx of blood clots Hypothyroidism (acquired) Insomnia Neuropathy of lower extremity Polymyalgia rheumatica (~2018) Surgical History Surgical History History of back surgery 1990 for herniated disc L spine History of coronary artery stent placement 1999 History of eyelid surgery 03/2013 - b/l History of right hemicolectomy 05/2017 Hx of cataract extraction left - 11/2012 right - 12/2012 Family History Family History Mother Family history of cardiovascular disease Father Cerebrovascular accident Social History Social History Social History: Caffeine-coffee daily Smoking status: Never smoker Second hand tobacco smoke exposure: No Alcohol intake: never Substance use: never Substance use type: does not use Do You Feel Safe in your Home?: Yes Lack of Transportation: No Lack of Food: Never True Current Housing: I Have Housing Concerned About Future Housing: No Difficulty Paying Gas/Electric Bills: No Difficulty Paying for Meds: No Currently Unemployed: No Education: High School Diploma/GED Difficulty w/ Childcare or Family Care: No Living arrangements: alone Occupation/Education: retired Gender identity (if verbalized by the patient): Female Spiritual care concerns: No Agree to blood products: Yes Meds Home Medications and Allergies Home Medications Medication Instructions Recorded Confirmed Type aspirin 81 mg tablet,delayed 81 mg PO DAILY 03/26/19 02/05/24 History release (Adult Low Dose Aspirin) clopidogrel 75 mg tablet 75 mg PO QACDINNER 03/26/19 02/05/24 History cranberry 500 mg capsule 1,000 mg PO BID 03/26/19 02/05/24 History isosorbide mononitrate 30 mg 30 mg PO DAILY 03/26/19 02/05/24 History tablet,extended release 24 hr multivitamin 1 tablet PO DAILY 03/26/19 02/05/24 History nitroglycerin 0.4 mg sublingual 0.4 mg sublingual Q5M PRN Chest 03/26/19 02/05/24 History tablet (Nitrostat) Pain calcium carbonate (Calcium 600) 600 mg PO DAILY 06/20/19 02/05/24 History vitamin B complex (B 1 tablet PO DAILY 06/20/19 02/05/24 History Complex-Vitamin B12 tablet) carvedilol 25 mg tablet 12.5 mg PO Q12H 01/27/20 02/05/24 History lactobacillus combination no.9 4 4,000 mmu cells PO DAILY 07/08/21 02/05/24 History billion cell capsule (Adult 50 Plus Probiotic) peg 400-propylene glycol 0.4 %-0.3 1 drp EACH EYE DAILY PRN Dry Eyes 07/08/21 02/05/24 History % eye drops (Systane Ultra) psyllium husk 0.4 gram capsule 0.4 g PO PRN PRN Constipation 07/08/21 02/05/24 History (Metamucil) loteprednol etabonate 0.5 % eye 1 drp EACH EYE BID 10/20/21 02/05/24 History drops,suspension clobetasol 0.05 % topical cream 1 applic topical DAILY PRN Rash 08/08/22 02/05/24 History bimatoprost 0.01 % eye drops 1 drp EACH EYE QPM 06/16/23 02/05/24 History (Lumigan) spironolactone 25 mg tablet 25 mg PO QAM #20 tabs 06/18/23 02/05/24 Rx gabapentin 300 mg capsule 300 mg PO BID 06/21/23 02/05/24 History ipratropium bromide 42 mcg (0.06 2 spray intranasal TID PRN 06/21/23 02/05/24 History %) nasal spray allergies acetaminophen 325 mg tablet 650 mg PO Q6H PRN Pain Rated 5 Or 06/22/23 02/05/24 Rx Less #0 tabs risedronate 150 mg tablet (Actonel) 150 mg PO MONTHLY #15 tabs 08/07/23 02/05/24 Rx levothyroxine 75 mcg tablet 75 mcg PO DAILY #90 tabs 08/21/23 02/05/24 Rx dorzolamide 2 %-timolol 0.5 % (PF) 1 drp EACH EYE BID 09/11/23 02/05/24 History eye drops niacin 500 mg tablet 500 mg PO TID 09/11/23 02/05/24 History tacrolimus 0.1 % topical ointment 1 applic topical DAILY PRN Rash 09/11/23 02/05/24 History atorvastatin 10 mg tablet 10 mg PO QHS #90 tabs 09/28/23 02/05/24 Rx lisinopril 20 mg tablet 20 mg PO DAILY #90 tabs 10/17/23 02/05/24 Rx brimonidine 0.025 % eye drops 1 drp EACH EYE QID PRN redness 11/10/23 02/05/24 History (Lumify) furosemide 20 mg tablet 20 mg PO QAM 12/14/23 02/05/24 History prednisone 5 mg tablet 5 mg PO .QOD 12/14/23 02/05/24 History nitrofurantoin 100 mg PO Q12H 02/05/24 02/05/24 History monohydrate/macrocrystals 100 mg capsule Allergies Allergy/AdvReac Type Severity Reaction Status Date / Time hydroxychloroquine Allergy Mild Rash Verified 02/05/24 07:58 adapalene [From Differin] AdvReac Intermediate eczema Verified 02/05/24 07:58 clindamycin AdvReac Intermediate cDiff Verified 02/05/24 07:58 duloxetine AdvReac Mild Diarrhea Verified 02/05/24 07:58 solorio AdvReac Intermediate eczema Uncoded 02/05/24 07:58 Vital Signs Vital Signs - 24 hr 02/05/24 07:52 02/05/24 07:59 02/05/24 08:28 Temperature 37.1 C Pulse Rate 95 83 Respiratory Rate 28 H 20 Blood Pressure 152/76 H Pulse Oximetry 90 96 Oxygen Delivery Room Air Nasal Cannula Oxygen Flow Rate 2 02/05/24 08:39 02/05/24 07:55 02/05/24 08:00 Temperature Pulse Rate 86 96 86 Respiratory Rate 20 21 H 26 H Blood Pressure 152/76 H Pulse Oximetry 90 97 Oxygen Delivery Oxygen Flow Rate 02/05/24 08:01 02/05/24 08:15 02/05/24 08:30 Temperature Pulse Rate 88 84 84 Respiratory Rate 29 H 23 H 31 H Blood Pressure Pulse Oximetry 97 98 100 Oxygen Delivery Oxygen Flow Rate 02/05/24 08:32 02/05/24 08:45 02/05/24 09:00 Temperature Pulse Rate 83 85 83 Respiratory Rate 29 H 28 H 18 Blood Pressure 116/66 Pulse Oximetry 100 95 96 Oxygen Delivery Oxygen Flow Rate 02/05/24 09:01 02/05/24 09:15 02/05/24 09:30 Temperature Pulse Rate 83 81 84 Respiratory Rate 29 H 26 H 18 Blood Pressure 102/49 L Pulse Oximetry 99 95 Oxygen Delivery Oxygen Flow Rate 02/05/24 09:31 02/05/24 09:45 02/05/24 10:00 Temperature Pulse Rate 84 80 73 Respiratory Rate 17 20 28 H Blood Pressure 102/56 L Pulse Oximetry 100 98 Oxygen Delivery Oxygen Flow Rate 02/05/24 10:15 02/05/24 10:21 02/05/24 10:30 Temperature Pulse Rate 78 73 71 Respiratory Rate 20 29 H 24 H Blood Pressure 131/64 Pulse Oximetry 97 95 Oxygen Delivery Oxygen Flow Rate 02/05/24 10:31 02/05/24 10:45 02/05/24 11:00 Temperature Pulse Rate 75 74 82 Respiratory Rate 22 H 23 H 31 H Blood Pressure 126/53 L Pulse Oximetry 96 Oxygen Delivery Oxygen Flow Rate 02/05/24 11:01 02/05/24 11:15 02/05/24 12:20 Temperature Pulse Rate 85 79 77 Respiratory Rate 24 H 27 H 20 Blood Pressure 116/57 L 125/62 Pulse Oximetry 96 95 97 Oxygen Delivery Oxygen Flow Rate 02/05/24 13:06 02/05/24 13:06 10/28/24 13:25 Temperature Pulse Rate 72 86 Respiratory Rate 20 20 Blood Pressure Pulse Oximetry 95 Oxygen Delivery Nasal Cannula Oxygen Flow Rate 2 02/05/24 14:00 Temperature 36.9 C Pulse Rate 75 Respiratory Rate 18 Blood Pressure 156/65 H Pulse Oximetry 98 Oxygen Delivery Oxygen Flow Rate Exam Const: General: comfortable, no acute distress, alert and awake Orientation/consciousness: patient oriented x3 HENMT: Head: normal to inspection Eyes: General: appearance normal, both eyes and all related structures Pupils: Equal, round and reactive pupils present Neck: Neck: normal visual inspection, supple and no JVD Carotids: normal carotid upstroke Resp: Effort & Inspection: normal respiratory effort Auscultation: crackles Cardio: Rate: regular rate Rhythm: regular rhythm Heart sounds: S1 normal heart sound present, S2 normal heart sound present and no murmurs GI: Auscultation: normal bowel sounds Skin: General skin exam: normal color Neuro: General: patient oriented x3 Cranial nerves: Yes Equal, round and reactive pupils present Extrem: General: normal to inspection Other: no edema Psych: Appearance: grossly normal Mental Status: mental status grossly normal Results Labs and Meds 02/05/24 08:16 02/05/24 08:16 Lab results: Cardiac Enzymes 02/05/24 02/05/24 Range/Units 08:15 08:16 AST 34 (14-36) U/L Troponin I 0.044 H* (0.000-0.034) ng/mL Coagulation 02/05/24 Range/Units 08:16 PT 15.5 H (11.1-14.7) Seconds APTT 25.0 (22.3-36.8) Seconds CBC 02/05/24 Range/Units 08:16 WBC 20.8 H (4.5-10.0) K/mm3 RBC 3.23 L (4.2-5.4) M/mm3 Hgb 11.1 L (12.0-15.0) g/dL Hct 33.9 L (37.0-47.0) % Plt Count 189 (150-375) k/mm3 Lymph # (Auto) 1.13 (0.9-3.2) K/mm3 [place] # (Auto) 2.2 H (0.1-0.6) K/mm3 Eos # (Auto) 0.8 H (0-0.3) K/mm3 Baso # (Auto) 0.1 (0.0-0.1) K/mm3 Comprehensive Metabolic Panel 02/05/24 Range/Units 08:16 Sodium 140 (137-145) mmol/L Potassium 4.6 (3.4-5.0) mmol/L Chloride 105 (98-107) mmol/L Carbon Dioxide 24 (22-30) mmol/L BUN 28 H (7-17) mg/dL Creatinine 1.00 (0.7-1.0) mg/dL Glucose 131 H (65-110) mg/dL Calcium 9.4 (8.4-10.2) mg/dL AST 34 (14-36) U/L ALT 35 (6-35) U/L Alkaline Phosphatase 78 (38-126) U/L Total Protein 8.0 (6.3-8.2) g/dL Albumin 4.3 (3.5-5.1) g/dL Intake and Output 02/04/24 02/05/24 02/05/24 23:59 07:59 15:59 Intake Total 300 Balance 300 Intake: IV 300 Azithromycin 500 mg/Ns 250 ml 250 500 mg In 250 ml @ 250 mls/hr IVPB ONCE STA Rx#:[id number] cefTRIAXone 1 GM/NS 50 ML 1 gm 50 In 50 ml @ 100 mls/hr IVPB ONCE STA Rx#:[id number] Patient Weight 02/05/24 23:59 Weight 68.3 kg
[2024-02-05 15:29] LABS: Bacteria Urine None Seen /hpf; Non Pathogenic Casts 0-2; RBC Urine 0-2 /hpf (0-2); Squamous Epithelial Cell Urine None Seen /hpf (Few); WBC Urine 0-5 /hpf (0-3)
[2024-02-05 15:44] LABS: Add Urine Microscopic? NO; Appearance Urine Clear (Clear); Bilirubin Urine Negative (Negative); Blood Urine Negative (Negative); Color Urine Yellow (Yellow); Glucose Urine UA Negative (Negative); Ketones Urine Negative (Negative); Leukocyte Esterase Ur Negative LEU/UL (Negative); Nitrate Urine Negative (Negative); Protein Urine Negative (Negative); Specific Grav Ur 1.008 (1.001-1.035); Urobilinogen Urine 0.2 mg/dL (<2.0)
[2024-02-05] MEDS: GABAPENTIN 300 MG CAPSULE PO (16:06)
[2024-02-05] MEDS: LOTEPREDNOL ETABONATE 0.5% OPH 5 ML BOTTLE 1 DROP EACH EYE (16:06)
[2024-02-05] MEDS: LATANOPROST 0.005% OP SOLN 2.5 ML BTL 1 DROP EACH EYE (16:06)
--- NOTE | 2024-02-05 18:49 | PC.NURSE ---
1235- This patient, Krystle Avila, was admitted to 3 Med Surg Room 332-02. Patient/family oriented to hospital policies and general routines including ID bracelet, bed and alarms, visiting hours, pain management, procedures, bathroom and other care routines, personal items, smoking policy, room service/diet, and visiting hours. Information on how to activate the Rapid Response Team has been discussed. Patient/Family are encouraged to report perceived risks to care and to ask questions if they do not understand what they are told or what they should do.
[2024-02-05] MEDS: carvediloL 12.5 MG TABLET PO (20:48)
[2024-02-05] MEDS: ATORVASTATIN 10 MG TABLET PO (20:49)
[2024-02-05] MEDS: CLOPIDOGREL BISULFATE 75 MG TABLET PO (20:49)
[2024-02-05] MEDS: DORZOLAMIDE/TIMOLOL OPHTH SOL 10 ML BOTTLE 1 DROP EACH EYE (20:54)
[2024-02-06] VITALS (21 sets, daily range): BP systolic 98–115; BP diastolic 49–56; PULSE 62–86; RESP 14–18; TEMP 36.6–36.8; O2SAT 93–100
[2024-02-06] MEDS: IPRATROPIUM 0.5 MG/ALBUTEROL SULFATE 2.5 MG AMPUL.NEB 3 ML INHALATION ×4 (02:30→20:36)
[2024-02-06] MEDS: LEVOTHYROXINE SODIUM 75 MCG TABLET PO (05:39)
[2024-02-06 07:58] LABS: Alanine Aminotransferase 28 U/L (6-35); Albumin Level 3.7 g/dL (3.5-5.1); Alkaline Phosphatase 84 U/L (38-126); Anion Gap 8 mmol/L (4-12); Aspartate Amino Transferase 27 U/L (14-36); Bilirubin,Total 0.8 mg/dL (0.2-1.3); Blood Urea Nitrogen 30 mg/dL (7-17); Calcium 8.9 mg/dL (8.4-10.2); Carbon Dioxide 28 mmol/L (22-30); Chloride 103 mmol/L (98-107); Estimated CRCL calculation 28 ml/min; Estimated Glomerular Filt Rate 42; Glucose 108 mg/dL (65-110); Potassium 4.3 mmol/L (3.4-5.0); Sodium 139 mmol/L (137-145)
[2024-02-06 08:01] LABS: Basophils Absolute Auto 0.1 K/mm3 (0.0-0.1); Basophils Percent Auto 0.5 % (0.2-1.2); Eosinophils Absolute Auto 0.8 K/mm3 (0-0.3); Eosinophils Percent Auto 6.3 % (0-4.4); Immature Granulocyte Absolute 0.07 K/mm3 (0.00-0.031); Immature Granulocyte Percent A 0.6 % (0-0.5); Lymphocytes Percent Auto 13.8 % (18.3-44.2); Mean Corpuscular HGB Conc 31.3 g/dl (32-36); Mean Corpuscular Hemoglobin 33.1 pg (26-34); Mean Platelet Volume 11.8 fl (7.4-10.4); Monocytes Absolute Auto 1.5 K/mm3 (0.1-0.6); Monocytes Percent Auto 12.4 % (2.6-8.5); Neutrophils Absolute Auto 8.2 K/mm3 (1.3-6.7); Neutrophils Percent Auto 66.4 % (45.5-73.1); Platelet Count Result 193 k/mm3 (150-375); Red Blood Count 3.02 M/mm3 (4.2-5.4); Red Cell Distribution Width 15.2 % (11.5-14.5); White Blood Count 12.3 K/mm3 (4.5-10.0)
--- NOTE | 2024-02-06 08:14 | PM.PNCARD ---
Progress Note: A&P Assessment and Plan (1) Acute on chronic systolic heart failure: Code(s): I50.23 - Acute on chronic systolic (congestive) heart failure Status: Acute Assessment and Plan: She does have cardiomyopathy with EF 20-25% and BNP is elevated at 2150. However, she does not appear to be in decompensated heart failure clinically. I think her shortness of breath is primarily caused by pneumonia as she has leukocytosis and evidence of pneumonia on CXR, perhaps mild CHF Continue p.o. furosemide 40mg. Would discharge on her usual home dose of 20mg daily. Continue spironolactone, coreg Entresto 12-13mg b.i.d starting tonight We can also consider adding SGLT2i Wean O2 as able Stable from a cardiac standpoint, cardiology will sign off. Call with questions. (2) CKD (chronic kidney disease): Qualifiers: Chronic kidney disease stage: stage 3 (moderate) Chronic kidney disease stage 3 subtype: stage 3a (GFR 45-59) Qualified Code(s): N18.31 - Chronic kidney disease, stage 3a Code(s): N18.9 - Chronic kidney disease, unspecified Status: Acute Assessment and Plan: Stable. (3) CAD (coronary artery disease): Code(s): I25.10 - Atherosclerotic heart disease of [place] coronary artery without angina pectoris Status: Acute Assessment and Plan: This is stable - not reporting any anginal symptoms. Very mild troponin elevation does not represent ACS, most attributable to mild CHF, infection. For reasons that are not clear a follow up troponin level was drawn and was 0.193 (previously 0.044). She denies any chest pain. Serial troponins were ordered by the hospitalist. Can check an EKG. Since she is asymptomatic there is no recommendation for further workup in this regard. Continue ASA, statin. (4) Multifocal pneumonia: Code(s): J18.9 - Pneumonia, unspecified organism Status: Acute Assessment and Plan: Abx and other management per hospitalist. Subjective Date/time seen: 02/06/24 08:14 Interval history: Cardiology follow up for CHF Date of service 02/06/2024: She feels well this morning and has no complaints. Shortness of breath has improved. She still has a cough but it is improving as well. Denies any chest pain. Review of Systems Review of Systems: All systems reviewed & are unremarkable except as noted in HPI and below Exam Const: General: comfortable, no acute distress, alert and awake Orientation/consciousness: patient oriented x3 HENMT: Head: normal to inspection Eyes: General: appearance normal, both eyes and all related structures Pupils: Equal, round and reactive pupils present Neck: Neck: normal visual inspection, supple and no JVD Carotids: normal carotid upstroke Resp: Effort & Inspection: normal respiratory effort Auscultation: clear to auscultation bilaterally Cardio: Rate: regular rate Rhythm: regular rhythm Heart sounds: S1 normal heart sound present, S2 normal heart sound present and no murmurs GI: Auscultation: normal bowel sounds Skin: General skin exam: normal color Neuro: General: patient oriented x3 Cranial nerves: Yes Equal, round and reactive pupils present Extrem: General: normal to inspection Other: no edema Psych: Appearance: grossly normal Mental Status: mental status grossly normal Objective Data Vital Signs Vital Signs: Vital Signs - 24 hr 02/05/24 08:28 02/05/24 08:39 02/05/24 08:15 Temperature Pulse Rate 83 86 84 Respiratory Rate 20 20 23 H Blood Pressure Pulse Oximetry 98 Oxygen Delivery Oxygen Flow Rate 02/05/24 08:30 02/05/24 08:32 02/05/24 08:45 Temperature Pulse Rate 84 83 85 Respiratory Rate 31 H 29 H 28 H Blood Pressure 116/66 Pulse Oximetry 100 100 95 Oxygen Delivery Oxygen Flow Rate 02/05/24 09:00 02/05/24 09:01 02/05/24 09:15 Temperature Pulse Rate 83 83 81 Respiratory Rate 18 29 H 26 H Blood Pressure 102/49 L Pulse Oximetry 96 99 Oxygen Delivery Oxygen Flow Rate 02/05/24 09:30 02/05/24 09:31 02/05/24 09:45 Temperature Pulse Rate 84 84 80 Respiratory Rate 18 17 20 Blood Pressure 102/56 L Pulse Oximetry 95 100 98 Oxygen Delivery Oxygen Flow Rate 02/05/24 10:00 02/05/24 10:15 02/05/24 10:21 Temperature Pulse Rate 73 78 73 Respiratory Rate 28 H 20 29 H Blood Pressure 131/64 Pulse Oximetry 97 95 Oxygen Delivery Oxygen Flow Rate 02/05/24 10:30 02/05/24 10:31 02/05/24 10:45 Temperature Pulse Rate 71 75 74 Respiratory Rate 24 H 22 H 23 H Blood Pressure 126/53 L Pulse Oximetry Oxygen Delivery Oxygen Flow Rate 02/05/24 11:00 02/05/24 11:01 02/05/24 11:15 Temperature Pulse Rate 82 85 79 Respiratory Rate 31 H 24 H 27 H Blood Pressure 116/57 L Pulse Oximetry 96 96 95 Oxygen Delivery Oxygen Flow Rate 02/05/24 12:20 02/05/24 13:06 02/05/24 13:06 Temperature Pulse Rate 77 72 Respiratory Rate 20 20 Blood Pressure 125/62 Pulse Oximetry 97 95 Oxygen Delivery Nasal Cannula Oxygen Flow Rate 2 02/05/24 13:25 02/05/24 14:00 02/05/24 17:04 Temperature 36.9 C Pulse Rate 86 75 75 Respiratory Rate 20 18 Blood Pressure 156/65 H Pulse Oximetry 98 Oxygen Delivery Oxygen Flow Rate 02/05/24 20:44 02/05/24 20:48 02/05/24 21:29 Temperature 36.7 C Pulse Rate 73 76 Respiratory Rate 18 Blood Pressure 116/49 L Pulse Oximetry 96 96 Oxygen Delivery Nasal Cannula Oxygen Flow Rate 2 02/05/24 21:29 02/05/24 20:00 02/06/24 02:32 Temperature Pulse Rate 70 80 Respiratory Rate 18 18 Blood Pressure Pulse Oximetry 96 Oxygen Delivery Nasal Cannula Oxygen Flow Rate 2 02/05/24 21:35 02/05/24 20:00 02/06/24 00:00 Temperature Pulse Rate 73 87 74 Respiratory Rate 18 Blood Pressure Pulse Oximetry Oxygen Delivery Oxygen Flow Rate 02/06/24 04:00 02/06/24 05:08 02/06/24 07:54 Temperature 36.7 C Pulse Rate 63 67 Respiratory Rate 16 Blood Pressure 109/54 L Pulse Oximetry 100 96 Oxygen Delivery Nasal Cannula Oxygen Flow Rate 2 02/06/24 07:54 Temperature Pulse Rate 84 Respiratory Rate 18 Blood Pressure Pulse Oximetry Oxygen Delivery Oxygen Flow Rate Intake/Output Intake/Output: Intake & Output 02/03/24 02/04/24 02/05/24 02/06/24 23:59 23:59 23:59 23:59 Intake Total 780 300 Balance 780 300 Meds/Results Medications: Active Medications Generic Name Dose Route Start Last Admin Trade Name Freq PRN Reason Stop Dose Admin Acetaminophen 650 mg 02/05/24 14:24 Acetaminophen 325 Mg Tablet PO Q6H PRN Pain Rated 5 Or Less Albuterol/Ipratropium 3 ml 02/05/24 14:00 02/06/24 07:51 Ipratropium 0.5 Mg/Albuterol Sulfate 2.5 Mg Ampul.Neb 3 Ml INHALATION 3 ml Q6HRT RIP Administration Albuterol/Ipratropium 3 ml 02/05/24 14:31 Ipratropium 0.5 Mg/Albuterol Sulfate 2.5 Mg Ampul.Neb 3 Ml INHALATION Q6HRT PRN SOB/WHEEZING Artificial Tears 1 drop 02/05/24 14:24 Artificial Tears Ophth Soln 15 Ml Bottle EACH EYE TID PRN Dry Eyes Aspirin 81 mg 02/06/24 09:00 Aspirin 81 Mg Enteric Tablet PO DAILY [facility] Atorvastatin Calcium 10 mg 02/05/24 21:00 02/05/24 20:49 Atorvastatin 10 Mg Tablet PO 10 mg QHS RIP Administration Calcium Carbonate 500 mg 02/06/24 09:00 Calcium Carbonate (Oscal) 500 Mg Tablet PO QAM [facility] Carvedilol 12.5 mg 02/05/24 21:00 02/05/24 20:48 Carvedilol 12.5 Mg Tablet PO 12.5 mg Q12HR [facility] Administration Clobetasol Propionate 1 applic 02/05/24 14:24 Clobetasol Propionate 0.05% Cream 15 Gm TOPICAL DAILY PRN Rash Clopidogrel Bisulfate 75 mg 02/05/24 21:00 02/05/24 20:49 Clopidogrel Bisulfate 75 Mg Tablet PO 75 mg HS RIP Administration Dorzolamide/Timolol 1 drop 02/05/24 21:00 02/05/24 20:54 Dorzolamide/Timolol Ophth [place] 10 Ml Bottle EACH EYE 1 drop Q12HR [facility] Administration Furosemide 40 mg 02/06/24 09:00 Furosemide 40 Mg Tablet PO DAILY RIP Gabapentin 300 mg 02/05/24 17:00 02/05/24 16:06 Gabapentin 300 Mg Capsule PO 300 mg BID RIP Administration Azithromycin 500 mg in 250 mls @ 250 mls/hr 02/06/24 09:00 Zithromax IVPB Q24H RIP Ceftriaxone Sodium 2 gm in 100 mls @ 200 mls/hr 02/06/24 09:00 Rocephin 2 Gm/Ns 100 Ml IVPB QAM [facility] Ipratropium [place] 2 spray 02/05/24 14:24 Ipratropium Nasal [place] 0.06% 15 Ml Bottle NASAL TID PRN allergies Isosorbide Mononitrate 30 mg 02/06/24 09:00 Isosorbide Mononitrate 30 Mg Tab.Er.24h PO DAILY [facility] Lactobacillus Acidophilus 1 tablet 02/06/24 09:00 Acidophilus/[place] Chewable Tablet PO 03/07/24 08:59 DAILY RIP Latanoprost 1 drop 02/05/24 18:00 02/05/24 16:06 Latanoprost 0.005% Op Soln 2.5 Ml Btl EACH EYE 1 drop QPM [facility] Administration Levothyroxine Sodium 75 mcg 02/06/24 06:30 02/06/24 05:39 Levothyroxine Sodium 75 Mcg Tablet PO 75 mcg DAILY@0630 [facility] Administration Loteprednol Etabonate 1 drop 02/05/24 17:00 02/05/24 16:06 Loteprednol Etabonate 0.5% Oph 5 Ml Bottle EACH EYE 1 drop BID RIP Administration Miscellaneous Information 1 each 02/05/24 00:01 Systane Nonformulary. Ok To Use Artificial Tears Prn Dryness? XX 03/06/24 00:00 CLARIFY [facility] Miscellaneous Information 1 each 02/05/24 00:01 Lumify (Prn Redness) Is Nonformulary. Hold While Hospitalized? XX 03/06/24 00:00 CLARIFY [facility] Miscellaneous Information 1 each 02/05/24 00:01 Lactobacillus Combination No.9 [Adult 50 Plus Probiotic] 4 Billion Cell Is Nonformulary. W XX 03/06/24 00:00 CLARIFY [facility] Miscellaneous Information 1 each 02/05/24 00:01 Niacin Tablets Tid Nonformulary. We Stock Niacin Er (Once Daily Dosing) XX 03/06/24 00:00 CLARIFY [facility] Multivitamins Therapeutic 1 tablet 02/06/24 09:00 Multivitamins Therapeutic Tab (*Bkc) PO DAILY [facility] Nitroglycerin 0.4 mg 02/05/24 14:24 Nitroglycerin Sl 0.4 Mg Tablet SUBLINGUAL Q5M PRN Chest Pain Non-Formulary Medication 1 drop 02/05/24 14:24 Brimonidine [Lumify] EACH EYE QID PRN redness Cranberry 500 Mg 1 each 02/05/24 14:41 Capsule XX 02/06/24 14:40 PRN PRN PROTOCOL Non-Formulary Medication 500 mg 02/05/24 17:00 Niacin PO 03/06/24 16:59 TID RIP Perflutren Lipid Microsphere 0 ml 02/05/24 14:31 Perflutren Lipid Microspheres 1.5 Ml Vial Diluted To 10 Ml Total Volume IV PUSH 02/08/24 14:32 ONCE PRN adequate visualization Protocol Spironolactone 25 mg 02/06/24 09:00 Spironolactone 25 Mg Tablet PO QAM RIP Tacrolimus 1 applic 02/05/24 14:24 Tacrolimus 0.1% 30 Gm Ointment TOPICAL DAILY PRN Rash Vitamin B Complex 1 cap 02/06/24 09:00 Vitamin B Complex Capsule PO DAILY [facility] Radiology Results: ITS Impressions Chest X-Ray 02/05/24 09:10 IMPRESSION: 1. Interstitial and airspace opacities in bilateral lower lung zones consistent with small bilateral pleural effusions with superimposed mild pulmonary edema, pneumonia, atelectasis or some combination thereof. 2. Cardiomegaly. Labs Labs: Laboratory Results - last 24 hr 02/05/24 02/05/24 02/05/24 08:15 08:16 08:24 WBC 20.8 H RBC 3.23 L Hgb 11.1 L Hct 33.9 L MCV 105.0 H MCH 34.4 H MCHC 32.7 RDW 14.9 H Plt Count 189 MPV 11.6 H Immature Gran % (Auto) 0.4 Neut % (Auto) 79.6 H Lymph % (Auto) 5.4 L [place] % (Auto) 10.5 H Eos % (Auto) 3.8 Baso % (Auto) 0.3 Lymph # (Auto) 1.13 [place] # (Auto) 2.2 H Eos # (Auto) 0.8 H Baso # (Auto) 0.1 Abs Immat Gran (auto) 0.09 H Absolute Neuts (auto) 16.6 H Absolute Nucleated RBC 0.000 Nucleated RBC % 0.0 PT 15.5 H INR 1.2 APTT 25.0 Puncture Site Left radial ABG pH 7.429 ABG pCO2 30.6 L ABG pO2 82.8 ABG PO2/FiO2 Ratio 2.96 ABG HCO3 19.8 L ABG O2 Saturation 96.6 ABG O2 Content 15.4 L ABG Base Excess -3.6 A-a Gradient 80.7 Oxyhemoglobin 95.7 Carboxyhemoglobin 0.4 Methemoglobin 0.2 Reduced Hemoglobin 3.7 Total Hemoglobin 11.4 L O2 Delivery Device Nasal cannula O2 Liters/Min 2.0 FiO2 28 Sodium 140 Potassium 4.6 Chloride 105 Carbon Dioxide 24 Anion Gap 11 BUN 28 H Creatinine 1.00 Estim Creat Clear Calc 33 Estimated GFR 52 L Glucose 131 H Lactic Acid 1.6 Calcium 9.4 Total Bilirubin 1.1 AST 34 ALT 35 Alkaline Phosphatase 78 Troponin I 0.044 H* NT-Pro-B Natriuret Pep 2150 H Total Protein 8.0 Albumin 4.3 Urine Color Urine Appearance Urine pH Ur Specific [place] Urine Protein Urine Glucose (UA) Urine Ketones Ur Blood (Man) Urine Nitrate Urine Bilirubin Urine Urobilinogen Ur Leukocyte Esterase Urine RBC Urine WBC Ur Squamous Epith Cells Urine Bacteria Urine Casts Influenza A (RT-PCR) Negative Influenza B (RT-PCR) Negative RSV (RT-PCR) Negative SARS-CoV-2 RNA (RT-PCR) Negative 02/05/24 02/06/24 15:16 07:39 WBC RBC Hgb Hct MCV MCH MCHC RDW Plt Count MPV Immature Gran % (Auto) Neut % (Auto) Lymph % (Auto) [place] % (Auto) Eos % (Auto) Baso % (Auto) Lymph # (Auto) [place] # (Auto) Eos # (Auto) Baso # (Auto) Abs Immat Gran (auto) Absolute Neuts (auto) Absolute Nucleated RBC Nucleated RBC % PT INR APTT Puncture Site ABG pH ABG pCO2 ABG pO2 ABG PO2/FiO2 Ratio ABG HCO3 ABG O2 Saturation ABG O2 Content ABG Base Excess A-a Gradient Oxyhemoglobin Carboxyhemoglobin Methemoglobin Reduced Hemoglobin Total Hemoglobin O2 Delivery Device O2 Liters/Min FiO2 Sodium 139 Potassium 4.3 Chloride 103 Carbon Dioxide 28 Anion Gap 8 BUN 30 H Creatinine 1.20 H Estim Creat Clear Calc 28 Estimated GFR 42 L Glucose 108 Lactic Acid Calcium 8.9 Total Bilirubin 0.8 AST 27 ALT 28 Alkaline Phosphatase 84 Troponin I NT-Pro-B Natriuret Pep Total Protein 7.0 Albumin 3.7 Urine Color Yellow Urine Appearance Clear Urine pH 6.0 Ur Specific [place] 1.008 Urine Protein Negative Urine Glucose (UA) Negative Urine Ketones Negative Ur Blood (Man) Negative Urine Nitrate Negative Urine Bilirubin Negative Urine Urobilinogen 0.2 Ur Leukocyte Esterase Negative Urine RBC 0-2 Urine WBC 0-5 Ur Squamous Epith Cells None seen Urine Bacteria None seen Urine Casts 0-2 Influenza A (RT-PCR) Influenza B (RT-PCR) RSV (RT-PCR) SARS-CoV-2 RNA (RT-PCR)
[2024-02-06 08:23] LABS: Anisocytosis 1+; Platelet Estimate Adequate (Adequate); Schistocytes None Seen
[2024-02-06 09:12] LABS: Troponin I 0.193 ng/mL (0.000-0.034)
--- NOTE | 2024-02-06 09:24 | ECG_ITS ---
Test Date: 2024-02-06 09:56:03 Measurements Intervals [place] Rate: 70 P: 54 RI: 200 QRS: -11 QRSD: 98 T: 78 QT: 408 QTc: 441 Interpretive Statements SINUS RHYTHM NONSPECIFIC ST & T-WAVE ABNORMALITY Compared to ECG 02/05/2024 08:17:30 No significant changes Electronically Signed On 02-06-2024 13:57:50 CDT by Inga Chu M.D.
[2024-02-06] MEDS: ARTIFICIAL TEARS OPHTH SOLN 15 ML BOTTLE 1 DROP EACH EYE (10:02)
[2024-02-06] MEDS: FUROSEMIDE 40 MG TABLET PO (10:02)
[2024-02-06] MEDS: CALCIUM CARBONATE (OSCAL) 500 MG TABLET PO (10:03)
[2024-02-06] MEDS: carvediloL 12.5 MG TABLET PO ×2 (10:03→20:51)
[2024-02-06] MEDS: ISOSORBIDE MONONITRATE 30 MG TAB.ER.24H PO (10:03)
[2024-02-06] MEDS: GABAPENTIN 300 MG CAPSULE PO ×2 (10:03→18:04)
[2024-02-06] MEDS: ACIDOPHILUS/BULGARICUS CHEWABLE TABLET 1 TABLET PO (10:03)
[2024-02-06] MEDS: MULTIVITAMINS THERAPEUTIC TAB (*BKC) 1 TABLET PO (10:03)
[2024-02-06] MEDS: VITAMIN B COMPLEX CAPSULE 1 CAP PO (10:03)
[2024-02-06] MEDS: SPIRONOLACTONE 25 MG TABLET PO (10:03)
[2024-02-06] MEDS: cefTRIAXone 2 GM/NS 100 ML 2 GM/100 ML BAG IVPB (10:04)
[2024-02-06] MEDS: LOTEPREDNOL ETABONATE 0.5% OPH 5 ML BOTTLE 1 DROP EACH EYE ×2 (10:04→18:05)
[2024-02-06] MEDS: ASPIRIN 81 MG ENTERIC TABLET PO (10:04)
[2024-02-06] MEDS: DORZOLAMIDE/TIMOLOL OPHTH SOL 10 ML BOTTLE 1 DROP EACH EYE ×2 (10:04→20:52)
[2024-02-06] MEDS: ENOXAPARIN 40 MG/0.4 ML SYRINGE SUB-Q (10:06)
[2024-02-06] MEDS: AZITHROMYCIN 500 MG/NS 250 ML 500 MG/250 ML BAG 250 MG IVPB (10:51)
[2024-02-06 11:19] LABS: Folic Acid > 20.0 ng/mL (2.76->20)
--- NOTE | 2024-02-06 15:44 | PM.IMPN ---
Progress Note: A&P Assessment and Plan (1) CAD in [place] artery: Code(s): I25.10 - Atherosclerotic heart disease of [place] coronary artery without angina pectoris Status: Acute (2) Essential (primary) hypertension: Code(s): I10 - Essential (primary) hypertension Status: Acute (3) Hypothyroidism (acquired): Code(s): E03.9 - Hypothyroidism, unspecified Status: Acute (4) CHF (congestive heart failure): Qualifiers: Heart failure chronicity: unspecified Code(s): I50.9 - Heart failure, unspecified Status: Acute (5) Multifocal pneumonia: Code(s): J18.9 - Pneumonia, unspecified organism Status: Acute (6) CKD (chronic kidney disease): Qualifiers: Chronic kidney disease stage: stage 3 (moderate) Chronic kidney disease stage 3 subtype: stage 3a (GFR 45-59) Qualified Code(s): N18.31 - Chronic kidney disease, stage 3a Code(s): N18.9 - Chronic kidney disease, unspecified Status: Acute (7) Acute on chronic systolic heart failure: Code(s): I50.23 - Acute on chronic systolic (congestive) heart failure Status: Acute Plan Multifocal pneumonia Patient has a prior diff cough with clear phlegm since yesterday night X-ray shows interstitial patchy few trace both lower lobe, Leukocytosis improving Day 2 Rocephin and Azithromycin f/u cultures Acute on chronic systolic heart failure Patient has history of severe systolic heart failure, patient has sudden onset dyspnea in the night, patient has orthopnea And DVT BMP X-ray shows pulmonary congestion bilaterally, Exacerbation likely secondary to pneumonia Patient received furosemide 40 mg IV push once, Hold furosemide 20 mg daily p.o., start furosemide 20 mg b.i.d. IV push spironolactone 25 mg daily p.o. ECHO from june EF 20-25%, repeat ECHO pending Starting Entresto tonight cardiology following Troponin elevated Troponin trending 0.17 down from 0.193 ECHO pendign Dyspnea, hypoxemia Likely secondary to pneumonia and CHF exacerbation now on room air continue monitorin g Essential hypertension Continue lisinopril 20 mg daily p.o., carvedilol 12.5 mg b.i.d. p.o., Patient may benefit from Entresto, Consult centrifugal casting machine tender for evaluation and management CAD Patient denies chest pain Marginal high troponin likely secondary to demand ischemia EKG shows sinus rhythm no be specific ST or T-wave changes Continue home medication Plavix 75 mg daily p.o., aspirin 81 mg daily p.o., Lipitor 10 mg daily p.o. isosorbide 30 mg daily p.o. Acquired hypothyroidism Continue Synthroid 75 mcg daily p.o. CKD stage 3 Stable Follow-up BMP Chronic anemia No obvious bleeding Follow-up CBC DVT prophylaxis on Sq lovenox Subjective Date/time seen: 02/06/24 15:44 Interval history: Patient comfortable at bedside B12 446, Folate >20 Review of Systems Review of Systems: ROS negative except above Exam Narrative: GENERAL: Pleasant, in no acute distress. Well-nourished. - EYES: EOMI. Anicteric. - HENT: Moist mucous membranes. - LUNGS: Crackles bilateral base, prominent left lower lobe - CARDIOVASCULAR: Regular rate and rhythm. No murmur. No JVD. - ABDOMEN: Soft, non-tender and non-distended. No palpable masses. - EXTREMITIES: No edema. Peripheral pulses 2+. Non-tender. - NEUROLOGIC: No focal neurological deficits. CN II-XII grossly intact. - PSYCHIATRIC: Awake, Alert and oriented x 3. Appropriate mood and affect. - SKIN: No rashes or lesions. Warm. - LYMPH: No cervical lymphadenopathy. Objective Data Vital Signs Vital Signs: Vital Signs - 24 hr 02/05/24 17:04 02/05/24 20:44 02/05/24 20:48 Temperature 98.1 F Pulse Rate 75 73 76 Respiratory Rate 18 Blood Pressure 116/49 L Pulse Oximetry 96 Oxygen Delivery Oxygen Flow Rate 02/05/24 21:29 02/05/24 21:29 02/05/24 20:00 Temperature Pulse Rate 70 Respiratory Rate 18 Blood Pressure Pulse Oximetry 96 96 Oxygen Delivery Nasal Cannula Nasal Cannula Oxygen Flow Rate 2 2 02/06/24 02:32 02/05/24 21:35 02/05/24 20:00 Temperature Pulse Rate 80 73 87 Respiratory Rate 18 18 Blood Pressure Pulse Oximetry Oxygen Delivery Oxygen Flow Rate 02/06/24 00:00 02/06/24 04:00 02/06/24 05:08 Temperature 98.1 F Pulse Rate 74 63 67 Respiratory Rate 16 Blood Pressure 109/54 L Pulse Oximetry 100 Oxygen Delivery Oxygen Flow Rate 02/06/24 07:54 02/06/24 07:54 02/06/24 10:03 Temperature Pulse Rate 84 86 Respiratory Rate 18 Blood Pressure Pulse Oximetry 96 Oxygen Delivery Nasal Cannula Oxygen Flow Rate 2 02/06/24 08:02 02/06/24 12:02 02/06/24 13:45 Temperature Pulse Rate 64 77 67 Respiratory Rate 18 Blood Pressure Pulse Oximetry Oxygen Delivery Oxygen Flow Rate 02/06/24 13:53 02/06/24 14:00 Temperature 97.8 F Pulse Rate 74 62 Respiratory Rate 18 14 Blood Pressure 108/52 L Pulse Oximetry 94 Oxygen Delivery Oxygen Flow Rate Intake/Output Intake/Output: Intake & Output 02/03/24 02/04/24 02/05/24 02/06/24 23:59 23:59 23:59 23:59 Intake Total 780 660 Balance 780 660 Meds/Results Medications: Active Medications Generic Name Dose Route Start Last Admin Trade Name Freq PRN Reason Stop Dose Admin Acetaminophen 650 mg 02/05/24 14:24 Acetaminophen 325 Mg Tablet PO Q6H PRN Pain Rated 5 Or Less Albuterol/Ipratropium 3 ml 02/05/24 14:00 02/06/24 13:43 Ipratropium 0.5 Mg/Albuterol Sulfate 2.5 Mg Ampul.Neb 3 Ml INHALATION 3 ml Q6HRT RIP Administration Albuterol/Ipratropium 3 ml 02/05/24 14:31 Ipratropium 0.5 Mg/Albuterol Sulfate 2.5 Mg Ampul.Neb 3 Ml INHALATION Q6HRT PRN SOB/WHEEZING Artificial Tears 1 drop 02/05/24 14:24 02/06/24 10:02 Artificial Tears Ophth Soln 15 Ml Bottle EACH EYE 1 drop TID PRN Administration Dry Eyes Aspirin 81 mg 02/06/24 09:00 02/06/24 10:04 Aspirin 81 Mg Enteric Tablet PO 81 mg DAILY RIP Administration Atorvastatin Calcium 10 mg 02/05/24 21:00 02/05/24 20:49 Atorvastatin 10 Mg Tablet PO 10 mg QHS RIP Administration Calcium Carbonate 500 mg 02/06/24 09:00 02/06/24 10:03 Calcium Carbonate (Oscal) 500 Mg Tablet PO 500 mg QAM RIP Administration Carvedilol 12.5 mg 02/05/24 21:00 02/06/24 10:03 Carvedilol 12.5 Mg Tablet PO 12.5 mg Q12HR RIP Administration Clobetasol Propionate 1 applic 02/05/24 14:24 Clobetasol Propionate 0.05% Cream 15 Gm TOPICAL DAILY PRN Rash Clopidogrel Bisulfate 75 mg 02/05/24 21:00 02/05/24 20:49 Clopidogrel Bisulfate 75 Mg Tablet PO 75 mg HS RIP Administration Dorzolamide/Timolol 1 drop 02/05/24 21:00 02/06/24 10:04 Dorzolamide/Timolol Ophth [place] 10 Ml Bottle EACH EYE 1 drop Q12HR RIP Administration Enoxaparin Sodium 40 mg 02/06/24 09:00 02/06/24 10:06 Enoxaparin 40 Mg/0.4 Ml Syringe SUB-Q 40 mg DAILY RIP Administration Furosemide 40 mg 02/06/24 09:00 02/06/24 10:02 Furosemide 40 Mg Tablet PO 40 mg DAILY RIP Administration Gabapentin 300 mg 02/05/24 17:00 02/06/24 10:03 Gabapentin 300 Mg Capsule PO 300 mg BID RIP Administration Azithromycin 500 mg in 250 mls @ 250 mls/hr 02/06/24 09:00 02/06/24 10:51 Zithromax IVPB 250 mls/hr Q24H RIP Administration Ceftriaxone Sodium 2 gm in 100 mls @ 200 mls/hr 02/06/24 09:00 02/06/24 10:04 Rocephin 2 Gm/Ns 100 Ml IVPB 200 mls/hr QAM RIP Administration Ipratropium [place] 2 spray 02/05/24 14:24 Ipratropium Nasal [place] 0.06% 15 Ml Bottle NASAL TID PRN allergies Isosorbide Mononitrate 30 mg 02/06/24 09:00 02/06/24 10:03 Isosorbide Mononitrate 30 Mg Tab.Er.24h PO 30 mg DAILY RIP Administration Lactobacillus Acidophilus 1 tablet 02/06/24 09:00 02/06/24 10:03 Acidophilus/[place] Chewable Tablet PO 03/07/24 08:59 1 tablet DAILY RIP Administration Latanoprost 1 drop 02/05/24 18:00 02/05/24 16:06 Latanoprost 0.005% Op Soln 2.5 Ml Btl EACH EYE 1 drop QPM RIP Administration Levothyroxine Sodium 75 mcg 02/06/24 06:30 02/06/24 05:39 Levothyroxine Sodium 75 Mcg Tablet PO 75 mcg DAILY@0630 [facility] Administration Loteprednol Etabonate 1 drop 02/05/24 17:00 02/06/24 10:04 Loteprednol Etabonate 0.5% Oph 5 Ml Bottle EACH EYE 1 drop BID RIP Administration Miscellaneous Information 1 each 02/05/24 00:01 Lumify (Prn Redness) Is Nonformulary. Hold While Hospitalized? XX 03/06/24 00:00 CLARIFY [facility] Miscellaneous Information 1 each 02/05/24 00:01 Niacin Tablets Tid Nonformulary. We Stock Niacin Er (Once Daily Dosing) XX 03/06/24 00:00 CLARIFY [facility] Multivitamins Therapeutic 1 tablet 02/06/24 09:00 02/06/24 10:03 Multivitamins Therapeutic Tab (*Bkc) PO 1 tablet DAILY RIP Administration Nitroglycerin 0.4 mg 02/05/24 14:24 Nitroglycerin Sl 0.4 Mg Tablet SUBLINGUAL Q5M PRN Chest Pain Non-Formulary Medication 1 drop 02/05/24 14:24 Brimonidine [Lumify] EACH EYE QID PRN redness Non-Formulary Medication 500 mg 02/05/24 17:00 Niacin PO 03/06/24 16:59 TID [facility] Perflutren Lipid Microsphere 0 ml 02/05/24 14:31 Perflutren Lipid Microspheres 1.5 Ml Vial Diluted To 10 Ml Total Volume IV PUSH 02/08/24 14:32 ONCE PRN adequate visualization Protocol Sacubitril/Valsartan 1 tab 02/06/24 21:00 Sacubitril/Valsartan 12-13 Mg Tablet PO Q12HR [facility] Spironolactone 25 mg 02/06/24 09:00 02/06/24 10:03 Spironolactone 25 Mg Tablet PO 25 mg QAM [facility] Administration Tacrolimus 1 applic 02/05/24 14:24 Tacrolimus 0.1% 30 Gm Ointment TOPICAL DAILY PRN Rash Vitamin B Complex 1 cap 02/06/24 09:00 02/06/24 10:03 Vitamin B Complex Capsule PO 1 cap DAILY RIP Administration Radiology Results: ITS Impressions Chest X-Ray 02/05/24 09:10 IMPRESSION: 1. Interstitial and airspace opacities in bilateral lower lung zones consistent with small bilateral pleural effusions with superimposed mild pulmonary edema, pneumonia, atelectasis or some combination thereof. 2. Cardiomegaly. Labs Labs: Laboratory Results - last 24 hr 02/05/24 02/06/24 02/06/24 15:16 07:39 09:28 WBC 12.3 H RBC 3.02 L Hgb 10.0 L Hct 32.0 L MCV 106.0 H MCH 33.1 MCHC 31.3 L RDW 15.2 H Plt Count 193 MPV 11.8 H Immature Gran % (Auto) 0.6 H Neut % (Auto) 66.4 Lymph % (Auto) 13.8 L [place] % (Auto) 12.4 H Eos % (Auto) 6.3 H Baso % (Auto) 0.5 Lymph # (Auto) 1.70 [place] # (Auto) 1.5 H Eos # (Auto) 0.8 H Baso # (Auto) 0.1 Abs Immat Gran (auto) 0.07 H Absolute Neuts (auto) 8.2 H Absolute Nucleated RBC 0.000 Nucleated RBC % 0.0 Platelet Estimate Adequate Anisocytosis 1+ Schistocytes None seen Sodium 139 Potassium 4.3 Chloride 103 Carbon Dioxide 28 Anion Gap 8 BUN 30 H Creatinine 1.20 H Estim Creat Clear Calc 28 Estimated GFR 42 L Glucose 108 Calcium 8.9 Total Bilirubin 0.8 AST 27 ALT 28 Alkaline Phosphatase 84 Troponin I 0.193 H* Total Protein 7.0 Albumin 3.7 Vitamin B12 446.0 Folate > 20.0 H Urine Color Yellow Urine Appearance Clear Urine pH 6.0 Ur Specific [place] 1.008 Urine Protein Negative Urine Glucose (UA) Negative Urine Ketones Negative Ur Blood (Man) Negative Urine Nitrate Negative Urine Bilirubin Negative Urine Urobilinogen 0.2 Ur Leukocyte Esterase Negative Urine RBC 0-2 Urine WBC 0-5 Ur Squamous Epith Cells None seen Urine Bacteria None seen Urine Casts 0-2 02/06/24 10:30 WBC RBC Hgb Hct MCV MCH MCHC RDW Plt Count MPV Immature Gran % (Auto) Neut % (Auto) Lymph % (Auto) [place] % (Auto) Eos % (Auto) Baso % (Auto) Lymph # (Auto) [place] # (Auto) Eos # (Auto) Baso # (Auto) Abs Immat Gran (auto) Absolute Neuts (auto) Absolute Nucleated RBC Nucleated RBC % Platelet Estimate Anisocytosis Schistocytes Sodium Potassium Chloride Carbon Dioxide Anion Gap BUN Creatinine Estim Creat Clear Calc Estimated GFR Glucose Calcium Total Bilirubin AST ALT Alkaline Phosphatase Troponin I 0.170 H* Total Protein Albumin Vitamin B12 Folate Urine Color Urine Appearance Urine pH Ur Specific [place] Urine Protein Urine Glucose (UA) Urine Ketones Ur Blood (Man) Urine Nitrate Urine Bilirubin Urine Urobilinogen Ur Leukocyte Esterase Urine RBC Urine WBC Ur Squamous Epith Cells Urine Bacteria Urine Casts
[2024-02-06] MEDS: predniSONE 5 MG TABLET PO (18:04)
[2024-02-06] MEDS: LATANOPROST 0.005% OP SOLN 2.5 ML BTL 1 DROP EACH EYE (18:05)
[2024-02-06] MEDS: ATORVASTATIN 10 MG TABLET PO (20:51)
[2024-02-06] MEDS: CLOPIDOGREL BISULFATE 75 MG TABLET PO (20:51)
[2024-02-06] MEDS: SACUBITRIL/VALSARTAN 12-13 MG TABLET 1 TAB PO (20:52)
[2024-02-06] MEDS: guaiFENesin/DEXTROMETHORPHAN 10 ML UDC PO (21:01)
[2024-02-07] VITALS (11 sets, daily range): BP systolic 110–128; BP diastolic 56–58; PULSE 61–77; RESP 16–20; TEMP 36.1–36.7; O2SAT 93–98
[2024-02-07] MEDS: IPRATROPIUM 0.5 MG/ALBUTEROL SULFATE 2.5 MG AMPUL.NEB 3 ML INHALATION ×3 (02:26→13:41)
[2024-02-07] MEDS: LEVOTHYROXINE SODIUM 75 MCG TABLET PO (05:47)
[2024-02-07 07:40] LABS: Basophils Absolute Auto 0.1 K/mm3 (0.0-0.1); Basophils Percent Auto 0.5 % (0.2-1.2); Eosinophils Absolute Auto 0.7 K/mm3 (0-0.3); Eosinophils Percent Auto 5.7 % (0-4.4); Hematocrit 32.2 % (37.0-47.0); Hemoglobin 10.3 g/dL (12.0-15.0); Immature Granulocyte Absolute 0.05 K/mm3 (0.00-0.031); Immature Granulocyte Percent A 0.4 % (0-0.5); Lymphocytes Absolute Auto 2.15 K/mm3 (0.9-3.2); Lymphocytes Percent Auto 18.7 % (18.3-44.2); Mean Corpuscular Hemoglobin 33.4 pg (26-34); Mean Corpuscular Volume 104.5 fl (80-100); Mean Platelet Volume 11.4 fl (7.4-10.4); Monocytes Absolute Auto 1.4 K/mm3 (0.1-0.6); Monocytes Percent Auto 12.2 % (2.6-8.5); Neutrophils Absolute Auto 7.2 K/mm3 (1.3-6.7); Neutrophils Percent Auto 62.5 % (45.5-73.1); Platelet Count Result 196 k/mm3 (150-375); Red Blood Count 3.08 M/mm3 (4.2-5.4); Red Cell Distribution Width 14.6 % (11.5-14.5); White Blood Count 11.5 K/mm3 (4.5-10.0)
[2024-02-07 07:59] LABS: Alanine Aminotransferase 25 U/L (6-35); Albumin Level 3.8 g/dL (3.5-5.1); Alkaline Phosphatase 66 U/L (38-126); Anion Gap 8 mmol/L (4-12); Aspartate Amino Transferase 24 U/L (14-36); Bilirubin,Total 0.4 mg/dL (0.2-1.3); Blood Urea Nitrogen 30 mg/dL (7-17); Calcium 9.1 mg/dL (8.4-10.2); Carbon Dioxide 28 mmol/L (22-30); Chloride 102 mmol/L (98-107); Estimated CRCL calculation 31 ml/min; Estimated Glomerular Filt Rate 47; Glucose 105 mg/dL (65-110); Magnesium 2.1 mg/dL (1.6-2.3); Potassium 4.1 mmol/L (3.4-5.0); Sodium 138 mmol/L (137-145)
[2024-02-07] MEDS: VITAMIN B COMPLEX CAPSULE 1 CAP PO (10:00)
[2024-02-07] MEDS: ACIDOPHILUS/BULGARICUS CHEWABLE TABLET 1 TABLET PO (10:00)
[2024-02-07] MEDS: carvediloL 12.5 MG TABLET PO (10:01)
[2024-02-07] MEDS: ASPIRIN 81 MG ENTERIC TABLET PO (10:01)
[2024-02-07] MEDS: FUROSEMIDE 40 MG TABLET PO (10:01)
[2024-02-07] MEDS: CALCIUM CARBONATE (OSCAL) 500 MG TABLET PO (10:02)
[2024-02-07] MEDS: ISOSORBIDE MONONITRATE 30 MG TAB.ER.24H PO (10:02)
[2024-02-07] MEDS: SPIRONOLACTONE 25 MG TABLET PO (10:02)
[2024-02-07] MEDS: MULTIVITAMINS THERAPEUTIC TAB (*BKC) 1 TABLET PO (10:03)
[2024-02-07] MEDS: AZITHROMYCIN 500 MG/NS 250 ML 500 MG/250 ML BAG 250 MG IVPB (10:03)
[2024-02-07] MEDS: SACUBITRIL/VALSARTAN 12-13 MG TABLET 1 TAB PO (10:04)
[2024-02-07] MEDS: ENOXAPARIN 40 MG/0.4 ML SYRINGE SUB-Q (10:04)
[2024-02-07] MEDS: DORZOLAMIDE/TIMOLOL OPHTH SOL 10 ML BOTTLE 1 DROP EACH EYE (10:06)
[2024-02-07] MEDS: LOTEPREDNOL ETABONATE 0.5% OPH 5 ML BOTTLE 1 DROP EACH EYE (10:06)
[2024-02-07] MEDS: cefTRIAXone 2 GM/NS 100 ML 2 GM/100 ML BAG IVPB (10:06)
[2024-02-07] MEDS: GABAPENTIN 300 MG CAPSULE PO (12:08)
[2024-02-07] MEDS: AZITHROMYCIN 250 MG TABLET 500 MG PO (12:08)
--- NOTE | 2024-02-07 15:11 | PM.DS ---
DS: Admitting Diagnosis Discharge Date 02/07/24 Admitting Diagnosis Short of breath DS: Discharge Diagnosis Discharge Diagnosis (1) Pneumonia: Code(s): J18.9 - Pneumonia, unspecified organism Status: Acute (2) Acute on chronic systolic heart failure: Code(s): I50.23 - Acute on chronic systolic (congestive) heart failure Status: Acute DS: Summary Hospital Course Hospital Course: This is an 88 year old female with history of skin cancer on topical tacrolimus, hypertension, severe systolic heart failure EF 20-25% on echocardiogram in June 2023, CKD stage 3, chronic anemia, present ED with chief complaint of shortness of breath. Patient has been not feeling well since yesterday, patient started have cough in the night, and developed shortness breath. Patient has orthopnea in the night. Patient denies fever, chills. Patient denies chest pain, palpitation, headache, abdomen pain, nausea vomiting diarrhea. Patient has a urinary urgency frequency. Patient has been treating UTI since last week with Macrobid. Patient came to ED for evaluation treatment. Upon arrival in ED, patient was afebrile, blood pressure stable, patient has tachypnea, hypoxemia, on 2 L oxygen, lab showed leukocytosis of 20,800, hemoglobin 11.1, on the baseline, elevated BUN creatinine ratio, 281.0, moderate hydro pointing 0.044, EKG shows sinus rhythm a 8 7, no specific ST or T-wave changes, chest x-ray showed interstitial airspace opacity bilateral lobes suggests pulmonary edema and pneumonia, cardiomegaly elevated BNP 16786 above baseline. Patient received and azithromycin, ceftriaxone in, patient also received furosemide 40 mg once, DuoNeb once in the ED. after received treatment, patient felt better, but still has significant dyspnea. Cardiology was consulted and patient was diurese with lasix 40mg, Lisniopril was discontinued and patient started on Entresto ovenright, she tolerated Entresto well today and was dsicharged on home lasix and will follow up with cardiology as instructed for further titration of cardiac meds CXR showed superimposed pnuemonia completed 2 days of Abx, and dischargd on 5 days more of Levaquin. F/u wtih PCP in 3-5 days F/u with cardiology as instructed. Progress Note: A&P Assessment and Plan (1) CAD in [place] artery: Code(s): I25.10 - Atherosclerotic heart disease of [place] coronary artery without angina pectoris Status: Acute (2) Essential (primary) hypertension: Code(s): I10 - Essential (primary) hypertension Status: Acute (3) Hypothyroidism (acquired): Code(s): E03.9 - Hypothyroidism, unspecified Status: Acute (4) CHF (congestive heart failure): Qualifiers: Heart failure chronicity: unspecified Code(s): I50.9 - Heart failure, unspecified Status: Acute (5) Multifocal pneumonia: Code(s): J18.9 - Pneumonia, unspecified organism Status: Acute (6) CKD (chronic kidney disease): Qualifiers: Chronic kidney disease stage: stage 3 (moderate) Chronic kidney disease stage 3 subtype: stage 3a (GFR 45-59) Qualified Code(s): N18.31 - Chronic kidney disease, stage 3a Code(s): N18.9 - Chronic kidney disease, unspecified Status: Acute (7) Acute on chronic systolic heart failure: Code(s): I50.23 - Acute on chronic systolic (congestive) heart failure Status: Acute Plan Multifocal pneumonia Patient has a prior diff cough with clear phlegm since yesterday night X-ray shows interstitial patchy few trace both lower lobe, Leukocytosis improving Day 2 Rocephin and Azithromycin, discharged on 5 more days of Levaquin F/u [facility] PCP in 3-5 days Cultures negative Acute on chronic systolic heart failure Patient has history of severe systolic heart failure, patient has sudden onset dyspnea in the night, patient has orthopnea And DVT BMP X-ray shows pulmonary congestion bilaterally, Exacerbation likely secondary to pneumonia Patient received furosemide 40 mg IV push once, Hold furosemide 20 mg daily p.o., start furosemide 20 mg b.i.d. IV push spironolactone 25 mg daily p.o. ECHO from june EF 20-25% Started adn tolerated Entresto overnight, continue entresto along withi other home meds F/u [facility] cardiology for further cardiac meds adjustment Troponin elevated Troponin trending 0.17 down from 0.193 likely demand per cards Dyspnea, hypoxemia Likely secondary to pneumonia and CHF exacerbation now on room air resovled Essential hypertension discontinued lisinopril., carvedilol 12.5 mg b.i.d. p.o., contiue entresto Consult mobile architect for evaluation and management CAD Patient denies chest pain Marginal high troponin likely secondary to demand ischemia EKG shows sinus rhythm no be specific ST or T-wave changes Continue home medication Plavix 75 mg daily p.o., aspirin 81 mg daily p.o., Lipitor 10 mg daily p.o. isosorbide 30 mg daily p.o. F/u with cards Acquired hypothyroidism Continue Synthroid 75 mcg daily p.o. CKD stage 3 Stable Follow-up BMP Chronic anemia No obvious bleeding hb 11.5 F/u with PCP in 3-5 days, f/u with cards as instructed Time Spent with Patient Time attestation: Total time spent providing and/or coordinating discharge services: DS: Data Data Completed and Pending Labs on day of discharge: Labs from last 24 hours 02/07/24 07:30 WBC 11.5 H RBC 3.08 L Hgb 10.3 L Hct 32.2 L MCV 104.5 H MCH 33.4 MCHC 32.0 RDW 14.6 H Plt Count 196 MPV 11.4 H Immature Gran % (Auto) 0.4 Neut % (Auto) 62.5 Lymph % (Auto) 18.7 [place] % (Auto) 12.2 H Eos % (Auto) 5.7 H Baso % (Auto) 0.5 Lymph # (Auto) 2.15 [place] # (Auto) 1.4 H Eos # (Auto) 0.7 H Baso # (Auto) 0.1 Abs Immat Gran (auto) 0.05 H Absolute Neuts (auto) 7.2 H Absolute Nucleated RBC 0.000 Nucleated RBC % 0.0 Sodium 138 Potassium 4.1 Chloride 102 Carbon Dioxide 28 Anion Gap 8 BUN 30 H Creatinine 1.10 H Estim Creat Clear Calc 31 Estimated GFR 47 L Glucose 105 Calcium 9.1 Magnesium 2.1 Total Bilirubin 0.4 AST 24 ALT 25 Alkaline Phosphatase 66 Total Protein 7.0 Albumin 3.8 Preliminary micro results at discharge 02/05/24 10:08 Blood Culture - Preliminary Blood 02/05/24 10:08 Blood Culture - Preliminary Blood Discharge Plan Discharge Attending physician on discharge: Anil Rodriguez Consulting providers: Shannan Dorman Discharging Clinician: Anil Rodriguez Anticipated Discharge Date/Time: 02/07/24 15:06 Patient Disposition: Home, Self-Care Activity: as tolerated Diet: heart healthy Discharge Instructions: F/u with PCP in 3-5 days F/u with cardiology as instructed Patient Instructions: Antibiotic Form Stand Alone Forms: General Discharge Information Follow-up/Referrals: Shannan Dorman APN-C [Advanced Practice Nurse] - (F/u with Cardiology as instructed ) Clemente Reese MD [Primary Care Provider] - (F/u with PCP in 3-5 days ) Discharge Medications: New Entresto 24-26 mg Tablet 1 tablet PO Q12HR 30 Days Qty: 60 1RF levofloxacin 500 mg tablet 500 mg PO DAILY 5 Days Qty: 5 0RF Continued Lumify 0.025 % Drops 1 drp EACH EYE QID PRN (Reason: redness) aspirin [Adult Low Dose Aspirin] 81 mg tablet,delayed release (DR/EC) 81 mg PO DAILY clopidogrel 75 mg tablet 75 mg PO QACDINNER Patient Comments: bedtime cranberry 500 mg capsule 1,000 mg PO BID isosorbide mononitrate 30 mg tablet extended release 24 hr 30 mg PO DAILY multivitamin Tablet 1 tablet PO DAILY nitroglycerin [Nitrostat] 0.4 mg tablet, sublingual 0.4 mg SUBLINGUAL Q5M PRN (Reason: Chest Pain) vitamin B complex [B Complex-Vitamin B12] Tablet 1 tablet PO DAILY calcium carbonate [Calcium 600] 600 mg calcium (1,500 mg) tablet 600 mg PO DAILY Adult 50 Plus Probiotic 4 billion cell capsule 4,000 mmu cells PO DAILY Rx Instructions: administer with a meal psyllium husk [Metamucil] 0.4 gram capsule 0.4 g PO PRN PRN (Reason: Constipation) Patient Comments: takes at bedtime Systane Ultra 0.4-0.3 % drops 1 drp EACH EYE DAILY PRN (Reason: Dry Eyes) clobetasol 0.05 % cream 1 applic topical DAILY PRN (Reason: Rash) dorzolamide-timolol (PF) 2-0.5 % drops 1 drp EACH EYE BID niacin 500 mg tablet 500 mg PO TID tacrolimus 0.1 % ointment 1 applic topical DAILY PRN (Reason: Rash) Rx Instructions: use 2 times a week for 6 weeks if needed prednisone 5 mg tablet 5 mg PO .QOD Rx Instructions: Every other day carvedilol 25 mg tablet 12.5 mg PO Q12H Patient Comments: 12 mg in the morning, 25 mg at bedtime Rx Instructions: must administer with a meal/food furosemide 20 mg tablet 20 mg PO QAM loteprednol etabonate 0.5 % drops,suspension 1 drp EACH EYE BID risedronate [Actonel] 150 mg tablet 150 mg PO MONTHLY Qty: 15 3RF Rx Instructions: administer at least 30 minutes before the first food or drink of the day other than water. [place] 0.01 % Drops 1 drp EACH EYE QPM spironolactone 25 mg Tablet 25 mg PO QAM Qty: 20 0RF gabapentin 300 mg capsule 300 mg PO BID ipratropium bromide 42 mcg (0.06 %) spray,non-aerosol 2 spray intranasal TID PRN (Reason: allergies) Rx Instructions: administer into each nostril acetaminophen 325 mg Tablet 650 mg PO Q6H PRN (Reason: Pain Rated 5 Or Less) Qty: 0 0RF nitrofurantoin monohyd/m-cryst 100 mg Capsule 100 mg PO Q12H Patient Comments: 2 pills (doses) left. Was taking for a UTI Rx Instructions: must administer with a meal/food. take twice a day for 7 days. levothyroxine 75 mcg tablet 75 mcg PO DAILY Qty: 90 1RF atorvastatin 10 mg tablet 10 mg PO QHS Qty: 90 1RF Discontinued lisinopril 20 mg tablet 20 mg PO DAILY Qty: 90 1RF Date of admission: 02/05/24 12:01 Primary Care Provider: Clemente Reese Admitting Provider: Ignacio Townsend Attending physician on admission: Ignacio Townsend Condition: Stable
== END 2024-02-07 16:48 | disposition home or self-care (01) | DRG 193 ==
LOC: ANHED 08:04 → ANH3MEDSUR 12:12
PROVIDERS: Hospitalist; Admitting Provider Internal Medicine; Emergency Provider General Practice; PCP Family Medicine; Visit Provider Internal Medicine
DX: J18.9 Pneumonia, unspecified organism (principal); I50.23 Acute on chronic systolic (congestive) heart failure; J96.01 Acute respiratory failure with hypoxia; I13.0 Hypertensive heart and chronic kidney disease with heart failure and stage 1 through stage 4 chronic kidney disease, or unspecified chronic kidney disease; I24.89 Other forms of acute ischemic heart disease; R35.0 Frequency of micturition; R39.15 Urgency of urination; I25.10 Atherosclerotic heart disease of native coronary artery without angina pectoris; E03.9 Hypothyroidism, unspecified; N18.31 Chronic kidney disease, stage 3a; D64.9 Anemia, unspecified; E78.5 Hyperlipidemia, unspecified; M15.9 Polyosteoarthritis, unspecified; G62.9 Polyneuropathy, unspecified; L30.9 Dermatitis, unspecified; Z85.828 Personal history of other malignant neoplasm of skin; Z99.3 Dependence on wheelchair; Z79.82 Long term (current) use of aspirin; Z86.718 Personal history of other venous thrombosis and embolism; Z85.038 Personal history of other malignant neoplasm of large intestine; Z95.5 Presence of coronary angioplasty implant and graft; Z98.42 Cataract extraction status, left eye; Z98.41 Cataract extraction status, right eye; Z20.822 Contact with and (suspected) exposure to COVID-19
CPT/HCPCS: 36415; 36600; 71045; 80053; 81003; 82375; 82607; 82746; 82805; 83050; 83605; 83735; 83880; 84484; 85018; 85025; 85610; 85730; 87040; 87637; 93005; 94640; 96365; 96367; 96375; 99285; A9270; J0456; J0696; J1650; J1940; J7512

== ENCOUNTER 2024-02-29 09:36 | Outpatient (CLI) | payer MEDICARE, SELFPAY ==
[2024-02-29 13:31] LABS: Anion Gap 7 mmol/L (4-12); Blood Urea Nitrogen 42 mg/dL (7-17); Calcium 9.6 mg/dL (8.4-10.2); Carbon Dioxide 26 mmol/L (22-30); Chloride 106 mmol/L (98-107); Estimated Glomerular Filt Rate 39; Glucose 113 mg/dL (65-110); Potassium 4.8 mmol/L (3.4-5.0); Sodium 139 mmol/L (137-145)
== END 2024-02-29 09:37 | disposition home or self-care (01) ==
LOC: ANHLAB 09:37
PROVIDERS: PCP Family Medicine; Visit Provider Internal Medicine Hematology & Oncology
DX: I50.22 Chronic systolic (congestive) heart failure (principal)
CPT/HCPCS: 36415; 80048

== ENCOUNTER 2024-03-11 10:46 | Outpatient (CLI) | payer MEDICARE, SELFPAY ==
[2024-03-11 14:10] LABS: Basophils Absolute Auto 0.1 K/mm3 (0.0-0.1); Basophils Percent Auto 0.5 % (0.2-1.2); Eosinophils Absolute Auto 0.3 K/mm3 (0-0.3); Eosinophils Percent Auto 2.3 % (0-4.4); Hematocrit 39.9 % (37.0-47.0); Hemoglobin 12.2 g/dL (12.0-15.0); Immature Granulocyte Absolute 0.03 K/mm3 (0.00-0.031); Immature Granulocyte Percent A 0.3 % (0-0.5); Lymphocytes Absolute Auto 1.75 K/mm3 (0.9-3.2); Lymphocytes Percent Auto 14.8 % (18.3-44.2); Mean Corpuscular HGB Conc 30.6 g/dl (32-36); Mean Corpuscular Hemoglobin 33.2 pg (26-34); Mean Corpuscular Volume 108.7 fl (80-100); Mean Platelet Volume 12.9 fl (7.4-10.4); Monocytes Absolute Auto 1.5 K/mm3 (0.1-0.6); Monocytes Percent Auto 12.5 % (2.6-8.5); Neutrophils Absolute Auto 8.2 K/mm3 (1.3-6.7); Neutrophils Percent Auto 69.6 % (45.5-73.1); Platelet Count Result 171 k/mm3 (150-375); Red Blood Count 3.67 M/mm3 (4.2-5.4); Red Cell Distribution Width 14.6 % (11.5-14.5); White Blood Count 11.8 K/mm3 (4.5-10.0)
[2024-03-11 14:29] LABS: Vitamin D 25 Hydroxy 41.7 ng/mL
[2024-03-11 14:34] LABS: Macrocytosis 1+ (NORMAL); Platelet Estimate Adequate (Adequate); Schistocytes None Seen
[2024-03-11 14:38] LABS: Hemoglobin A1C 6.1 % (<5.7)
[2024-03-11 15:10] LABS: Alanine Aminotransferase 24 U/L (6-35); Albumin Level 4.7 g/dL (3.5-5.1); Alkaline Phosphatase 72 U/L (38-126); Anion Gap 7 mmol/L (4-12); Aspartate Amino Transferase 69 U/L (14-36); Bilirubin,Total 0.8 mg/dL (0.2-1.3); Blood Urea Nitrogen 29 mg/dL (7-17); Calcium 10.2 mg/dL (8.4-10.2); Carbon Dioxide 28 mmol/L (22-30); Chloride 106 mmol/L (98-107); Cholesterol 152 mg/dL (0-200); Estimated Glomerular Filt Rate 42; Glucose 94 mg/dL (65-110); HDL Direct 56 mg/dL; Potassium 4.7 mmol/L (3.4-5.0); Sodium 141 mmol/L (137-145); Triglycerides 226 mg/dL (<150)
[2024-03-11 15:20] LABS: LDL Cholesterol Direct 37 mg/dL
== END 2024-03-11 10:47 | disposition home or self-care (01) ==
LOC: ANHGOSHLAB 10:47
PROVIDERS: PCP Family Medicine; Visit Provider Family Medicine
DX: I50.20 Unspecified systolic (congestive) heart failure (principal); E78.5 Hyperlipidemia, unspecified; I10 Essential (primary) hypertension; R73.03 Prediabetes; E53.8 Deficiency of other specified B group vitamins; E55.9 Vitamin D deficiency, unspecified
CPT/HCPCS: 36415; 80053; 80061; 82306; 82607; 83036; 84443; 85025

== ENCOUNTER 2024-09-09 10:34 | Outpatient (CLI) | payer MEDICARE, SELFPAY ==
--- OUTSIDE RECORDS SUMMARY | 2024-09-09 11:08 | XMS_ITS | Clinical Summary ---
Author Organization [facility] Address [address] [place] [address] Care Team Providers Care New Car Get Ready Mechanic Name Role Phone Gamal Reese MD Primary Care Provider Allergies Active Allergy Reactions Criticality Noted Date Comments Clindamycin Diarrhea High 06/23/2020 C-Diff Duloxetine Diarrhea Low 12/22/2020 Hydroxychloroquine Rash Medium 06/23/2020 Rash on stomach Unclassified Drug Rash Low 01/22/2024 [place] and defferin Medications calcium as carbonate (OS-SHLOMO) 1,250 mg (500 mg elemental) tablet Take 1 Tablet by mouth daily. Active multivitamin (DAILY-EDGAR) tablet Take 1 Tablet by mouth daily. 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 Active atorvastatin (LIPITOR) 10 mg tablet Take 10 mg by mouth daily. Active lisinopril (PRINIVIL) 20 mg tablet Take 20 mg by mouth daily. Active aspirin (ECOTRIN EC) 81 mg Tablet, Delayed Release (E.C.) Take 81 mg by mouth daily. Active levothyroxine 75 mcg tablet Take 75 mcg by mouth daily pulp mill supervisor. Active nitroglycerin (NITROSTAT) 0.4 mg Tablet, Sublingual Place 0.4 mg under tongue every 5 minutes as needed for Chest Pain. Active Cranberry 500 mg Capsule Take 500 mg by mouth 2 times daily. Active peg 400-propylene glycol (SYSTANE) 0.4-0.3 % solution Administer 1 Drop in both eyes 2 times daily . Active tobramycin-dexa methasone (TOBRADEX) 0.3-0.1 % suspension 1 Drop every 4 hours as needed . Active furosemide (LASIX) 40 mg tablet Take 40 mg by mouth daily Take .5 tab daily . Active clopidogrel (PLAVIX) 75 mg Tablet Take 75 mg by mouth daily. Active acetaminophen (TYLENOL) 325 mg Capsule Take by mouth. Acti ve predniSONE (DELTASONE) 10 mg tablet Take 5 mg by mouth daily. Active carvedilol (COREG) 25 mg tablet Take 25 mg by mouth 2 times daily with meals. Active spironolactone (ALDACTONE) 25 mg tablet Take 25 mg by mouth daily. Active diclofenac sodium (VOLTAREN) 1 % gel APPLY 2 GRAMS TO AFFECTED AREA 4 TIMES A DAY 0 Active tacrolimus (PROTOPIC) 0.1 % Ointment 0 Active cyanocobalamin (VITAMIN B-12) 100 mcg tablet Take 100 mcg by mouth daily. Active ALPRAZolam (XANAX) 0.25 mg tablet Take 0.25 mg by mouth nightly as needed for Anxiety. Active ipratropium bromide (ATROVENT) 42 mcg (0.06 %) [place], Non-Aerosol USE 2 SPRAYS INTRANASALLY THREE TIMES A DAY ADMINISTER INTO EACH NOSTRIL 2 Active gabapentin (NEURONTIN) 100 mg capsule TAKE 1 CAPSULE BY MOUTH 3 TO 4 TIMES DAILY 120 Capsule 1 3 Active bimatoprost (Lumigan) 0.01 % solution 1 Drop daily at bedtime. 2 Active dorzolamide-dominic oloL (COSOPT) 22.3-6.8 mg/mL solution Administer 1 Drop in both eyes. 2 Active risedronate (ACTONEL) 150 mg Tablet PLEASE SEE ATTACHED FOR DETAILED DIRECTIONS 4 Active psyllium (FIBER-CAP) 0.52 gram Capsule Take 0.52 Grams by mouth daily. 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 Acute deep vein thrombosis ( DVT) of distal vein of left lower extremity 05/25/2018 Malignant neoplasm of ascending colon 07/21/2017 Resolved Problems Problem Noted Date Diagnosed Date Resolved Date Colonic mass 07/21/2017 07/21/2017 Encounters Date Type Department Care Team Description 09/03/2024 External Device Data ST[facility] ABSTRACTION Provider, Abstract 08/29/2024 External Device Data [facility] ABSTRACTION Provider, Abstract 08/28/2024 External Device Data [facility] ABSTRACTION Provider, Abstract 08/27/2024 External Device Data [facility] ABSTRACTION Provider, Abstract 06/26/2024 External Device Data [facility] ABSTRACTION Provider, Abstract 06/26/2024 External Device Data [facility] ABSTRACTION Provider, Abstract 06/15/2024 External Device Data [facility] ABSTRACTION Provider, Abstract 06/14/2024 External Device Data [facility] ABSTRACTION Provider, Abstract from Last 3 Months Family History Medical History Relation Name Comments Stroke Father Heart Disease Mother Relation Name Status Comments Father Mother Social History Tobacco Use Types Packs/Day Years Used Date Smoking Tobacco: Never Tobacco Cessation:Counseling Given: Not Answered Alcohol Use Standard Drinks/Week Comments Yes 0 (1 standard drink = 0.6 oz pur e alcohol) Socially Comments No Sex and Gender Information Value Date Recorded Sex Assigned at Not on file Legal Sex Female 9:29 AM CDT Gender Identity Not on file Sexual Orientation Not on file Last Filed Vital Signs Vital Sign Reading Time Taken Comments Blood Pressure 96/55 01/22/2024 9:50 AM CDT Pulse 67 01/22/2024 9:50 AM CDT Temperature 36.6 C (97.8 F) 01/22/2024 9:50 AM CDT Respiratory Rate 16 01/22/2024 9:50 AM CDT Oxygen Saturation 95% 01/22/2024 9:50 AM CDT Inhaled Oxygen Concentration - - Weight 70.3 kg (155 lb) 01/22/2024 9:50 AM CDT Height 170.2 cm (5' 7) 07/13/2021 12:46 PM CDT Body Mass Index 24.28 07/13/2021 12:46 PM CDT Plan of Treatment Upcoming Encounters Date Type Department Care Team (Late st Contact Info) Description 01/29/2025 1:00 PM CDT Office Visit [facility]ology - [address] [facility] [address] [place] [address] Darryl Bingham MD [address] [facility] [address] [place] [address] Health Maintenance Due Date Last Done Comments DTAP/TDAP/TD VACCINES (1 - Tdap) 12/27/1954 PNEUMOCOCCAL VACCINE 50+ YEARS (1 of 2 - PCV) 12/27/18 55 ZOSTER VACCINE (1 of 2) 12/27/1985 RSV VACCINE (60+ or ) (1 - 1-dose 75+ series) 12/27/2010 INFLUENZA VACCINE (#1) 2023 OSTEOPOROSIS SCREENING 07/30/2028 07/31/2023 Insurance [employer] MEDICARE PART A AND B MEDICARE PART A AND B [employer] Care Teams New Car Get Ready Mechanic Relationship Specialty Start Date End Date Gamal Reese MD [address] [place] [address] PCP - General Family Practice 07/06/17
--- OUTSIDE RECORDS SUMMARY | 2024-09-09 11:08 | XMS_ITS | Continuity of Care Document ---
Author Organization [facility] Address [address] [place] [address] Phone Care Team Providers Care Rolling Chair Pusher Name Role Phone Lemuel Darby Unavailable Unavailable Procedures Procedure Date Office/outpatient Visit, Est Frames Deluxe BF Plastic Sphcyl Garland To +/-4d .12-2d Tax - Medical Eye Exam & Treatment No Script Refraction Office/outpatient Visit, Est Eye Exam & Treatment Visual Functional Status Assessed Refraction Advance Directives Directive Yes / No Effective Date File Name No Information Encounters Encounter Description Practice Location Reason(s) For Visit Diagnoses Date Provider Providers Copied on Encounter Office/outpat ient Visit, Est [facility], [id number] [place] [address] [address], [place], [place], [id number], [place] tel:[phone] [facility] No Information 2-201 0 Mehnaz Hdez. [address] , [address], [place], [address], [place]. tel:[phone] [facility], [address], [place], [place], [id number], [place] tel:[phone] [facility] No Information Jul- 0-200 9 [facility] . [address] [facility], [address], [place], [place], [address], [place]. tel:[phone] Referring Provider: Lemuel Kate [address], [place], [address]. tel:[phone] hamilton Provider: Rachelle Kimbrough, [address] [facility], [place], [place], [facility]. tel:[phone] [facility], [address], [place], [place], [address], tel:[phone] [facility] No Information Mar-0 2-200 9 Mehnaz Hdez. [address] [facility] , [address], [place], [place], [facility], [place]. tel:[phone] Office/outpat ient Visit, Est [facility], [address], [place], [place], [id number], tel:[phone] [facility] No Information Josue-1 1-200 8 Mehnaz Hdez. [address] [facility] , [address], [place], [place], [facility], . tel:[phone] [facility], [address], [place], [place], [id number], [place] tel:[phone] [facility] No Information Dec-0 5-200 7 Mehnaz Hdez. [facility] , [address], [place], [place], [facility], . tel:[phone] Family History Family Member Type Diagnosis Age At Onset No Information Payers Payer name Insurance type Covered constitution party ID Authoriza tion(s) [place] [id number] Social History Type Description Quantity Date Captured Comments Sex Female Smoking Status No Information Chief Complaint And Reason For Visit No Information Reason For Referral Reason For Referral No Information History Of Present Illness Encounter Date Complaint History Of Prese nt Illness No Information Functional Status Date Functional Assessmen t No Information Instructions Date Instruction Additional Infor mation No Information Assessments Type Assessment Date No Information Patient Care Teams Name Effective Dates (start - stop) Status Members No Information
--- OUTSIDE RECORDS SUMMARY | 2024-09-09 11:08 | XMS_ITS | Clinical Summary ---
Author Organization [facility] [address] Address [address] [place] [address] Care Team Providers Care Refrigerator Repair Technician Name Role Phone Gamal Reese MD Primary Care Provider Allergies Active Allergy Reactions Criticality Noted Date Comments Clindamycin Diarrhea High 06/23/2020 C-Diff Duloxetine Diarrhea Low 12/22/2020 Hydroxychloroquine Rash Medium 06/23/2020 Rash on stomach Medications calcium carbonate-fabian min D3 (CALCIUM 600 + D,3,) 600-125 mg-unit tablet 0 02/13/20 12 Active aspirin (ASPIR-81) 81 mg tablet take 1 Tablet by oral route every day 0 0 06/02/19 16 Active levothyroxine (SYNTHROID, LEVOTHROID) 75 mcg tablet Take 1 tablet (75 mcg total) by mouth daily 10/17/19 17 Active atorvastatin (LIPITOR) 10 mg tablet Take 1 tablet (10 mg total) by mouth daily 10/17/19 17 Active multivitamin with minerals tablet Take 1 tablet by mouth daily Active cranberry fruit concentrate 450 mg tablet Take by mouth. A ctive propylene glycoL 0.6 % drops Administer into affected eye(s). Active acidophilus-pe ctin, citrus 100 million cell-10 mg capsule Take by mouth daily. Active psyllium 0.52 gram capsule Take 1 capsule (0.52 g total) by mouth daily Active diclofenac sodium (VOLTAREN) 1 % gel APPLY 2 GRAMS TO AFFECTED AREA 4 TIMES A DAY 6 12/04/19 19 Active predniSONE (DELTASONE) 10 mg tablet Take 1 tablet (10 mg) by mouth every other day Active zolpidem (AMBIEN) 5 mg tabletIndicati ons:Sleep-Onse t Insomnia Take 5 mg by mouth nightly as needed for sleep Active tobramycin-dex AMETHasone 0.3-0.05 % drops,suspensi on Administer into affected eye(s) Active clobetasoL (OLUX) 0.05 % topical foam Apply topically 2 (two) times a day Active ALPRAZolam (XANAX) 0.25 mg tablet TAKE 1 TABLET BY MOUTH AT BEDTIME NEEDED FOR ANXIETY 12/22/19 21 Active gabapentin (NEURONTIN) 300 mg capsule Take 1 capsule (300 mg total) by mouth 2 (two) times a day 07/09/19 22 Active Lumigan 0.01 % ophthalmic drops 1 drop nightly 11/29/19 22 Active dorzolamide-ti moloL (COSOPT) 22.3-6.8 mg/mL ophthalmic solution INSTILL 1 DROP TWICE A DAY INTO BOTH EYES 11/16/19 22 Active nitrofurantoin monohydrate (MACROBID) 100 mg capsule TAKE 1 CAPSULE BY MOUTH EVERY 12 HOURS FOR 7 DAYS MUST ADMINISTER WITH A MEAL/FOOD 07/09/19 23 Active doxycycline 100 mg tablet Take 1 tablet/capsule (100 mg total) by mouth daily 12/16/19 23 Active tacrolimus (PROTOPIC) 0.1 % ointment Apply 0.01 Applications topically 2 (two) times a week Two times weekly for 6 months Active nitroglycerin (NITROSTAT) 0.4 mg SL tabletIndicati ons:Coronary artery disease involving [place] coronary artery of [place] heart without angina pectoris Use one tabletunder the tongue every 5 minutes as needed for chest pain,max 3 tablets 25 tablet 3 08/16/19 24 Active clopidogreL (PLAVIX) 75 mg tablet TAKE 1 TABLET BY MOUTH EVERY DAY 90 tablet 3 10/25/19 24 Active carvediloL (COREG) 25 mg tablet TAKE 1/2 TABLET BY MOUTH EVERY 12 HOURS 90 tablet 3 12/25/19 24 Active spironolactone (ALDACTONE) 25 mg tablet Take 1 tablet (25 mg total) by mouth daily 90 tablet 3 01/15/20 24 025 Active risedronate (ACTONEL) 150 mg tablet PLEASE SEE ATTACHED FOR DETAILED DIRECTIONS Active loteprednol (LOTEMAX) 0.5 % ophthalmic suspension 1 drop 2 (two) times a day 01/31/20 24 Active Entresto 24-26 mg tablet Take 1 tablet by mouth 2 (two) times a day 180 tablet 1 03/29/20 24 Active cyanocobalamin (Vitamin B-12) 1,000 mcg tabletIndicati ons:Prevention of Vitamin B12 Deficiency Take 1 tablet (1,000 mcg total) by mouth daily Active L. acidophilus-di g enz cmb 5 5-250 mg capsule Take by mouth Active isosorbide mononitrate ER (IMDUR) 30 mg 24 hr tablet TAKE 1 TABLET BY MOUTH EVERY DAY 90 tablet 3 09/04/19 25 Active furosemide (LASIX) 20 mg tablet TAKE 1 TABLET BY MOUTH EVERY DAY 90 tablet 2 09/04/19 25 Active isosorbide mononitrate ER (IMDUR) 30 mg 24 hr tablet TAKE 1 TABLET BY MOUTH EVERY DAY 90 tablet 3 08/28/19 24 025 Discontinued furosemide (LASIX) 20 mg tablet Take 1 tablet (20 mg total) by mouth daily 90 tablet 2 11/22/19 24 025 Discontinued Active Problems Problem Noted Date Diagnosed Date Dilated cardiomyopathy 06/10/2024 Chronic systolic congestive heart failure 2023 Angina pectoris, unspecified 08/16/2023 CAD (coronary artery disease) 10/26/2016 S/P CABG x 1 10/26/2016 S/P coronary artery stent placement 10/26/2016 Encounters Date Type Department Care Team Description 06/10/2024 10:45 AM APPLICATION COORDINATOR Office Visit [facility] Medical Group Cardiology at [address] [place] [address] Troy Barboza MD S/P CABG x 1 (Primary Dx); S/P coronary artery stent placement; Dilated cardiomyopathy (HCC) from Last 3 Months Medical History Medical History Date Comments Hypertension Hypertension Coronary artery disease Social History Tobacco Use Types Packs/Day Years Used Date Smoking Tobacco: Never Smokeless Tobacco: Never Tobacco Cessation:Counseling Given: Not Answered Alcohol Use Standard Drinks/Week Comments No 0 (1 standard drink = 0.6 oz pur e alcohol) Comments Unknown Sex and Gender Information Value Date Recorded Sex Assigned at Not on file Legal Sex Female 5:08 PM APPLICATION COORDINATOR Gender Identity Not on file Sexual Orientation Not on file Obstetrics History Last Filed Vital Signs Vital Sign Reading Time Taken Comments Blood Pressure 136/72 06/10/2024 10:37 AM APPLICATION COORDINATOR Pulse 63 06/10/2024 10:37 AM APPLICATION COORDINATOR Temperature - - Respiratory Rate 16 10/26/2016 11:43 AM CDT Oxygen Saturation 97% 06/10/2024 10:37 AM APPLICATION COORDINATOR Inhaled Oxygen Concentration - - Weight 69.9 kg (154 lb) 06/10/2024 10:37 AM APPLICATION COORDINATOR Height 170.2 cm (5' 7) 06/10/2024 10:37 AM APPLICATION COORDINATOR Body Mass Index 24.12 06/10/2024 10:37 AM APPLICATION COORDINATOR Plan of Treatment Health Maintenance Due Date Last Done Comments Depression Screening 1935 Fall Risk Assessment 1935 DTaP/Tdap/Td Vaccine (1 - Tdap) 12/27/1946 Hepatitis B Screening 12/27/1953 Pneumococcal vaccine 65+ (1 of 2 - PCV) 12/27/1954 Zoster Vaccine (1 of 2) 12/27/1985 Well Visit 65+ 12/27/2000 Influenza Vaccine (Season Ended) 2024 Insurance [employer] MEDICARE MEDICARE [employer] Care Teams Refrigerator Repair Technician Relationship Specialty Start Date End Date Gamal Reese MD PCP - General Family Practice 01/04/18
--- OUTSIDE RECORDS SUMMARY | 2024-09-09 11:08 | XMS_ITS | Clinical Summary ---
Author Organization [facility] Care Team Providers Care Dish Up Person Name Role Phone Unavailable Primary Care Provider Unavailabl e Social History Tobacco Use Types Packs/Day Years Used Date Smoking Tobacco: Never Assessed Comments Unknown Sex and Gender Information Value Date Recorded Sex Assigned at Not on file Legal Sex Female 7:35 PM CDT Gender Identity Not on file Sexual Orientation Not on file Plan of Treatment Not on file
--- OUTSIDE RECORDS SUMMARY | 2024-09-09 11:08 | XMS_ITS | Referral Summary ---
Author Organization [facility] [address] Address [address] [place] [address] Care Team Providers Care Network Administrator Name Role Phone Gamal Reese MD Primary Care Provider Encounters Date Type Department Care Team Description 06/10/2024 10:45 AM LIFE SUPPORT TECHNICIAN Office Visit [facility] Medical Group Cardiology at [address] [place] [address] Troy Barboza MD S/P CABG x 1 (Primary Dx); S/P coronary artery stent placement; Dilated cardiomyopathy (HCC) from Last 3 Months Allergies Active Allergy Reactions Criticality Noted Date [...] mg SL tabletIndicati ons:Coronary artery disease involving [place] coronary artery of [place] heart without angina pectoris Use one tabletunder [...] 10/26/2016 S/P coronary artery stent placement 10/26/2016 Social History Tobacco Use Types Packs/Day Years Used Date Smoking Tobacco: Never Smokeless Tobacco: Never Tobacco Cessation:Counseling Given: Not Answered Alcohol Use Standard Drinks/Week Comments No 0 (1 standard drink = 0.6 oz pur e alcohol) Comments Unknown Sex and Gender Information Value Date Recorded Sex Assigned at Not on file Legal Sex Female 5:08 PM LIFE SUPPORT TECHNICIAN Gender Identity Not on file Sexual Orientation Not on file Last Filed Vital Signs Vital Sign Reading Time Taken Comments Blood Pressure 136/72 06/10/2024 10:37 AM LIFE SUPPORT TECHNICIAN Pulse 63 06/10/2024 10:37 AM LIFE SUPPORT TECHNICIAN Temperature - - Respiratory Rate 16 10/26/2016 11:43 AM CDT Oxygen Saturation 97% 06/10/2024 10:37 AM LIFE SUPPORT TECHNICIAN Inhaled Oxygen Concentration - - Weight 69.9 kg (154 lb) 06/10/2024 10:37 AM LIFE SUPPORT TECHNICIAN Height 170.2 cm (5' 7) 06/10/2024 10:37 AM LIFE SUPPORT TECHNICIAN Body Mass Index 24.12 06/10/2024 10:37 AM LIFE SUPPORT TECHNICIAN Plan of Treatment Not on file Insurance [employer] MEDICARE MEDICARE [employer] Care Teams Network Administrator Relationship Specialty Start Date End Date Gamal Reese MD PCP - General Family Practice 01/04/18
--- OUTSIDE RECORDS SUMMARY | 2024-09-09 11:08 | XMS_ITS | Encounter Summary ---
Author Organization [facility] Address [address] 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 Maintenance Worker Name Role Phone Unavailable Primary Care Provider Unavailabl e Reason for Visit * Reason Comments Medication Refill Encounter Details Date Type Department Care Team (Late st Contact Info) Description 12/10/2022 Refill [facility] - Primary Care - [address] [place] [address] Cammy Gutierrez, [place], SARAH [address] [place] [address] Medication Refill Social History Tobacco Use Types Packs/Day Years Used Date Smoking Tobacco: Never Assessed Comments Unknown Sex and Gender Information Value Date Recorded Sex Assigned at Not on file Legal Sex Female 7:35 PM CDT Gender Identity Not on file Sexual Orientation Not on file documented as of this encounter Miscellaneous Notes * Telephone Encounter - Malu Dobbins RN - 12/13/2022 9:06 AM CDT Patient not associated with this office. documented in this encounter Plan of Treatment Not on file documented as of this encounter Visit Diagnoses Not on filedocumented in this encounter
[2024-09-09 14:45] LABS: Alanine Aminotransferase 29 U/L (6-35); Albumin Level 4.7 g/dL (3.5-5.1); Alkaline Phosphatase 56 U/L (38-126); Anion Gap 11 mmol/L (4-12); Aspartate Amino Transferase 64 U/L (14-36); Bilirubin,Total 0.6 mg/dL (0.2-1.3); Blood Urea Nitrogen 33 mg/dL (7-17); Carbon Dioxide 26 mmol/L (22-30); Chloride 105 mmol/L (98-107); Estimated Glomerular Filt Rate 39; Glucose 89 mg/dL (65-110); Potassium 4.8 mmol/L (3.4-5.0); Sodium 142 mmol/L (137-145)
== END 2024-09-09 10:35 | disposition home or self-care (01) ==
LOC: ANHGOSHLAB 10:34
PROVIDERS: PCP Family Medicine; Visit Provider Family Medicine
DX: N18.31 Chronic kidney disease, stage 3a (principal); R73.03 Prediabetes; E03.9 Hypothyroidism, unspecified
CPT/HCPCS: 36415; 80053; 83036; 84443

== ENCOUNTER 2024-09-17 09:51 | Outpatient (CLI) | payer MEDICARE, SELFPAY ==
--- NOTE | ~2024-09-17 | US_ITS ---
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 COMPARISON: 07/14/2023 FINDINGS: Again seen is a solid hypoechoic mass with lobular margins in the right submandibular gland which aristeo sures 2.0 x 1.6 x 1.6 cm which is increased in size compared with corresponding measurements on the p rior study of 1.6 x 1.4 x 1.5 cm. IMPRESSION: 1. Enlarging 2.0 cm mass in the right submandibular gland. Differential remains benign mixed tumor, W allyn tumor and primary malignancy. Would recommend ultrasound-guided biopsy for definitive patholog ic correlation. Reviewed, dictated and finalized at location A. IMPRESSION: 1. Enlarging 2.0 cm mass in the right submandibular gland. Differential remains benign mixed tumor, Erath tumor and primary malignancy. Would recommend ultr asound-guided biopsy for definitive pathologic correlation.
== END 2024-09-17 09:52 | disposition home or self-care (01) ==
LOC: GOSHIMG 09:52
PROVIDERS: PCP Family Medicine; Visit Provider Family Medicine
DX: K11.1 Hypertrophy of salivary gland (principal)
CPT/HCPCS: 76536

== ENCOUNTER 2025-01-22 09:57 | Outpatient (CLI) | payer MEDICARE, SELFPAY ==
[2025-01-22 10:11] LABS: Hematocrit 33.5 % (37.0-47.0); Hemoglobin 10.6 g/dL (12.0-15.0); Immature Granulocyte Percent A 0.3 % (0-0.5); Lymphocytes Absolute Auto 1.39 K/mm3 (0.9-3.2); Mean Corpuscular HGB Conc 31.6 g/dl (32-36); Mean Corpuscular Hemoglobin 33.5 pg (26-34); Mean Corpuscular Volume 106.0 fl (80-100); Nucleated Red Blood Cells Absolute Auto 0.000 K/mm3 (0.0-0.012); Nucleated Red Blood Cells Perc 0.0 % (0.0-0.2); Platelet Count Result 165 k/mm3 (150-375); Red Blood Count 3.16 M/mm3 (4.2-5.4); White Blood Count 12.6 K/mm3 (4.5-10.0)
--- OUTSIDE RECORDS SUMMARY | 2025-01-22 11:28 | XMS_ITS | Encounter Summary ---
Author Organization [facility] Address [address] [place] [address] Care Team Providers Care Sanitation Inspector Name Role Phone Gamal Reese MD Primary Care Provider Encounter Details Date Type Department Care Team (Late st Contact Info) Description 02/05/2024 Orders Only [facility] Information Management [address] [place] [address] Scanning, Provider Social History Tobacco Use Types Packs/Day Years Used Date Smoking Tobacco: Never Smokeless Tobacco: Never Alcohol Use Standard Drinks/Week Comments No 0 (1 standard drink = 0.6 oz pur e alcohol) Comments Unknown Sex and Gender Information Value Date Recorded Sex Assigned at Not on file Legal Sex Female 5:08 PM FOOD ORDER DELIVERY RUNNER Gender Identity Not on file Sexual Orientation Not on file documented as of this encounter Plan of Treatment Not on file documented as of this encounter Procedures Procedure Name Priority Date/Time Associated Diagnosis Comments SCAN - RADIOLOGY/IMAGING 02/05/2024 documented in this encounter Results * SCAN - RADIOLOGY/IMAGING (02/05/2024) Anatomical Region Laterality Modality Other us Provider Scanning Final Result documented in this encounter Visit Diagnoses Not on filedocumented in this encounter Care Teams Sanitation Inspector Relationship Specialty Start Date End Date Gamal Reese MD PCP - General Family Practice 01/04/18 documented as of this encounter
--- OUTSIDE RECORDS SUMMARY | 2025-01-22 11:28 | XMS_ITS | Encounter Summary ---
Author Organization [facility] Address [address] [place] [address] Care Team Providers Care Riveter Name Role Phone Gamal Reese MD Primary Care Provider Encounter Details Date Type Department Care Team (Late st Contact Info) Description 01/21/2025 External Device Data ST[facility] ABSTRACTION Provider, Abstract NO ADDRESS ON FILE Social History Tobacco Use Types Packs/Day Years Used Date Smoking Tobacco: Never Alcohol Use Standard Drinks/Week Comments Yes 0 (1 standard drink = 0.6 oz pur e alcohol) Socially Comments No Sex and Gender Information Value Date Recorded Sex Assigned at Not on file Legal Sex Female 9:29 AM CDT Gender Identity Not on file Sexual Orientation Not on file documented as of this encounter Plan of Treatment Upcoming Encounters Date Type Department Care Team (Late st Contact Info) Description 01/29/2025 1:00 PM CDT Office Visit [facility] Oncology and Hematology - [address] [facility] [address] [address] [place] [address] [place] [address] [address] [place] [address] documented as of this encounter Visit Diagnoses Not on filedocumented in this encounter Care Teams Riveter Relationship Specialty Start Date End Date Gamal Reese MD [address] [place] [address] PCP - General Family Practice 07/06/17 documented as of this encounter
--- OUTSIDE RECORDS SUMMARY | 2025-01-22 11:28 | XMS_ITS | Encounter Summary ---
Author Organization [facility] Buffer Address [address] [place] [address] Care Team Providers Care Braille Proofreader Name Role Phone Gamal Reese MD Primary Care Provider Encounter Details Date Type Department Care Team (Late Contact Info) Description 01/22/2025 Orders Only [facility] Oncology and Hematology [address] [place] [address] Darryl Bingham MD [address] [place] [address] Chronic anemia (Primary Dx) Social History Tobacco Use Types Packs/Day Years [...] Encounters Date Type Department Care Team (Late Contact Info) Description 01/29/2025 1:00 PM CDT Office Visit [facility] Oncology and Hematology - Vik [address] [place] [address] Darryl Bingham MD [address] [place] [address] Scheduled Orders Name Type Priority Associated Diagnoses Orde r Schedule CBC WITH DIFFERENTIAL Lab Routine Chronic anemia Expected: 01/22/2025, Expires: 01/22/2026 COMPREHENSIVE METABOLIC PANEL Lab Routine Chronic anemia Expected: 01/22/2025, Expires: 01/22/2026 FERRITIN Lab Routine Chronic anemia Expected: 01/22/2025, Expires: 01/22/2026 IRON, TIBC, AND PERCENT SATURATION Lab Routine Chronic anemia Expected: 01/22/2025, Expires: 01/22/2026 VITAMIN B12 AND FOLATE Lab Routine Chronic anemia Expected: 01/22/2025, Expires: 01/22/2026 documented as of this encounter Visit Diagnoses Diagnosis Chronic anemia- Primary Anemia, unspecified documented in this encounter Care Teams Braille Proofreader Relationship Specialty Start Date End Date Gamal Reese MD [address] [place] [id number] PCP - General Family Practice 07/06/17 documented as of this encounter
--- OUTSIDE RECORDS SUMMARY | 2025-01-22 11:28 | XMS_ITS | Encounter Summary ---
Author Organization [facility] Healthcare Address [facility] [place] [address] Care Team Providers Care Black Topper Name Role Phone Gamal Reese MD Primary Care Provider Encounter Details Date Type Department Care Team (Late st Contact Info) Description 01/13/2025 Telephone [facility] Medical Group Cardiology [address] [facility] [address] [facility] [address] [place] [address] Troy Barboza MD [address] [facility] 102 [place] [address] Social History Tobacco Use Types Packs/Day Years Used Date Smoking Tobacco: Never Smokeless Tobacco: Never Alcohol Use Standard Drinks/Week Comments No 0 (1 standard drink = 0.6 oz pur e alcohol) Comments Unknown Sex and Gender Information Value Date Recorded Sex Assigned at Not on file 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 Patient will call when she needs a refill. * Telephone Encounter - Meli Nix - 01/13/2025 1:23 PM CDT Consuelo, patients daughter, called in and is wanting to discuss if they can do a generic medication for Entresto 24-26 mg tablet [[id number]]. She stated that they do not need a refill as of now, but in the future. Requesting a call back to discuss. Thank you. Contact : [phone] documented in this encounter Plan of Treatment Not on file documented as of this encounter Visit Diagnoses Not on filedocumented in this encounter Care Teams Black Topper Relationship Specialty Start Date End Date Gamal Reese MD PCP - General Family Practice 01/04/18 documented as of this encounter
--- OUTSIDE RECORDS SUMMARY | 2025-01-22 11:28 | XMS_ITS | Clinical Summary ---
Author Organization [facility] Care Team Providers Care Adventure Therapist Name Role Phone Unavailable Primary Care Provider [...]
--- OUTSIDE RECORDS SUMMARY | 2025-01-22 11:28 | XMS_ITS | Clinical Summary ---
Author Organization [facility] Address [address] [place] [address] Care Team Providers Care Adjuster And Inspector Name Role Phone Gamal Reese MD [...] tablet Take 30 mg by mouth daily early head start director. Active atorvastatin (LIPITOR) 10 mg tablet Take 10 mg by mouth daily. Active lisinopril (PRINIVIL) 20 mg tablet Take 20 mg by mouth daily. Active aspirin (ECOTRIN EC) 81 mg Tablet, Delayed Release (E.C.) Take 81 mg by mouth daily. Active levothyroxine 75 mcg tablet Take 75 mcg by mouth daily early head start director. Active nitroglycerin (NITROSTAT) 0.4 mg Tablet, Sublingual [...] ipratropium bromide (ATROVENT) 42 mcg (0.06 %) [place], Non-Aerosol USE 2 SPRAYS INTRANASALLY THREE TIMES [...] Encounters Date Type Department Care Team Description 01/22/2025 Orders Only [facility] Oncology and Hematology - [place] [address] [place] [address] Darryl Bingham MD Chronic anemia (Primary Dx) 01/21/2025 External Device Data STL ABSTRACTION Provider, Abstract 01/14/2025 External Device Data STL ABSTRACTION Provider, Abstract 12/24/2024 External Device Data STL ABSTRACTION Provider, Abstract 11/26/2024 External Device Data STL ABSTRACTION Provider, Abstract 11/12/2024 External Device Data STL ABSTRACTION Provider, Abstract 10/23/2024 External Device Data STL ABSTRACTION Provider, Abstract 10/22/2024 External Device Data STL ABSTRACTION Provider, Abstract [...] Description 01/29/2025 1:00 PM CDT Office Visit [facility] Oncology and Hematology - [place] [address] [facility] [address] [place] [address] Darryl Bingham MD [address] [facility] [address] [place] [address] Health Maintenance Due Date Last Done Comments DTAP/TDAP/TD VACCINES (1 - Tdap) [birth year]/27/1954 PNEUMOCOCCAL VACCINE 50+ YEARS (1 of 2 - PCV) 12/27/18 55 Traditional Medicare (ACO) Annual Wellness Visit 12/27 ZOSTER VACCINE (1 of 2) 12/27/1985 RSV VACCINE (60+ or ) (1 - 1-dose 75+ series) 12/27/2010 INFLUENZA VACCINE (#1) 2024 OSTEOPOROSIS SCREENING 07/30/2028 07/31/2023 Insurance [employer] MEDICARE PART A AND B MEDICARE PART A AND B [employer] Care Teams Adjuster And Inspector Relationship Specialty Start Date End Date Gamal Reese MD [address] [place] [address] PCP - General Family Practice 07/06/17
--- OUTSIDE RECORDS SUMMARY | 2025-01-22 11:28 | XMS_ITS | Clinical Summary ---
Author Organization [facility] [address] Address [address] [place] [address] Care Team Providers Care Ripening Room Attendant Name Role Phone Gamal Reese MD Primary Care Provider Allergies Active Allergy Reactions Criticality Noted Date Comments Clindamycin Diarrhea High 06/23/2020 C-Diff Duloxetine Diarrhea Low 12/22/2020 Hydroxychloroquine Rash Medium 06/23/2020 Rash on stomach Medications calcium carbonate-vitam in D3 (CALCIUM 600 + D,3,) 600-125 mg-unit [...] concentrate 450 mg tablet Take by mouth. Activ e acidophilus-pec tin, citrus 100 million cell-10 mg capsule Take by mouth daily. Active predniSONE (DELTASONE) 10 mg tablet Take 1 tablet (10 mg) by mouth every other day Active gabapentin (NEURONTIN) 300 mg capsule Take 1 capsule (300 mg total) by mouth 2 (two) times a day 07/09/19 22 Active Lumigan 0.01 % ophthalmic drops 1 drop nightly 11/29/19 22 Active dorzolamide-dominic oloL (COSOPT) 22.3-6.8 mg/mL ophthalmic solution INSTILL 1 DROP TWICE A DAY INTO BOTH EYES 11/16/19 22 Active nitroglycerin (NITROSTAT) 0.4 mg SL tabletIndicatio ns:Coronary artery disease involving [place] coronary artery of [place] heart without angina pectoris Use one tabletunder the tongue every 5 minutes as needed for chest pain,max 3 tablets 25 tablet 3 08/16/19 24 Active spironolactone (ALDACTONE) 25 mg tablet Take 1 tablet (25 mg total) by mouth daily 90 tablet 3 01/15/20 24 Active risedronate (ACTONEL) 150 mg tablet PLEASE SEE ATTACHED FOR DETAILED DIRECTIONS Active loteprednol (LOTEMAX) 0.5 % ophthalmic suspension 1 drop 2 (two) times a day 01/31/20 24 Active cyanocobalamin (Vitamin B-12) 1,000 mcg tabletIndicatio ns:Prevention of Vitamin B12 Deficiency Take 1 tablet (1,000 mcg total) by mouth daily Active L. acidophilus-dig enz cmb 5 5-250 mg capsule Take by mouth Activ e isosorbide mononitrate ER (IMDUR) 30 mg 24 hr tablet TAKE 1 TABLET BY MOUTH EVERY DAY 90 tablet 3 09/04/19 25 Active furosemide (LASIX) 20 mg tablet TAKE 1 TABLET BY MOUTH EVERY DAY 90 tablet 2 09/04/19 25 Active Entresto 24-26 mg tablet TAKE 1 TABLET BY MOUTH TWICE A DAY 180 tablet 1 09/24/19 25 Active clopidogreL (PLAVIX) 75 mg tablet TAKE 1 TABLET BY MOUTH EVERY DAY 90 tablet 2 11/16/19 25 Active carvediloL (COREG) 25 mg tablet TAKE 1/2 TABLET BY MOUTH EVERY 12 HOURS 90 tablet 3 01/07/20 25 Active carvediloL (COREG) 25 mg tablet TAKE 1/2 TABLET BY MOUTH EVERY 12 HOURS 90 tablet 3 12/25/19 24 025 Discontinued Active Problems Problem Noted Date Diagnosed Date Dilated cardiomyopathy 06/10/2024 Chronic systolic congestive heart failure 2023 Angina pectoris, unspecified 08/16/2023 CAD (coronary artery disease) 10/26/2016 S/P CABG x 1 10/26/2016 S/P coronary artery stent placement 10/26/2016 Encounters Date Type Department Care Team Description 01/13/2025 Telephone [facility] Medical Group Cardiology [address] [address] [address] [place] [address] Troy Barboza MD 12/16/2024 11:00 AM CDT Office Visit [facility] Medical Group Cardiology at [address] [place] [address] Troy Barboza MD S/P CABG x 1 (Primary Dx); Chronic systolic congestive heart failure (HCC); Dilated cardiomyopathy (HCC) from Last 3 Months [...] on file 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 Gender Identity Not on file Sexual Orientation Not on file Obstetrics History Last Filed Vital Signs Vital Sign Reading Time Taken Comments Blood Pressure 136/58 12/16/2024 10:55 AM CDT Pulse 77 12/16/2024 10:55 AM CDT Temperature - - Respiratory Rate 16 10/26/2016 11:43 AM CDT Oxygen Saturation 97% 12/16/2024 10:55 AM CDT Inhaled Oxygen Concentration - - Weight 70.1 kg (154 lb 8 oz) 12/16/2024 10:55 AM CDT Height 170.2 cm (5' 7) 12/16/2024 10:55 AM CDT Body Mass Index 24.2 12/16/2024 10:55 AM CDT Plan of Treatment Health Maintenance Due Date Last Done Comments Depression Screening 1935 Fall Risk Assessment 1935 Osteoporosis Screening-Bone Density Scan 1935 DTaP/Tdap/Td Vaccine (1 - Tdap) 12/27/1946 Hepatitis B Screening 12/27/1953 Well Visit 65+ 12/27/2000 Pneumococcal vaccine 65+ (2 of 2 - PCV) 01/26/2018 1 Zoster Vaccine (2 of 3) 01/17/2021 11/22/2020, 08/21 Influenza Vaccine (#1) 2024 Insurance [employer] MEDICARE MEDICARE [employer] Care Teams Ripening Room Attendant Relationship Specialty Start Date End Date Gamal Reese MD PCP - General Family Practice 01/04/18
--- OUTSIDE RECORDS SUMMARY | 2025-01-22 11:28 | XMS_ITS | Encounter Summary ---
Author Organization [facility] Address [address] [place] [address] Phone Care Team Providers Care Resident Assistant Name Role Phone Unavailable Primary Care Provider Unavailabl e Reason for Visit * Reason Comments Medication Refill Encounter Details Date Type Department Care Team (Late st Contact Info) Description 12/10/2022 Refill [facility] Medical Group - Primary Care - [place] [address] [place] [address] Cammy Gutierrez, MUSHTAQ, SARAH [address] [place] [address] Medication Refill Social History Tobacco [...]
[2025-01-22 13:34] LABS: Iron 54 ug/dL (37-170)
[2025-01-22 13:35] LABS: Alanine Aminotransferase 24 U/L (6-35); Albumin Level 4.2 g/dL (3.5-5.1); Alkaline Phosphatase 61 U/L (38-126); Anion Gap 10 mmol/L (4-12); Aspartate Amino Transferase 29 U/L (14-36); Bilirubin,Total 0.5 mg/dL (0.2-1.3); Blood Urea Nitrogen 38 mg/dL (7-17); Calcium 9.5 mg/dL (8.4-10.2); Carbon Dioxide 24 mmol/L (22-30); Chloride 105 mmol/L (98-107); Estimated Glomerular Filt Rate 31; Glucose 109 mg/dL (65-110); Potassium 4.6 mmol/L (3.4-5.0); Sodium 139 mmol/L (137-145); Total Protein 7.2 g/dL (6.3-8.2)
[2025-01-22 13:44] LABS: Percent Iron Saturation 16 % (20-50)
[2025-01-22 14:19] LABS: Ferritin 91.90 ng/mL (11.1-264)
[2025-01-22 14:43] LABS: Vitamin B12 950.0 pg/mL (239-931)
== END 2025-01-22 09:58 | disposition home or self-care (01) ==
LOC: ANHLAB 09:58
PROVIDERS: PCP Family Medicine; Visit Provider Internal Medicine Hematology & Oncology
DX: D64.9 Anemia, unspecified (principal)
CPT/HCPCS: 36415; 80053; 82607; 82728; 82746; 83540; 83550; 85025

== ENCOUNTER 2025-01-29 13:38 | Outpatient (CLI) | payer MEDICARE, SELFPAY ==
--- OUTSIDE RECORDS SUMMARY | 2025-01-29 13:00 | XMS_ITS | Encounter Summary ---
Author Organization [facility] Address [address] [place] [address] Care Team Providers Care Child Development Instructor Name Role Phone Gamal Reese MD Primary Care Provider Reason for Visit * Reason Comments Cancer Follow Up Encounter Details Date Type Department Care Team (Late st Contact Info) Description 01/29/2025 1:00 PM CDT Office Visit [facility] Oncology and Hematology - [place] [address] [facility] 200 [place] [address] Darryl Bingham MD [address] [facility] [address] [place] [address] Malignant neoplasm of ascending colon (CMS/HCC) (Primary Dx); Chronic anemia Social History Tobacco Use Types Packs/Day Years [...] on file documented as of this encounter Last Filed Vital Signs Vital Sign Reading Time Taken Comments Blood Pressure 130/65 01/29/2025 1:04 PM CDT Pulse 74 01/29/2025 1:04 PM CDT Temperature 36.1 C (96.9 F) 01/29/2025 1:04 PM CDT Respiratory Rate 15 01/29/2025 1:04 PM CDT Oxygen Saturation 95% 01/29/2025 1:04 PM CDT Inhaled Oxygen Concentration - - Weight 69.7 kg (153 lb 9.6 oz) 01/29/2025 1:04 P M CDT Height - - Body Mass Index 24.06 07/13/2021 12:46 PM CDT documented in this encounter Progress Notes * Darryl Bingham MD - 01/29/2025 1:49 PM CDT HEMATOLOGY / ONCOLOGY PROGRESS NOTE Patient Identification: Name: Krystle Avila Age: 89 y.o. 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 She denies any dysuria and hematuria. Denies any chest pain shortness of breath. She has lost 2 pound weight. Denies any melena hematochezia. No other new complaints. Review of system Constitutional: denies fevers, sweats, weight and appetite stable, denies any tiredness and fatigue HEENT: denies sinus congestion, hearing or vision problems Respiratory: denies cough, dyspnea, wheeze Cardiovascular: denies chest pain, exertional chest pressure/discomfort, nausea, syncope, shortnessof breath GI: denies constipation, diarrhea, dsyphagia, reflux symptoms, vomiting, melena : denies dysuria, frequency, incontinence, denies any urine urgency Integumentary system: no lymphadenopathy, sweats, flushing Musculoskeletal: denies: myalgia, complain of arthralgia Neurological: denies blurry or disturbed vision, numbness/weakness, dizziness Skin: No lumps, rash has improved 12 point review of system was reviewed Objective: Vital signs in last 24 hours: As per nursing note Exam: General appearance: alert, cooperative, no distress, appears stated age Head: normocephalic, without obvious abnormality, atraumatic Eyes: conjunctivae/corneas clear, EOM's intact Ears: normal external ear canals AU Nose: Nares normal. Septum midline. Mucosa normal. No drainage or sinus tenderness Throat: Lips, mucosa, and tongue normal. Teeth and gums normal Neck: supple, symmetrical, trachea midline. Lungs: clear to auscultation bilaterally Heart: regular rate and rhythm, S1, S2 normal, no murmur, click, rub or gallop Abdomen: soft, non-tender. Bowel sounds normal. No masses, No organomegaly Extremities: extremities normal, atraumatic, no cyanosis or edema Skin: Skin color, texture, turgor normal. No rash Lymph nodes: No lymphadenopathy Exam as above PATH LABS Labs from January 29, 2019 showed WBC 11.8 hemoglobin 13.1 platelet 214,000 neutrophils 76% lymphocyte 10% sed rate 14 CRP less than 0.5 calcium 10.4 creatinine 0.8 vitamin B12 243 total bilirubin 0.5 AST 29 ALT 39 alkaline phosphatase 71 iron 91 iron saturation 24%. Labs from May 27 showed WBC 8.1 hemoglobin 13.3 platelet 174,000 creatinine 0.9 CEA 2.1 vitamin B12 701 total bilirubin 0.6. Labs from November 24 showed hemoglobin 12.6 AST 34 ALT 36 CEA 1.8 Labs from May 12 showed hemoglobin 12.9 calcium 9.7 AST 29 ALT 22 CEA 1.6 Labs from December 15 showed hemoglobin WBC 9.1 hemoglobin 13.4 platelet 181,000 creatinine 0.83-1.9 normal liver function test Labs from June 14, 2021 showed hemoglobin 13.1 CEA 1.5 Labs from April 08 showed creatinine 0.9 total bilirubin 0.7 CEA 1.5 WBC 8.9 hemoglobin 13.1 platelet 199,000 AST 40. Labs from January 04 showed creatinine 1.0 total bilirubin 0.6 CEA 2.5 WBC 10.7 hemoglobin 12.6 platelet 174,000 Labs from January 09 showed creatinine 1.2 CEA 2.6 hemoglobin 10.9 WBC 9.6 platelet 196,000 Labs from January 21 showed iron 125 saturation 36 ferritin 150 B12 524 UA showed 4+ bacteria and 21-50 WBCs with positive urine nitrate Labs from January 22 showed creatinine 1.5 B12 950 bilirubin 0.5 WBC 12.6 hemoglobin 10.6 platelet 165,000 iron 54 saturation 16 ferritin 91 Assessment: Plan: Patient Active Problem List Diagnosis Date Noted Colostomy status ([facility]/HCC) 06/03/2019 Acute deep vein thrombosis (DVT) of distal vein of left lower extremity 05/25/2018 Malignant neoplasm of ascending colon ([facility]/HCC) 07/21/2017 T3 N0 M0 stage IIA adenocarcinoma of the ascending colon. Patient was diagnosed in May 2017 status post laparoscopic right-sided hemicolectomy. No adjuvant chemotherapy given. CT scan abdomen and pelvis from June 14 showed no evidence of relapse of disease. Labs stable. She is asymptomatic. We will order CEA today as it was not done and we will call her back next week. Colonoscopy is not needed at this age. Anemia. Likely secondary to CKD. Hemoglobin low. Iron saturation also slightly low. I recommended to take iron 65 mg daily along with vitamin B12 1 mg daily. History of DVT involving the left lower extremity. Asymptomatic on aspirin and Plavix. Follow-up on yearly basis 01/29/2025 Darryl Bingham MD documented in this encounter Plan of Treatment Upcoming Encounters Date Type Department Care Team (Late st Contact Info) Description 12/05/2025 9:45 AM CDT Office Visit [facility] Oncology and Hematology - [place] [address] [facility] [address] [place] [address] Darryl Bingham MD [address] [facility] [address] [place] [address] Scheduled Orders Name Type Priority Associated Diagnoses Orde r Schedule CEA Lab Stat Malignant neoplasm of ascending colon (CMS/HCC) Expected: 01/29/2025, Expires: 01/29/2026 CBC WITH DIFFERENTIAL Lab Stat Chronic anemia Expected: 01/29/2026, Expires: 04/29/2026 COMPREHENSIVE METABOLIC PANEL Lab Stat Chronic anemia Expected: 01/29/2026, Expires: 04/29/2026 FERRITIN Lab Routine Chronic anemia Expected: 01/29/2026, Expires: 04/29/2026 IRON, TIBC, AND PERCENT SATURATION Lab Routine Chronic anemia Expected: 01/29/2026, Expires: 04/29/2026 VITAMIN B12 LEVEL Lab Routine Chronic anemia Expected: 01/29/2026, Expires: 04/29/2026 CEA Lab Routine Malignant neoplasm of ascending colon (CMS/HCC) Expected: 01/29/2026, Expires: 04/29/2026 documented as of this encounter Visit Diagnoses Diagnosis Malignant neoplasm of ascending colon (CMS/HCC)- Primary Malignant neoplasm of ascending colon Chronic anemia Anemia, unspecified documented in this encounter Care Teams Child Development Instructor Relationship Specialty Start Date End Date Gamal Reese MD [address] [place] [address] PCP - General Family Practice 07/06/17 documented as of this encounter
--- OUTSIDE RECORDS SUMMARY | 2025-01-29 17:30 | XMS_ITS | Encounter Summary ---
Author Organization [facility] Address [address] [place] [address] Phone Care Team Providers Care Reworker Name Role Phone Unavailable Primary Care Provider Unavailabl e Reason for Visit * Reason Comments Medication Refill Encounter Details Date Type Department Care Team (Late st Contact Info) Description 12/10/2022 Refill [facility] Medical Group - Primary Care - [place] [address] [place] [address] Cammy Gutierrez, MUSHTAQ, SARAH [address] [place] [address] Medication Refill Social History Tobacco [...]
--- OUTSIDE RECORDS SUMMARY | 2025-01-29 17:30 | XMS_ITS | Encounter Summary ---
Author Organization [facility] Healthcare Address [facility] [place] [address] Care Team Providers Care Toll Lineman Name Role Phone Gamal Reese MD Primary Care Provider Encounter Details Date Type Department Care Team (Late st Contact Info) Description 01/13/2025 Telephone [facility] Medical Group Cardiology [address] [facility] [address] [facility] 102 [place] [address] Troy Barboza MD [address] [facility] [address] [place] [address] Social History Tobacco Use Types Packs/Day Years Used Date Smoking Tobacco: Never Smokeless Tobacco: Never Alcohol Use Standard Drinks/Week Comments No 0 (1 standard drink = 0.6 oz pur e alcohol) Comments Unknown Sex and Gender Information Value Date Recorded Sex Assigned at Not on file 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 She stated that they do not need a refill as of now, but in the future. Requesting a call back to discuss. Thank you. Contact : [phone] documented in this encounter Plan of Treatment Not on file documented as of this encounter Visit Diagnoses Not on filedocumented in this encounter Care Teams Toll Lineman Relationship Specialty Start Date End Date Gamal Reese MD PCP - General Family Practice 01/04/18 documented as of this encounter
--- OUTSIDE RECORDS SUMMARY | 2025-01-29 17:30 | XMS_ITS | Clinical Summary ---
Author Organization [facility] Care Team Providers Care Scuba Diving Teacher Name Role Phone Unavailable Primary Care Provider [...]
--- OUTSIDE RECORDS SUMMARY | 2025-01-29 17:30 | XMS_ITS | Clinical Summary ---
Author Organization 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 Active atorvastatin (LIPITOR) 10 mg tablet Take 10 mg by mouth daily. Active aspirin (ECOTRIN EC) 81 mg Tablet, Delayed Release (E.C.) Take 81 mg by mouth daily. Active levothyroxine 75 mcg tablet Take 75 mcg by mouth daily auto body repairer fiberglass. Active nitroglycerin (NITROSTAT) 0.4 mg Tablet, Sublingual [...] ipratropium bromide (ATROVENT) 42 mcg (0.06 %) [place], Non-Aerosol USE 2 SPRAYS INTRANASALLY THREE TIMES [...] Take 0.52 Grams by mouth daily. Active Entresto 24-26 mg Tablet Take 1 Tablet by mouth 2 times daily. 5 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 Acute deep vein thrombosis ( DVT) of distal vein of left lower extremity 05/25/2018 Malignant neoplasm of ascending colon 07/21/2017 Resolved Problems Problem Noted Date Diagnosed Date Resolved Date Colonic mass 07/21/2017 07/21/2017 Encounters Date Type Department Care Team Description 01/29/2025 1:00 PM CDT Office Visit [facility] Oncology and Hematology - [address] [place] [phone] Darryl Bingham MD Malignant neoplasm of ascending colon (CMS/HCC) (Primary Dx); Chronic anemia 01/23/2025 Orders Only [facility] Oncology and [facility]ematology [facility] [address] [place] [address] Darryl Bingham MD 01/22/2025 Orders Only [facility] Oncology and Hematology [address] [place] [address] Darryl Bingham MD Chronic anemia (Primary Dx) [...] oz) 01/29/2025 1:04 P M CDT Height 170.2 cm (5' 7) 07/13/2021 12:46 PM CDT Body Mass Index 24.06 07/13/2021 12:46 PM CDT Plan of Treatment Upcoming Encounters Date Type Department Care Team (Late st Contact Info) Description 12/05/2025 9:45 AM CDT Office Visit [facility] Oncology and Hematology - [address] [facility] [address] [place] [address] Darryl Bingham MD [address] [facility] [address] [place] [address] Health Maintenance Due Date Last Done Comments DTAP/TDAP/TD VACCINES (1 - Tdap) 12/27/1954 PNEUMOCOCCAL VACCINE 50+ YEARS (1 of 2 - PCV) 12/27/18 55 Traditional Medicare (ACO) Annual Wellness Visit 12/27 ZOSTER VACCINE (1 of 2) 12/27/1985 RSV VACCINE (60+ or ) (1 - 1-dose 75+ series) 12/27/2010 INFLUENZA VACCINE (#1) 2024 OSTEOPOROSIS SCREENING 07/30/2028 07/31/2023 Procedures Procedure Name Priority Date/Time Associated Diagnosis Comments COMPREHENSIVE METABOLIC PANEL Routine 01/22/2025 12:31 PM CDT CBC WITH AUTODIFFERENTIAL Routine 2024 12:02 PM CDT from Last 3 Months Results * COMPREHENSIVE METABOLIC PANEL (01/22/2025 12:31 PM CDT) Blood Darryl Bingham MD CHEMISTRY ORDERABLES Final Resu lt * CBC WITH AUTODIFFERENTIAL (01/22/2025 12:02 PM CDT) Blood Darryl Bingham MD HEMATOLOGY ORDERABLES Final Res ult from Last 3 Months Insurance [employer] MEDICARE PART A AND B MEDICARE PART A AND B [employer] Care Teams Cash Manager Relationship Specialty Start Date End Date Gamal Reese MD [address] [place] [address] PCP - General Family Practice 07/06/17
--- OUTSIDE RECORDS SUMMARY | 2025-01-29 17:30 | XMS_ITS | Clinical Summary ---
Author Organization [facility] [address] Address [address] [place] [address] Care Team Providers Care Director Of Critical Care Name Role Phone Gamal Reese MD Primary [...] mg SL tabletIndicatio ns:Coronary artery disease involving lumbee coronary artery of lumbee heart without angina pectoris Use one tabletunder [...] Type Department Care Team Description 01/13/2025 Telephone [facility] Cardiology [address] [address] [address] [place] [address] Troy Barboza MD 12/16/2024 11:00 AM CDT Office Visit [facility] Cardiology at [address] [place] [address] Troy Barboza MD S/P CABG [...] on file 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
--- OUTSIDE RECORDS SUMMARY | 2025-01-29 17:30 | XMS_ITS | Encounter Summary ---
Author Organization [facility] Address [address] [place] [address] Care Team Providers Care Furniture Mover Driver Name Role Phone Gamal Reese MD Primary Care Provider Encounter Details Date Type Department Care Team (Late st Contact Info) Description 02/05/2024 Orders Only [facility] Health Information Management [address] [place] [id number] Scanning, Provider Social History Tobacco Use Types Packs/Day Years Used Date Smoking Tobacco: Never Smokeless Tobacco: Never Alcohol Use Standard Drinks/Week Comments No 0 (1 standard drink = 0.6 oz pur e alcohol) Comments Unknown Sex and Gender Information Value Date Recorded Sex Assigned at Not on file 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
--- OUTSIDE RECORDS SUMMARY | 2025-01-29 17:30 | XMS_ITS | Encounter Summary ---
Author Organization [facility] [employer] Address [address] [place] [address] Care Team Providers Care Flitch Hanger Name Role Phone Gamal Reese MD Primary Care Provider Encounter Details Date Type Department Care Team (Late Contact Info) Description 01/23/2025 Orders Only [facility] Oncology and Hematology [facility] [address] [place] [address] Darryl Bingham MD [facility] [address] [place] [address] Social History Tobacco Use Types Packs/Day Years [...] Description 12/05/2025 9:45 AM CDT Office Visit [facility] Oncology and Hematology [address] [place] [address] Darryl Bingham MD [address] [place] [phone] documented as of this encounter Procedures Procedure Name Priority Date/Time Associated Diagnosis Comments COMPREHENSIVE METABOLIC PANEL Routine 01/22/2025 12:31 PM CDT documented in this encounter Results * COMPREHENSIVE METABOLIC PANEL (01/22/2025 12:31 PM CDT) Blood Darryl Bingham MD CHEMISTRY ORDERABLES Final Resu lt documented in this encounter Visit Diagnoses Not on filedocumented in this encounter Care Teams Flitch Hanger Relationship Specialty Start Date End Date Gamal Reese MD [address] [place] [address] PCP - General Family Practice 07/06/17 documented as of this encounter
[2025-01-29 17:52] LABS: Carcinoembryonic Antigen 2.2 ng/mL (0.0-3.0)
== END 2025-01-29 13:39 | disposition home or self-care (01) ==
LOC: ANHLAB 13:39
PROVIDERS: PCP Family Medicine; Visit Provider Internal Medicine Hematology & Oncology
DX: C18.2 Malignant neoplasm of ascending colon (principal)
CPT/HCPCS: 36415; 82378

== ENCOUNTER 2025-02-16 12:54 | Emergency (ER) | payer MEDICARE, SELFPAY ==
[2025-02-16 13:08] VITALS: BP 103/59; PULSE 67; RESP 16; TEMP 36.2; O2SAT 98
--- NOTE | 2025-02-16 13:16 | ED.GENADULT ---
HPI - General Adult General Chief complaint: Urogenital-Female Stated complaint: Uti Symptoms Time Seen by Provider: 02/16/25 13:16 Source: patient Mode of arrival: ambulatory Limitations: no limitations History of Present Illness HPI narrative: 89-year-old female patient presents to the [facility] with complaints of urinary tract infection symptoms that started Gerald night. Patient states she has some burning with urination and has had a lot of frequency to the point where at times she cannot make it to the restroom. Denies fevers body aches or chills. Denies any lower back pain or abdominal pain. Related Data Home Medications ?Medication ?Instructions ?Recorded ?Confirmed ?Last Taken ?Type aspirin 81 mg tablet,delayed 81 mg PO DAILY 03/26/19 09/09/24 06/16/23 History release (Adult Low Dose Aspirin) clopidogrel 75 mg tablet 75 mg PO QACDINNER 03/26/19 09/09/24 06/15/23 History isosorbide mononitrate 30 mg 30 mg PO DAILY 03/26/19 09/09/24 06/16/23 History tablet,extended release 24 hr multivitamin 1 tablet PO DAILY 03/26/19 09/09/24 06/16/23 History nitroglycerin 0.4 mg sublingual 0.4 mg sublingual Q5M PRN Chest 03/26/19 09/09/24 04/08/23 History tablet (Nitrostat) Pain calcium carbonate (Calcium 600) 600 mg PO DAILY 06/20/19 09/09/24 06/16/23 History vitamin B complex (B 1 tablet PO DAILY 06/20/19 09/09/24 06/16/23 History Complex-Vitamin B12 tablet) carvedilol 25 mg tablet 12.5 mg PO Q12H 01/27/20 09/09/24 06/16/23 History lactobacillus combination no.9 4 4,000 mmu cells PO DAILY 07/08/21 09/09/24 06/15/23 History billion cell capsule (Adult 50 Plus Probiotic) peg 400-propylene glycol 0.4 %-0.3 1 drp EACH EYE DAILY PRN Dry Eyes 07/08/21 09/09/24 06/16/23 History % eye drops (Systane Ultra) psyllium husk 0.4 gram capsule 0.4 g PO PRN PRN Constipation 07/08/21 09/09/24 06/15/23 History (Metamucil) loteprednol etabonate 0.5 % eye 1 drp EACH EYE BID 10/20/21 09/09/24 06/16/23 History drops,suspension bimatoprost 0.01 % eye drops 1 drp EACH EYE QPM 06/16/23 09/09/24 06/16/23 History (Lumigan) niacin 500 mg tablet 500 mg PO TID 09/11/23 09/09/24 Unknown History tacrolimus 0.1 % topical ointment 1 applic topical DAILY PRN Rash 09/11/23 09/09/24 Unknown History brimonidine 0.025 % eye drops 1 drp EACH EYE QID PRN redness 11/10/23 09/09/24 Unknown History (Lumify) furosemide 20 mg tablet 20 mg PO QAM 12/14/23 09/09/24 Unknown History prednisone 5 mg tablet 2.5 mg PO DAILY 02/14/24 09/09/24 Unknown History acetaminophen 325 mg tablet 650 mg PO QHS Pain Rated 5 Or Less 09/09/24 09/09/24 Unknown History cranberry 500 mg capsule 500 mg PO DAILY 09/09/24 09/09/24 Unknown History dorzolamide 22.3 mg-timolol 6.8 1 drp EACH EYE BID 09/09/24 09/09/24 Unknown History mg/mL eye drops doxycycline hyclate 100 mg tablet mg 02/16/25 Unknown History Allergies Allergy/AdvReac Type Severity Reaction Status Date / Time hydroxychloroquine Allergy Mild Rash Verified 02/16/25 13:20 adapalene (From Differin) AdvReac Intermediate eczema Verified 02/16/25 13:20 clindamycin AdvReac Intermediate cDiff Verified 02/16/25 13:20 duloxetine AdvReac Mild Diarrhea Verified 02/16/25 13:20 solorio AdvReac Intermediate eczema Uncoded 09/09/24 09:34 Review of Systems Review of Systems: CONSTITUTIONAL: Denies fever, chills, or sweats. EYES: Denies visual changes, redness, or discharge. ENT: Denies rhinorrhea, congestion, sore throat, or otalgia. CARDIOVASCULAR: Denies chest pain, palpitations, or edema. RESPIRATORY: Denies cough or dyspnea. GASTROINTESTINAL: Denies abdominal pain, nausea, vomiting, or diarrhea. GENITOURINARY: Positive dysuria denies hematuria. SKIN: Denies rash or itching. MUSCULOSKELETAL: Denies back pain, joint pain, or myalgia. NEUROLOGIC: Denies headache, numbness, or weakness. PSYCHIATRIC: Denies anxiety or depression. [facility] Past Medical History Medical History Mass of right submandibular gland CKD stage 3b, GFR 30-44 ml/min Prediabetes Chronic venous insufficiency of lower extremity Bullous pemphigoid lower extremities Neuropathy of lower extremity CHF (congestive heart failure) History of recurrent deep vein thrombosis (DVT) 2013 - left LE 2019 - left LE History of Clostridioides difficile colitis 2018 History of colon cancer Anxiety CAD in [place] artery Dyslipidemia, goal LDL below 100 Essential (primary) hypertension Hypothyroidism (acquired) Insomnia Polymyalgia rheumatica (~2018) Generalized osteoarthritis of multiple sites Hx of blood clots Surgical History Surgical History History of eyelid surgery 03/2013 - b/l History of coronary artery stent placement 1999 History of right hemicolectomy 05/2017 Hx of cataract extraction left - 11/2012 right - 12/2012 History of back surgery 1990 for herniated disc L spine Family History Family History Mother Family history of cardiovascular disease Father Cerebrovascular accident Social History Social History Social History: Caffeine-coffee daily Second hand tobacco smoke exposure: No Alcohol intake: never Substance use: never Substance use type: does not use Do You Feel Safe in your Home?: Yes Lack of Transportation: No Lack of Food: Never True Current Housing: I Have Housing Concerned About Future Housing: No Difficulty Paying Gas/Electric Bills: No Difficulty Paying for Meds: No Currently Unemployed: No Education: High School Diploma/GED Difficulty w/ Childcare or Family Care: No Living arrangements: alone Occupation/Education: retired Gender identity (if verbalized by the patient): Female Spiritual care concerns: No Agree to blood products: Yes Comments At the time of my signature I agree with nursing past medical history, surgical, social, and family history. There is no relevant family history pertinent to the presenting complaint. Exam Narrative: GENERAL: Well-appearing, well-nourished, and in no acute distress. HEAD: Normocephalic, atraumatic. EYES: PERRLA and EOMI. ENT: Nares clear, no rhinorrhea or epistaxis. Mucous membranes moist. NECK: Supple. No lymphadenopathy CHEST: Clear to auscultation. No respiratory distress. HEART: Regular rate and rhythm. No murmur heard. Normal peripheral pulses. ABDOMEN: Soft, nontender, nondistended, normal active bowel sounds. no CVA tenderness on percussion EXTREMITIES: Normal range of motion. No edema. SKIN: Warm, dry, no rash. NEURO: No focal deficits. Alert and oriented x3. Course Course Level of Care: Express Care Visit Vital Signs Vital signs: Vital Signs Temperature 36.2 C L 02/16/25 13:08 Pulse Rate 67 02/16/25 13:08 Respiratory Rate 16 02/16/25 13:08 Blood Pressure 103/59 L 02/16/25 13:08 Pulse Oximetry 98 02/16/25 13:08 Temperature 36.2 C L 02/16/25 13:08 Pulse Rate 67 02/16/25 13:08 Respiratory Rate 16 02/16/25 13:08 Blood Pressure 103/59 L 02/16/25 13:08 Pulse Oximetry 98 02/16/25 13:08 vital signs reviewed. Medical Decision Making MDM Narrative Medical decision making narrative: plan care patient is discharged home with oral antibiotic for UTI. Discussed with patient we will send her urine off to the lab for culture if the culture shows that she needs a different type of antibiotic we will call her in a different 1 at that time. Patient verbalized understanding denies any other questions or concerns at this time. Differential Diagnosis Differential Diagnosis: Differential diagnosis: Uncomplicated lower UTI, uncomplicated UTI, pyelonephritis Vital Signs Vital Signs: Vital Signs Temperature 36.2 C L 02/16/25 13:08 Pulse Rate 67 02/16/25 13:08 Respiratory Rate 16 02/16/25 13:08 Blood Pressure 103/59 L 02/16/25 13:08 Pulse Oximetry 98 02/16/25 13:08 Temperature 36.2 C L 02/16/25 13:08 Pulse Rate 67 02/16/25 13:08 Respiratory Rate 16 02/16/25 13:08 Blood Pressure 103/59 L 02/16/25 13:08 Pulse Oximetry 98 02/16/25 13:08 Lab Data Labs: Lab Results 02/16/25 Range/Units 13:21 POC Urine Color Yellow POC Urine Clarity Clear POC Urine pH 7.0 POC Ur Specif [place] 1.020 POC Urine Protein 2+ (Negative) POC Ur Glucose (UA) Negative (Negative) POC Urine Ketones Trace (Negative) POC Urine Blood 2+ (Negative) POC Urine Nitrite Negative (Negative) POC Urine Bilirubin Negative (Negative) POC Urine Urobilinogen 0.2 POC U Leukocyte Esteras 3+ (Negative) Critical Care Time Critical Care Time Critical Care Time: No Discharge Plan Discharge Clinical Impression: Urinary tract infection Patient Disposition: Home Condition: Stable Instructions: Antibiotic Form, Urinary Tract Infection in Women (ED) Additional Instructions: We will send a urine culture off to the lab; if the culture identifies an organism that the prescribed antibiotic will not treat, you will receive a phone call from an urgent care staff member and an appropriate antibiotic will be prescribed. -Your symptoms should begin to improve within a day of starting antibiotics. But you should finish all the antibiotic pills you get. Otherwise your infection might come back. -Also recommend: drink more fluid. It might help flush out germs, and it does no harm -Tylenol/ibuprofen prn for pain or fever -Follow-up with your primary care provider for urine recheck or seek ER visit if condition worsens with high fever, nausea, vomiting and severe back pain. Patient Language: Kazakh Prescriptions: New cephalexin 500 mg capsule 500 mg PO Q6H 7 Days Qty: 28 0RF No Action Lumify 0.025 % Drops 1 drp EACH EYE QID PRN (Reason: redness) doxycycline hyclate 100 mg tablet aspirin [Adult Low Dose Aspirin] 81 mg tablet,delayed release (DR/EC) 81 mg PO DAILY clopidogrel 75 mg tablet 75 mg PO QACDINELISHA Patient Comments: bedtime isosorbide mononitrate 30 mg tablet extended release 24 hr 30 mg PO DAILY multivitamin Tablet 1 tablet PO DAILY nitroglycerin [Nitrostat] 0.4 mg tablet, sublingual 0.4 mg SUBLINGUAL Q5M PRN (Reason: Chest Pain) cranberry 500 mg capsule 500 mg PO DAILY vitamin B complex [B Complex-Vitamin B12] Tablet 1 tablet PO DAILY calcium carbonate [Calcium 600] 600 mg calcium (1,500 mg) tablet 600 mg PO DAILY Adult 50 Plus Probiotic 4 billion cell capsule 4,000 mmu cells PO DAILY Rx Instructions: administer with a meal psyllium husk [Metamucil] 0.4 gram capsule 0.4 g PO PRN PRN (Reason: Constipation) Patient Comments: takes at bedtime Systane Ultra 0.4-0.3 % drops 1 drp EACH EYE DAILY PRN (Reason: Dry Eyes) niacin 500 mg tablet 500 mg PO TID tacrolimus 0.1 % ointment 1 applic topical DAILY PRN (Reason: Rash) Rx Instructions: use 2 times a week for 6 weeks if needed prednisone 5 mg tablet 2.5 mg PO DAILY Rx Instructions: Every other day carvedilol 25 mg tablet 12.5 mg PO Q12H Patient Comments: 12 mg in the morning, 25 mg at bedtime Rx Instructions: must administer with a meal/food furosemide 20 mg tablet 20 mg PO QAM loteprednol etabonate 0.5 % drops,suspension 1 drp EACH EYE BID dorzolamide-timolol 22.3-6.8 mg/mL drops 1 drp EACH EYE BID acetaminophen 325 mg tablet 650 mg PO QHS Lumigan 0.01 % Drops 1 drp EACH EYE QPM spironolactone 25 mg Tablet 25 mg PO QAM Qty: 20 0RF Entresto 24-26 mg Tablet 1 tablet PO Q12HR 30 Days Qty: 60 1RF levothyroxine 75 mcg tablet 75 mcg PO DAILY Qty: 90 1RF atorvastatin 10 mg tablet 10 mg PO QHS Qty: 90 1RF gabapentin 300 mg capsule 300 mg PO BID Qty: 180 1RF risedronate [Actonel] 150 mg tablet 150 mg PO MONTHLY Qty: 15 3RF Rx Instructions: administer at least 30 minutes before the first food or drink of the day other than water. ipratropium bromide 42 mcg (0.06 %) spray,non-aerosol See Rx Instructions .ROUTE .COMPLEX Qty: 45 1RF Dose Instruction: USE 2 SPRAYS IN EACH NOSTRIL THREE TIMES DAILY Rx Instructions: USE 2 SPRAYS IN EACH NOSTRIL THREE TIMES DAILY Follow-up/Referrals: Clemente Reese MD [Primary Care Provider, [facility]] Time of Disposition: 13:40
[2025-02-16 13:23] LABS: EDUAAPPEAR Clear; EDUABILI Negative (Negative); EDUABLOOD 2+ (Negative); EDUACOLOR1 Yellow; EDUAGLUCOSE Negative (Negative); EDUAKETONE Trace (Negative); EDUALEUKO 3+ (Negative); EDUANITRATE Negative (Negative); EDUAPH 7.0; EDUAPROTEIN 2+ (Negative); EDUASPGRAVITY 1.020; EDUAUROBILI 0.2
== END 2025-02-16 13:42 | disposition home or self-care (01) ==
PROVIDERS: Emergency Provider Nurse Practitioner Family; PCP Family Medicine
DX: N39.0 Urinary tract infection, site not specified (principal); I13.0 Hypertensive heart and chronic kidney disease with heart failure and stage 1 through stage 4 chronic kidney disease, or unspecified chronic kidney disease; N18.32 Chronic kidney disease, stage 3b; I50.9 Heart failure, unspecified; R73.03 Prediabetes; I25.10 Atherosclerotic heart disease of native coronary artery without angina pectoris; E78.5 Hyperlipidemia, unspecified; E03.9 Hypothyroidism, unspecified; M15.9 Polyosteoarthritis, unspecified; M35.3 Polymyalgia rheumatica; Z86.718 Personal history of other venous thrombosis and embolism; G62.9 Polyneuropathy, unspecified; I87.2 Venous insufficiency (chronic) (peripheral); Z85.038 Personal history of other malignant neoplasm of large intestine; Z86.19 Personal history of other infectious and parasitic diseases; Z95.5 Presence of coronary angioplasty implant and graft; Z98.42 Cataract extraction status, left eye; Z98.41 Cataract extraction status, right eye
CPT/HCPCS: 81003; 87086; 87186; 99213; G0463

== ENCOUNTER 2025-03-10 09:35 | Outpatient (CLI) | payer MEDICARE, SELFPAY ==
--- OUTSIDE RECORDS SUMMARY | 2025-03-10 10:26 | XMS_ITS | Clinical Summary ---
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 Active atorvastatin (LIPITOR) 10 mg tablet Take 10 mg by mouth daily. Active aspirin (ECOTRIN EC) 81 mg Tablet, Delayed Release (E.C.) Take 81 mg by mouth daily. Active levothyroxine 75 mcg tablet Take 75 mcg by mouth daily barge worker. Active nitroglycerin (NITROSTAT) 0.4 mg Tablet, Sublingual [...] ipratropium bromide (ATROVENT) 42 mcg (0.06 %) [place], Non-Aerosol USE 2 SPRAYS INTRANASALLY THREE TIMES [...] Encounters Date Type Department Care Team Description 02/25/2025 External Device Data STL ABSTRACTION Provider, Abstract 01/30/2025 Orders Only [facility] Oncology and Hematology - [place] [address] [place] [address] Darryl Bingham MD 01/29/2025 1:00 PM CDT Office Visit [facility] Oncology and Hematology [facility] [address] [place] [address] Darryl Bingham MD Malignant neoplasm of ascending colon (CMS/HCC) (Primary Dx); Chronic anemia 01/23/2025 Orders Only [facility] Oncology and Hematology [place] [address] [place] [address] Darryl Bingham MD 01/22/2025 Orders Only [facility] Oncology and Hematology [address] [place] [address] Darryl Bingham MD Chronic anemia (Primary Dx) [...] Description 12/05/2025 9:45 AM CDT Office Visit [facility] Oncology and Hematology - [address] [facility] [address] [place] [address] Darryl Bingham MD [address] [facility] [address] [place] [address] Health Maintenance Due Date Last Done Comments DTAP/TDAP/TD VACCINES (1 - Tdap) 12/27/1954 PNEUMOCOCCAL VACCINE 50+ YEARS (1 of 2 - PCV) 12/27/18 55 ZOSTER VACCINE (1 of 2) 12/27/1985 RSV VACCINE (60+ or ) (1 - 1-dose 75+ series) 12/27/2010 INFLUENZA VACCINE (#1) 2024 OSTEOPOROSIS SCREENING 07/30/2028 07/31/2023 Procedures Procedure Name Priority Date/Time Associated Diagnosis Comments CEA Routine 01/29/2025 7:54 AM CDT COMPREHENSIVE METABOLIC PANEL Routine 01/22/2025 12:31 PM CDT CBC WITH AUTODIFFERENTIAL Routine 2024 12:02 PM CDT from Last 3 Months Results * CEA (01/29/2025 7:54 AM CDT) Blood Darryl Bingham MD CHEMISTRY ORDERABLES Final Resu lt * COMPREHENSIVE METABOLIC PANEL (01/22/2025 12:31 PM CDT) Blood Darryl Bingham MD CHEMISTRY ORDERABLES Final Resu lt * CBC WITH AUTODIFFERENTIAL (01/22/2025 12:02 PM CDT) Blood Darryl Bingham MD HEMATOLOGY ORDERABLES Final Res ult from Last 3 Months Insurance [employer] MEDICARE PART A AND B MEDICARE PART A AND B [employer] Care Teams Rn Telehealth Relationship Specialty Start Date End Date Gamal Reese MD [address] [place] [phone] PCP - General Family Practice 07/06/17
--- OUTSIDE RECORDS SUMMARY | 2025-03-10 10:26 | XMS_ITS | Encounter Summary ---
Author Organization [facility] Address [address] [place] [address] Phone Care Team Providers Care Solid Waste Landfill Technician Name Role Phone Unavailable Primary Care Provider Unavailabl e Reason for Visit * Reason Comments Medication Refill Encounter Details Date Type Department Care Team (Late st Contact Info) Description 12/10/2022 Refill [facility] - Primary Care - [address] [place] [address] Cammy Gutierrez APRN, POULTRY TRIMMER [address] [place] [address] Medication Refill Social History Tobacco [...]
--- OUTSIDE RECORDS SUMMARY | 2025-03-10 10:26 | XMS_ITS | Clinical Summary ---
Author Organization [facility] Care Team Providers Care Hand Tire Trimmer Name Role Phone Unavailable Primary Care Provider [...]
--- OUTSIDE RECORDS SUMMARY | 2025-03-10 10:26 | XMS_ITS | Clinical Summary ---
Author Organization [facility] [place] [address] Address [address] [place] [address] Care Team Providers Care Contact Center Assistant Name Role Phone Gamal Reese MD Primary Care Provider Allergies Active Allergy Reactions Criticality Noted Date Comments Clindamycin Diarrhea High 06/23/2020 C-Diff Duloxetine Diarrhea Low 12/22/2020 Hydroxychloroquine Rash Medium 06/23/2020 Rash on stomach Medications calcium carbonate-vitami n D3 (CALCIUM 600 + D,3,) 600-125 mg-unit tablet 0 2 Active aspirin (ASPIR-81) 81 mg tablet take 1 Tablet by oral route every day 0 0 6 Active levothyroxine (SYNTHROID, LEVOTHROID) 75 mcg tablet Take 1 tablet (75 mcg total) by mouth daily 7 Active atorvastatin (LIPITOR) 10 mg tablet Take 1 tablet (10 mg total) by mouth daily 7 Active multivitamin with minerals tablet Take 1 tablet by mouth daily Active cranberry fruit concentrate 450 mg tablet Take by mouth. Activ e acidophilus-pect in, citrus 100 million cell-10 mg capsule Take by mouth daily. Active predniSONE (DELTASONE) 10 mg tablet Take 1 tablet (10 mg) by mouth every other day Active gabapentin (NEURONTIN) 300 mg capsule Take 1 capsule (300 mg total) by mouth 2 (two) times a day 2 Active Lumigan 0.01 % ophthalmic drops 1 drop nightly 2 Active dorzolamide-emelia loL (COSOPT) 22.3-6.8 mg/mL ophthalmic solution INSTILL 1 DROP TWICE A DAY INTO BOTH EYES 2 Active nitroglycerin (NITROSTAT) 0.4 mg SL tabletIndication s:Coronary artery disease involving [place] coronary artery of [place] heart without angina pectoris Use one tabletunder the tongue every 5 minutes as needed for chest pain,max 3 tablets 25 tablet 3 4 Active spironolactone (ALDACTONE) 25 mg tablet Take 1 tablet (25 mg total) by mouth daily 90 tablet 3 4 Active risedronate (ACTONEL) 150 mg tablet PLEASE SEE ATTACHED FOR DETAILED DIRECTIONS Active loteprednol (LOTEMAX) 0.5 % ophthalmic suspension 1 drop 2 (two) times a day 4 Active cyanocobalamin (Vitamin B-12) 1,000 mcg tabletIndication s:Prevention of Vitamin B12 Deficiency Take 1 tablet (1,000 mcg total) by mouth daily Active L. acidophilus-dig enz cmb 5 5-250 mg capsule Take by mouth Activ e isosorbide mononitrate ER (IMDUR) 30 mg 24 hr tablet TAKE 1 TABLET BY MOUTH EVERY DAY 90 tablet 3 5 Active furosemide (LASIX) 20 mg tablet TAKE 1 TABLET BY MOUTH EVERY DAY 90 tablet 2 5 Active Entresto 24-26 mg tablet TAKE 1 TABLET BY MOUTH TWICE A DAY 180 tablet 1 5 Active clopidogreL (PLAVIX) 75 mg tablet TAKE 1 TABLET BY MOUTH EVERY DAY 90 tablet 2 5 Active carvediloL (COREG) 25 mg tablet TAKE 1/2 TABLET BY MOUTH EVERY 12 HOURS 90 tablet 3 5 Active Active Problems Problem Noted Date Diagnosed Date Dilated cardiomyopathy 06/10/2024 Chronic systolic congestive heart failure 2023 Angina pectoris, unspecified 08/16/2023 CAD (coronary artery disease) 10/26/2016 S/P CABG x 1 10/26/2016 S/P coronary artery stent placement 10/26/2016 Encounters Date Type Department Care Team Description 01/13/2025 Telephone [facility] Cardiology [address] [address] [place] [id number] Troy Barboza MD 12/16/2024 11:00 AM CDT Office Visit [facility] Cardiology at [address] [place] [address] Troy Barboza MD S/P CABG [...] on file Legal Sex Female 5:08 PM [employer] Gender Identity Not on file Sexual Orientation [...] 11/22/2020, 08/21 Influenza Vaccine (#1) 2024 Insurance Get Together MEDICARE MEDICARE Get Together Care Teams Contact Center Assistant Relationship Specialty Start Date End Date Gamal Reese MD PCP - General Family Practice 01/04/18
== END 2025-03-10 09:36 | disposition home or self-care (01) ==
LOC: ANHGOSHLAB 09:36
PROVIDERS: PCP Family Medicine; Visit Provider Nurse Practitioner Family
DX: N39.0 Urinary tract infection, site not specified (principal)
CPT/HCPCS: 87086

== ENCOUNTER 2025-03-19 08:44 | Outpatient (CLI) | payer MEDICARE, SELFPAY ==
[2025-03-19 13:16] LABS: Hematocrit 36.5 % (37.0-47.0); Hemoglobin 11.6 g/dL (12.0-15.0); Immature Granulocyte Percent A 0.3 % (0-0.5); Lymphocytes Absolute Auto 1.41 K/mm3 (0.9-3.2); Mean Corpuscular HGB Conc 31.8 g/dl (32-36); Mean Corpuscular Hemoglobin 33.6 pg (26-34); Mean Corpuscular Volume 105.8 fl (80-100); Nucleated Red Blood Cells Absolute Auto 0.000 K/mm3 (0.0-0.012); Nucleated Red Blood Cells Perc 0.0 % (0.0-0.2); Platelet Count Result 197 k/mm3 (150-375); Red Blood Count 3.45 M/mm3 (4.2-5.4); White Blood Count 8.9 K/mm3 (4.5-10.0)
[2025-03-19 13:39] LABS: Alanine Aminotransferase 28 U/L (6-35); Albumin Level 4.4 g/dL (3.5-5.1); Alkaline Phosphatase 62 U/L (38-126); Anion Gap 7 mmol/L (4-12); Aspartate Amino Transferase 59 U/L (14-36); Bilirubin,Total 0.8 mg/dL (0.2-1.3); Blood Urea Nitrogen 29 mg/dL (7-17); Calcium 10.5 mg/dL (8.4-10.2); Carbon Dioxide 27 mmol/L (22-30); Chloride 104 mmol/L (98-107); Cholesterol 158 mg/dL (0-200); Estimated Glomerular Filt Rate 36; Glucose 84 mg/dL (65-110); HDL Direct 53 mg/dL; Magnesium 1.7 mg/dL (1.6-2.3); Potassium 4.9 mmol/L (3.4-5.0); Sodium 138 mmol/L (137-145); Total Protein 7.5 g/dL (6.3-8.2); Triglycerides 219 mg/dL (<150)
[2025-03-19 14:41] LABS: Thyroid Stimulating Hormone Reflex 5.050 uIU/mL (0.465-4.68)
[2025-03-19 15:43] LABS: Free T4 Free Thyroxine Reflex 1.18 ng/dL (0.78-2.19)
[2025-03-19 17:01] LABS: Total Triiodothyronine (T3) 0.81 NG/ML (0.82-1.58)
[2025-03-19 18:41] LABS: Hemoglobin A1C 6.5 % (<5.7)
== END 2025-03-19 08:45 | disposition home or self-care (01) ==
PROVIDERS: PCP Family Medicine; Visit Provider Nurse Practitioner Family
DX: G57.93 Unspecified mononeuropathy of bilateral lower limbs (principal); E03.9 Hypothyroidism, unspecified; E78.5 Hyperlipidemia, unspecified; E55.9 Vitamin D deficiency, unspecified; I25.10 Atherosclerotic heart disease of native coronary artery without angina pectoris; I10 Essential (primary) hypertension; R73.03 Prediabetes
CPT/HCPCS: 36415; 80053; 80061; 82306; 83036; 83735; 84439; 84443; 84480; 85025